=== PATIENT | male | born 1940 | race Caucasian/White ===

== ENCOUNTER → 2016-07-17 | Day surgery (SDC) | payer OTHER ==
[~2016-07-17] VITALS: Ht 182.9 cm; Wt 117.9 kg
[~2016-07-17] MED LIST: AMOXICILLIN500 M2 PO; ASPIRIN EC81 M1 PO; AUGMENTIN 875-1 EACH PO; CENTRUM SILVER1 EAC4 PO; FLOMAX0.4 M1 PO; FLUOXETINE HCL20 M2 PO; INCRUSE ELLI62.5 MCG INH; LOSARTAN POTASS50 M1 PO; METFORMIN HCL1000 M2 PO; SIMVASTATIN40 M1 PO; TRAZODONE HCL50 M1 PO; VENTOLIN HFA18 GM INH
--- NOTE | 2016-07-17 12:08 | History & Physical Pre-Op ---
General Information and HPI History of Present Illness: Fredy is a 75-year-old diabetic who presents status post laceration to the plantar right foot with a retained foreign body. An aborted attempt to remove the foreign body in the office was made and the patient was given by mouth antibiotics. Patient returned for follow-up and was noted to have developed a cellulitis in the interim. Included the patient will require a formal I&D of his foreign body in the OR. The patient denies any systemic signs of infection. Patient denies nausea vomiting fever chills. Allergies/Medications Allergies: Coded Allergies: NO KNOWN ALLERGIES (08/04/11) Home Med list Albuterol Sulfate (Ventolin Hfa) 90 MCG HFA.AER.AD 2 PUF INH Q4-6 PRN PRN COPD (Reported) Aspirin (Ecotrin*) 81 MG TABLET.DR 1 TAB PO QOD PROPHO (Reported) Fluoxetine HCl 20 MG CAPSULE 1 CAP PO DAILY DEPRESSION (Reported) Losartan Potassium 50 MG TABLET 1 TAB PO DAILY HTN (Reported) Metformin HCl (Metformin HCl ER) 1,000 MG TAB.ER.24 1 TAB PO DAILY DM II ( Reported) Simvastatin (Simvastatin*) 40 MG TABLET 1 TAB PO QPM CHOLESTEROL (Reported) Tamsulosin HCl (Flomax) 0.4 MG CAP.ER.24H 1 CAP PO DAILY BPH (Reported) Trazodone HCl 50 MG TABLET 0.5 TAB PO QPM SLEEP (Reported) Umeclidinium [place] (Incruse Ellipta) 62.5 MCG/ACTUATION BLST.W.DEV BREATH ( Reported) Past History Medical History Endocrine: diabetes Pneumonia Vaccine: 08/19/03 Surgical History Pertinent Surgical History: non-contributory Review of Systems Review of Systems: Unremarkable except for that noted history of present illness. Exam & Diagnostic Data Physical Exam: Lungs clear bilaterally. Heart sounds rate and rhythm regular. Lower extremity physical exam demonstrates intact pedal pulses bilaterally. Both dorsalis pedis and posterior tibial arteries are palpable bilaterally. Patient with a sensory deficit noted to the plantar foot in a moccasin type distribution. There is a stellate portal entry noted at the plantar lateral aspect of the right forefoot. There is probing noted centrally. There is approximate 3-4 cm of cellulitis emanating from the open wound. No obvious fluctuance or crepitus identified. There is some purulent drainage noted from the central aspect of the wound. X- ray findings demonstrated a radiopaque foreign body noted at the plantar aspect of the fifth metatarsal head. Assessment/Plan Assessment/Plan: Right foot cellulitis with the retained foreign body, status post puncture wound. A lengthy discussion reviewing both surgical and conservative options held the patient at bedside and the patient elects to go forward with surgery despite the risks. As Ranked By This Provider Problem List: 1. Cellulitis of right lower extremity Attending MD Review Statement Attending Statement Attending MD Statement: examined this patient
--- NOTE | 2016-07-17 13:54 | Operative Report ---
Operative/Inv Procedure Report Surgery Date: 07/17/16 Name of Procedure: 1 incision and drainage 2 closure of complicated laceration deep with local random advancement flap 3 intraoperative administration of ankle block anesthesia Pre-Operative Diagnosis: 1 open infected wound right foot with retained foreign body 2 Shar laceration plantar right foot Post-Operative Diagnosis: The same Estimated Blood Loss: scant Surgeon/Application Systems Engineer: REGULO OCHOA,TOÑA Harrison DPM Anesthesia: moderate sedation, block Operative/Procedure Note Note: After obtaining informed consent the patient was brought to the operating room and placed on the operating table in the supine position. The patient was then securely fastened to the operating table utilizing safety belt. After administration of IV sedation, 10 mL of 0.5% Marcaine by was infiltrated about the patient's right ankle. Well-padded ankle tourniquet was packed about the patient's right lower extremity. 2 g of Ancef were delivered intravenously times one dose. The right foot and ankle within scrubbed prepped and draped in usual aseptic manner. The right lower extremity was elevated to examine to limb , which point the ankle tourniquet was inflated 250 mmHg. Attention directed plantar lateral aspect the right foot, where a linear laceration was identified with cellulitis emanating from the wound. There was laceration to the deep fascia with retained debris. Under intraoperative image intensification, the foreign body was identified and removed. Nipple was then irrigated with 3 L of normal sterile saline infusion 50,000 units of bacitracin. Following this, the foot was redraped and the surgeon's top gloves were changed clean gloves. A plantar lateral plantar medial flap was then developed with undermining, mobilization and advancement adjacent tissues. The plantar lateral flap was rotated towards central aspect the wound and held on its deep side 3-0 Vicryl. The plantar lateral flap, was similarly mobilized and advanced and again held centrally with 3-0 Vicryl. The septae stitches reapproximated 4-0 Vicryl and the skin edges reapproximated 3-0 nylon. Incision was dressed with Xeroform 4 x 4's Kerlix and Rene wrap. Attention was noted tolerate both procedure and anesthesia well and the patient was transported from the operating room to recovery by sent stable best assess intact all digits right foot.
== END ==
LOC: STS 02:43
DX: S91.321A Laceration with foreign body, right foot, initial encounter (principal); L03.115 Cellulitis of right lower limb; W45.8XXA Other foreign body or object entering through skin, initial encounter; E11.9 Type 2 diabetes mellitus without complications; Z79.84 Long term (current) use of oral hypoglycemic drugs; Z79.82 Long term (current) use of aspirin
CPT/HCPCS: J0690; J1885; J2001; J2250

== ENCOUNTER 2016-08-11 16:40 | Inpatient (IN) | payer OTHER ==
[~2016-08-11] VITALS: Ht 182.9 cm; Wt 117.9 kg
[~2016-08-11 16:40] MED LIST changes: -AMOXICILLIN500 M2 PO; -AUGMENTIN 875-1 EACH PO; -CENTRUM SILVER1 EAC4 PO
--- NOTE | 2016-08-11 17:15 | ED GENERAL ADULT ---
History of Present Illness General Chief Complaint: General Adult Stated Complaint: WEAKNESS FEVER Source: patient, family, old records, EMS Exam Limitations: no limitations Vital Signs & Intake/Output Vital Signs & Intake/Output Vital Signs Date Time Temp Pulse Resp B/P B/P Pulse O2 O2 Flow FiO2 Mean Ox Delivery Rate 08/12 0730 100.5 08/12 0713 100.5 78 20 110/59 92 08/12 0048 85 92 08/11 2245 78 92 08/11 2200 Room Air 08/11 2105 98.3 91 18 142/82 92 Room Air 08/11 1647 99.4 94 20 156/70 96 Room Air ED Intake and Output 08/12 0000 08/11 1200 Intake Total 4120 Output Total 100 Balance 4020 Intake, IV 4000 Intake, Oral 120 Output, Urine 100 Patient 260 lb Weight Weight Reported by Patient Measurement Method Allergies Coded Allergies: adhesive (BLISTERS 08/11/16) Reconcile Medications Albuterol Sulfate (Ventolin Hfa) 90 MCG HFA.AER.AD 2 PUF INH Q4-6 PRN PRN COPD (Reported) Aspirin (Ecotrin*) 81 MG TABLET.DR 1 TAB PO QOD PROPHO (Reported) Fluoxetine HCl 20 MG CAPSULE 1 CAP PO DAILY DEPRESSION (Reported) Losartan Potassium 50 MG TABLET 1 TAB PO DAILY HTN (Reported) Metformin HCl (Metformin HCl ER) 1,000 MG TAB.ER.24 1 TAB PO DAILY DM II ( Reported) Multivit-Min/FA/Lycopen/Lutein (Centrum Silver Men Tablet) 300 MCG-600 MCG-300 MCG TABLET 1 TAB PO DAILY SUPPLEMENT (Reported) Simvastatin (Simvastatin*) 40 MG TABLET 1 TAB PO QPM CHOLESTEROL (Reported) Tamsulosin HCl (Flomax) 0.4 MG CAP.ER.24H 1 CAP PO DAILY BPH (Reported) Trazodone HCl 50 MG TABLET 0.5 TAB PO QPM SLEEP (Reported) Umeclidinium [place] (Incruse Ellipta) 62.5 MCG/ACTUATION BLST.W.DEV 1 PUFF INH DAILY COPD (Reported) Triage Note: BIBA FROM HOME. PER EMS INCREASED WEAKNESS, S/P FALL A FEW HOURS AGO. ON ROUTE PT BECAME NAUSEOUS AND VOMITTED. PT ALERT, PLACED ON MONITOR. Triage Nurses Notes Reviewed? yes Onset: Abrupt Duration: day(s):, constant, getting worse Timing: recent history Injury Environment: home No Modifying Factors: none HPI: 75-year-old male comes into emergency room with complaints of fever or chills body aches and some redness to his right leg. Patient had a recent surgery performed by Dr. Marr in the middle of July on the right foot. Patient had an infection. Hx of diabetes. Patient was hospitalized. Denies any chest pain shortness of breath. Denies any other associated symptoms. (BRIAN BRYSON) Past History Travel History Traveled to [place] past 21 day No Medical History Any Pertinent Medical History? see below for history Gastrointestinal: hiatal hernia Endocrine: diabetes Pneumonia Vaccine: 08/19/03 Surgical History Surgical History: right foot Psychosocial History What is your primary language Czech Tobacco Use: Never used ETOH Use: denies use Family History Hx Contributory? No (BRIAN BRYSON) Review of Systems Review of Systems Constitutional: Reports: see HPI. EENTM: Reports: no symptoms. Respiratory: Reports: no symptoms. Cardiovascular: Reports: no symptoms. GI: Reports: no symptoms. Genitourinary: Reports: no symptoms. Musculoskeletal: Reports: see HPI. Skin: Reports: see HPI. Neurological/Psychological: Reports: no symptoms. Hematologic/Endocrine: Reports: no symptoms. Immunologic/Allergic: Reports: no symptoms. All Other Systems: Reviewed and Negative (BRIAN BRYSON) Physical Exam Physical Exam General Appearance: well developed/nourished, alert, awake Head: atraumatic, normal appearance Eyes: Bilateral: normal appearance. Ears, Nose, Throat: normal pharynx, normal ENT inspection Neck: normal inspection Respiratory: normal breath sounds, no respiratory distress Cardiovascular: regular rate/rhythm, tachycardia Gastrointestinal: soft Back: normal inspection Extremities: erythema to right lower leg below knee, warmth, erythema to right foot, open wound, Neurologic/Psych: awake, alert, oriented x 3, normal mood/affect Skin: warm/dry, see above Core Measures ACS in differential dx? Yes CVA/TIA Diagnosis: No Severe Sepsis Present: Yes BC x2: Yes Lactic Acid x2: Yes IV ABX Broad Spectrum: Yes NS/LR Started: Yes Septic Shock Present: No (BRIAN BRYSON) Progress Differential Diagnoses I considered the following diagnoses in my evaluation of the patient: Cellulitis, osteomyelitis, sepsis, DVT, pneumonia, UTI, Plan of Care: Orders Procedure Date/time Status Consistent Carbohydrate 3 08/12 B Active CBC WITHOUT DIFFERENTIAL 08/12 06 Active BASIC ELECTROLYTES PLUS BUN&CR 08/12 06 Active Vital Signs 08/11 2224 Active Teach/Educate 08/12 2223 Active Pain Treatment and Response 08/11 222 Active Nutritional Intake, Monitor 08/11 222 Active Isolation 08/11 2224 Active Intake & Output 08/11 222 Active Patient Care Conference 08/12 2223 Active Activity/Ambulation 08/12 2223 Active Pathway - chart 08/11 2114 Active Pathway - chart 08/11 205 Active OXYGEN SETUP (GEN) 08/12 1915 Complete Saline Lock 08/12 1915 Active Misc Message 08/12 1915 Active ED Holding Orders 08/12 1915 Active Vital Signs 08/12 1915 Active Activity/Ambulation 08/12 1915 Active Code Status 08/11 191 Active Patient Data 08/11 1850 Active Admit to inpatient 08/11 1849 Active BLOOD CULTURE 08/11 1745 Active Intake & Output 08/11 1728 Active GLYCOSYLATED HGB 08/11 1720 Active BLOOD CULTURE 08/11 1654 Active LACTIC ACID 08/11 1654 Active WESTERGREN SED RATE 08/11 1654 Complete C-REACTIVE PROTEIN 08/11 1654 Active COMPREHENSIVE METABOLIC PANEL 08/11 1654 Active CBC WITHOUT DIFFERENTIAL 08/11 1654 Complete EKG 08/11 1650 Active TRC EVALUATION (GEN) 08/11 UNK Complete CONTIN. POSITIVE AIRWAY PRESS 08/11 UNK Complete PT Evaluate & Treat 08/11 UNK Active House Staff 08/11 UNK Active Lab Add-on Test 08/11 UNK Active VTE Mechanical Prophylaxis 08/11 UNK Active FingerStick- Glucose 08/11 UNK Active Elevate 08/11 UNK Active PHYSICIAN CONSULT 08/11 UNK Active Current Medications Sig/Yenifer Start time Last Medication Dose Stop Time Status Admin Atorvastatin Calcium 20 MG 1700 08/12 1700 AC (Lipitor) Aspirin Buffered 81 MG DAILY 08/12 1000 AC (Ecotrin) Enoxaparin Sodium 40 MG DAILY 08/12 1000 AC (Lovenox) Fluoxetine HCl 20 MG DAILY 08/12 1000 AC (Prozac) Losartan Potassium 50 MG DAILY 08/12 1000 AC (Cozaar) Tamsulosin HCl 0.4 MG DAILY 08/12 1000 AC (Flomax) Tiotropium [place] 1 PUF DAILY 08/12 1000 AC (Spiriva) Insulin Aspart 0 TIDAC 08/12 0800 AC (NovoLOG) Cefazolin Sodium 1,000 MG IQ8 08/12 0000 CAN (Kefzol-Ancef Inj) Ampicillin Sodium/ 3,000 MG Q6 08/11 2359 AC 08/12 Sulbactam Sodium 0501 (Unasyn) Sodium Chloride 100 ML (Normal Saline 0.9%) Trazodone HCl 25 MG QPM 08/11 2200 AC 08/11 (Desyrel) 2259 Acetaminophen 650 MG Q6P PRN 08/11 2114 AC 08/12 (Tylenol) 0730 Ibuprofen 600 MG Q6P PRN 08/11 2114 AC (Motrin) Morphine Sulfate 2 MG Q6-PRN PRN 08/11 2114 AC (Morphine) Albuterol Sulfate 2 PUF Q4-6 PRN PRN 08/11 2100 AC (Ventolin) Laboratory Tests 08/11/16 1954: Lactic Acid Cancelled 08/11/16 1720: Anion Gap 10, Estimated GFR > 60, BUN/Creatinine Ratio 27.5 H, Glucose 174 H, Hemoglobin A1c Pending, Lactic Acid 1.3, Calcium 9.0, Total Bilirubin 0.9, AST 28, ALT 48, Alkaline Phosphatase 71, C-Reactive Prot, Quant 1.6 H, Total Protein 6.6, Albumin 3.8, Globulin 2.8, Albumin/Globulin Ratio 1.4, CBC w Diff MAN DIFF ORDERED, RBC 4.79, MCV 88.1, MCH 29.3, RDW 13.8, MPV 8.0, Gran % 93.8 H, Lymphocytes % 1.3 L, Monocytes % 4.9, Eosinophils % 0, Basophils % 0 L, Absolute Granulocytes 13.6 H, Segmented Neutrophils 92 H, Band Neutrophils 5, Absolute Lymphocytes 0.2 L, Lymphocytes 1 L, Monocytes 2, Absolute Monocytes 0.7 H, Absolute Eosinophils 0, Absolute Basophils 0, Platelet Estimate ADEQUATE , Normocytic RBCs VERIFIED, Normochromic RBCs VERIFIED, PUBS MCHC 33.3, ESR Westergren 8 Microbiology 08/11 1807 BLOOD: Blood Culture - RECD 08/11 1803 BLOOD: Blood Culture - RECD 08/11 1654 BLOOD: Blood Culture - CAN Cancelled: Quantity not sufficient for Aerobic blood culture bottle. Diagnostic Imaging: Viewed by Me: Radiology Read. Discussed w/RAD: Radiology Read. Radiology Impression: SERVICE DATE: 08/11/16 EXAM TYPE: RAD - XRY-FOOT COMPLETE, R; [id number], RIGHT EXAMINATION: XR TIBIA AND FIBULA AND FOOT, RIGHT CLINICAL INFORMATION: 75-year-old man with pain and swelling. Evaluate for osteomyelitis. COMPARISON: None TECHNIQUE: AP and lateral views of the right tibia and fibula and foot were obtained. FINDINGS: Tibia/fibula: There is no evidence of acute fracture. Alignment remains anatomic. Prominent arterial atherosclerotic calcifications are visible. There is no abnormal periosteal reaction, osteolysis, or soft tissue gas seen. Foot: There is no evidence of acute fracture. Alignment is difficult to assess with the acquired images, although there is probably a prominent hallux valgus deformity. Degenerative changes are noted at the MTP and PIP joints. There are small plantar and Achilles calcaneal spurs. Again, no discrete osteolysis, abnormal periosteal reaction, or soft tissue gas is appreciated. IMPRESSION: No convincing radiographic evidence of osteomyelitis. DICTATED BY: CHRISTIAN CRUZ MD DATE/TIME DICTATED:08/11/161813 BAR MANAGER:APARNA Initial ED EKG: normal intervals, normal p-waves, normal sinus rhythm, rate (97) , nonspecific ST T wave chg (BRIAN BRYSON) Departure Departure Disposition: STILL A PATIENT Condition: Stable Clinical Impression Primary Impression: Sepsis Secondary Impressions: Cellulitis of right lower extremity Referrals: LIO WALL MD (PCP/Family) Departure Forms: Customer Survey General Discharge Information Admission Note Spoke With: LIO WALL MD Documentation of Exam: Documentation of any treatments & extenuating circumstances including Concerns Regarding Discharge (functional status, medication knowledge or non-compliance, living conditions, etc.) that warrant an admission rather than observation: Patient will require IV antibiotics. IV fluids. Patient tachycardia. Elevated white count. Positive source of infection. Febrile at home. Patient will require bone care consultation. Diabetic. Patient would do poorly as an outpatient. (BRIAN BRYSON) PA/WOOL CARDER Co-Sign Statement Statement: ED Attending supervision documentation- [X] I saw and evaluated the patient. I have also reviewed all the pertinent lab results and diagnostic results. I agree with the findings and the plan of care as documented in the PA's/WOOL CARDER's documentation. [X] I have reviewed the ED Record and agree with the PA's/WOOL CARDER's documentation. [] Additions or exceptions (if any) to the PAs/WOOL CARDER's note and plan are summarized below: [] (RAPHAEL BOWLES,ROSALINE Bland) Critical Care Note Critical Care Note Critical Care Time: 30-74 min (35) (DAYANARA HOUSTON,BRIAN)
[2016-08-11] MEDS ORDERED: CENTRUM SILVER1 EAC4 PO (17:18)
[2016-08-11 17:32] LABS: ABSOLUTE BASOPHIL COUNT 0 /CUMM (0.0-0.2); ABSOLUTE EOSINOPHIL COUNT 0 /CUMM (0.0-0.7); ABSOLUTE GRANULOCYTE CT 13.6 /CUMM (1.4-6.5); ABSOLUTE LYMPH COUNT 0.2 /CUMM (1.2-3.4); ABSOLUTE MONOCYTE COUNT 0.7 /CUMM (0.10-0.60); BASOPHIL % 0 % (0.0-2.0); EOSINOPHIL % 0 % (0-5); GRANULOCYTE % 93.8 % (42.2-75.2); HEMATOCRIT 42.2 % (42-52); MEAN CORPUSCULAR HGB 29.3 PG (27.0-31.0); MEAN CORPUSCULAR HGB CONC 33.3 G/DL (33.0-37.0); MEAN CORPUSCULAR VOLUME 88.1 FL (80.0-94.0); PLATELET COUNT 164 /CUMM (130-400); RBC DISTRIBUTION WIDTH 13.8 % (11.5-14.5); RED BLOOD CELL CT 4.79 /CUMM (4.70-6.10); WHITE BLOOD CELL COUNT 14.5 /CUMM (4.8-10.8)
--- NOTE | 2016-08-11 18:20 | RADIOLOGY REPORT ---
EXAMINATION: XR TIBIA AND FIBULA AND FOOT, RIGHT CLINICAL INFORMATION: 75-year-old man with pain and swelling. Evaluate for osteomyelitis. COMPARISON: None TECHNIQUE: AP and lateral views of the right tibia and fibula and foot were obtained. FINDINGS: Tibia/fibula: There is no evidence of acute fracture. Alignment remains anatomic. Prominent arterial atherosclerotic calcifications are visible. There is no abnormal periosteal reaction, osteolysis, or soft tissue gas seen. Foot: There is no evidence of acute fracture. Alignment is difficult to assess with the acquired images, although there is probably a prominent hallux valgus deformity. Degenerative changes are noted at the MTP and PIP joints. There are small plantar and Achilles calcaneal spurs. Again, no discrete osteolysis, abnormal periosteal reaction, or soft tissue gas is appreciated. IMPRESSION: No convincing radiographic evidence of osteomyelitis.
--- NOTE | 2016-08-11 20:12 | History & Physical ---
JANELLE BOWLES[place] [place]: General Information and HPI MD Statement: I have seen and personally examined DOMITILA SOL and documented this H&P. The patient is a 75 year old M who presented with a patient stated chief complaint of fever. Source of Information: patient, family, old records Exam Limitations: no limitations History of Present Illness: Mr. Sol is a 75 y/o M with PMHx of non-insulin dependent T2DM, TORI on CPAP and recent I&D and flap closure of complicated laceration of right foot with retained foreign body (07/17) who presents with fevers, chills and right leg erythema of several hours duration. History is obtained from patient and his at bedside. Patient was in his usual state of health until several hours before current presentation when he slipped and fell down on the floor. According to his , he was "wobbly" following the fall and had to be helped to get up on his feet again. Following the fall, he complained of being cold. His checked his temperature which came back at 101.8. His also noted that his right lower leg was red which she does not recall being present before. Patient reports lack of appetite and nausea and states that he vomited twice en route to the ED. Patient reports that his right leg occasionally feels slightly painful. ROS is also positive for cough productive of clear sputum which his attributes to his allergies, increased urinary frequency and nocturia. He denies chest pain, shortness of pain, abdominal pain and dysuria. Of note, patient had recent I&D and flap closure of complicated laceration of right foot with retained foreign body (07/17) by Dr. Marr, after stepping on glass shards which remained embedded on the plantar surface of his right foot for several months. Following the surgery, he took doxycycline for three weeks which he recently stopped taking. Allergies/Medications Allergies: Coded Allergies: adhesive (BLISTERS 08/11/16) Home Med list Albuterol Sulfate (Ventolin Hfa) 90 MCG HFA.AER.AD 2 PUF INH Q4-6 PRN PRN COPD (Reported) Aspirin (Ecotrin*) 81 MG TABLET.DR 1 TAB PO QOD PROPHO (Reported) Fluoxetine HCl 20 MG CAPSULE 1 CAP PO DAILY DEPRESSION (Reported) Losartan Potassium 50 MG TABLET 1 TAB PO DAILY HTN (Reported) Metformin HCl (Metformin HCl ER) 1,000 MG TAB.ER.24 1 TAB PO DAILY DM II ( Reported) Multivit-Min/FA/Lycopen/Lutein (Centrum Silver Men Tablet) 300 MCG-600 MCG-300 MCG TABLET 1 TAB PO DAILY SUPPLEMENT (Reported) Simvastatin (Simvastatin*) 40 MG TABLET 1 TAB PO QPM CHOLESTEROL (Reported) Tamsulosin HCl (Flomax) 0.4 MG CAP.ER.24H 1 CAP PO DAILY BPH (Reported) Trazodone HCl 50 MG TABLET 0.5 TAB PO QPM SLEEP (Reported) Umeclidinium Gibson (Incruse Ellipta) 62.5 MCG/ACTUATION BLST.W.DEV 1 PUFF INH DAILY COPD (Reported) Past History Travel History Traveled to [place] past 21 day No Medical History Cardiovascular: hypertension Respiratory: COPD, obstructive sleep apnea Gastrointestinal: hiatal hernia Renal: benign prost hyperplasia Psychiatric: depression Endocrine: diabetes Other Medical Hx: complicated laceration of right foot with retained foreign body Pneumonia Vaccine: 08/19/03 Surgical History Surgical History: right foot I&D and flap closure of laceration Past Family/Social History Psychosocial History Where do you live? Home Who Do You Live With? spouse Services at Home: None Primary Language: Andorran Smoking Status: Former Smoker (30 Pack Years, Quit 20 Yrs Ago) Functional Ability ADLs Independent: dressing, eating, toileting, bathing. Ambulation: walking stick IADLs Independent: shopping, housework, finances, food prep, telephone, transportation , medication admin. Review of Systems Review of Systems Constitutional: Reports: chills, fever, weakness. EENTM: Reports: no symptoms. Cardiovascular: Reports: peripheral edema (right leg). Denies: chest pain. Respiratory: Reports: cough, sputum production. Denies: short of breath. GI: Reports: nausea, vomiting. Denies: abdominal pain. Genitourinary: Reports: frequency, nocturia. Denies: dysuria. Musculoskeletal: Reports: no symptoms. Skin: Reports: erythema (right leg). Neurological/Psychological: Reports: no symptoms. Hematologic/Endocrine: Reports: no symptoms. Immunologic/Allergic: Reports: no symptoms. All Other Systems: Reviewed and Negative Exam & Diagnostic Data Last 24 Hrs of Vital Signs/I&O Vital Signs Date Time Temp Pulse Resp B/P B/P Pulse O2 O2 Flow FiO2 Mean Ox Delivery Rate 08/11 1647 99.4 94 20 156/70 96 Room Air Physical Exam General Appearance Oriented X3, No Acute Distress, Drowsy Skin No Rashes Skin Temp/Moisture Exam: Warm/Dry Sepsis Skin Exam (color): Normal for Ethnicity HEENT Atraumatic, Mucous Membr. moist/pink Neck Supple, No JVD Cardiovascular Regular Rate, Normal S1, Normal S2 Lungs Clear to Auscultation Abdomen Soft, No Tenderness, Positive Bowel Sounds, Obese Extremities No Clubbing, No Cyanosis, Right Lower Extremity with Erythema Extending from Ankle to Knee and 2+ Pitting Edema, Left Lower Extremity with 1+ Pitting Edema Last 24 Hrs of Labs/Faheem: Laboratory Tests 08/11/161953: Lactic Acid Cancelled 08/11/16 1720: Anion Gap 10, Estimated GFR > 60, BUN/Creatinine Ratio 27.5 H, Glucose 174 H, Lactic Acid 1.3, Calcium 9.0, Total Bilirubin 0.9, AST 28, ALT 48, Alkaline Phosphatase 71, C-Reactive Prot, Quant 1.6 H, Total Protein 6.6, Albumin 3.8, Globulin 2.8, Albumin/Globulin Ratio 1.4, CBC w Diff MAN DIFF ORDERED, RBC 4.79, MCV 88.1, MCH 29.3, RDW 13.8, MPV 8.0, Gran % 93.8 H, Lymphocytes % 1.3 L, Monocytes % 4.9, Eosinophils % 0, Basophils % 0 L, Absolute Granulocytes 13.6 H, Segmented Neutrophils 92 H, Band Neutrophils 5, Absolute Lymphocytes 0.2 L, Lymphocytes 1 L, Monocytes 2, Absolute Monocytes 0.7 H, Absolute Eosinophils 0 , Absolute Basophils 0, Platelet Estimate ADEQUATE, Normocytic RBCs VERIFIED, Normochromic RBCs VERIFIED, PUBS MCHC 33.3, ESR Westergren 8 Microbiology 08/11 1807 BLOOD: Blood Culture - RECD 08/11 180 BLOOD: Blood Culture - RECD 08/11 1653 BLOOD: Blood Culture - CAN Cancelled: Quantity not sufficient for Aerobic blood culture bottle. Diagnostic Data Other Results XR R FOOT/TIBIA-FIBULA: No convincing radiographic evidence of osteomyelitis. Assessment/Plan Assessment: Mr. Sol is a 75 y/o M with PMHx of non-insulin dependent T2DM, TORI on CPAP and recent I&D and flap closure of complicated laceration of right foot with retained foreign body (07/17) who is admitted for sepsis secondary to right leg cellulitis. #Sepsis 2/2 right leg cellulitis: Presented with fever, chills and right leg erythema. Had fever with temperature of 101.8 at home but afebrile here. WBC count 14.5 with 5% bands. Hemodynamically stable with lactic acid of 1.3. Recent I&D and flap closure of complicated laceration of right foot with retained foreign body (07/17) followed by 3 weeks of doxycycline. XR R foot/tibia-fibula with no evidence of osteomyelitis. S/p 1 dose of vancomycin and ceftazidime in the ED. * Admit to General Medicine. * Start Unasyn 3 g IV Q6H. * Wound care consult in the AM. * Check BCx. #Non-insulin dependent T2DM: Takes metformin ER 1000 mg PO daily. * Hold oral hypoglycemic agents while inpatient. * Accu-checks and low-dose sliding scale Novolog TIDAC. * Check HbA1c. #HTN: * Continue uvzgy-jg-rvxemsjgu losartan 50 mg PO daily. #HLD: Takes simvastatin 40 mg PO daily and daily low-dose aspirin. * Atorvastatin 20 mg PO daily while inpatient. * Continue zggpa-vt-pvahryavm aspirin 81 mg PO daily. #COPD: Not on home oxygen. Currently not in exacerbation. Satting well on room air. * Continue xehjx-mg-pzmjrbxzp Incruse Ellipta 62.5 mg 1 puff daily and albuterol inhaler PRN. #TORI: * Continue nocturnal CPAP. #BPH: * Continue vefhc-rn-gfxmhxrel tamsulosin 0.4 mg PO daily. #Depression: * Continue piljk-vr-zchbbdigo fluoxetine 20 mg PO daily. #Insomnia: * Continue vuuqs-xu-sgygvvdix trazodone 25 mg PO daily. Diet: Consistent Carbohydrate 3 DVT PPx: Lovenox and ALPs CODE: FULL As Ranked By This Provider Problem List: 1. Sepsis 2. Cellulitis of right lower extremity 3. HTN (hypertension) 4. HLD (hyperlipidemia) 5. Non-insulin dependent type 2 diabetes mellitus 6. COPD (chronic obstructive pulmonary disease) 7. TORI on CPAP 8. BPH (benign prostatic hyperplasia) 9. Depression 10. Insomnia Core Measures/Miscellaneous Acute Coronary Syndrome ACS Diagnosis: No Cerebrovascular Accident CVA/TIA Diagnosis: No Congestive Heart Failure CHF Diagnosis: No VTE (View Protocol) VTE Risk Factors: Acute medical illness, Age > 40, Obesity [facility] prophylaxis d/t: No contraindications No VTE Pharm Prophylaxis d/t: No contraindications VTE Diagnosis: No VTE Type: NONE VTE Confirmed by (Test): NONE Sepsis (View Protocol) Severe Sepsis Present: No Septic Shock Septic Shock Present: No Miscellaneous Documentation Attending Case Discussed With: LIO WALL MD Primary Care Physician: LIO WALL MD Patient sees these Specialists Design Studio Consultant Jazmin Man MD Pet Sitting Baltazar Marr DPM Level of Patient Care: General Medicine CRICKET HUANG 08/11/162041: Resident Review Statement Resident Statement: examined this patient, discussed with general internist, agreed with general internist, discussed with family, reviewed images, amended to note Other Findings: This is a 75 years old gentleman with past medical history significant for hypertension hyperlipidemia and nef-pdvyvmj-kskvqnyaf diabetic mellitus who is presenting with one-day history of fever general body weakness and a fall. The patient reports stepping on broken glasses and had a retained piece of glass in his right foot which necessitated a procedure by Dr. Baron to remove the foreign body. He was fairly well until today when the noted that he had fever temperatures recorded 101.8 and also weak and fell after tripping. Patient denies any abdominal pain nausea and a mild low reports one episode of vomiting while on transit come into the hospital. He denies any dysuria or change in urine frequency, he has no cough chest pain or palpitation. Vital signs on arrival temperature 99.4 heart rate of 94 respiration of 20 blood pressure 156/70 and saturating 96% on room air Physical examination: Patient lying comfortably on the bed not in any acute distress alert and oriented to time place and person, by the bedside. HEENT: PERRLA, no distended neck vessels Chest: Clear lungs bilaterally Heart: Regular rate and rhythm, S1 S2 normal, no murmurs Extremities: Mild bilateral pitting edema more erythematous on the morin of the right lower limb extend from below the knee to just above the ankle joint more prominent on the anterior there is no obvious discharge Labs: Leukocytosis 14,500 with left shift to granulocytes 93.8 and 22 bands, ESR of 8, potassium 3.7, BUN of 22. Lactic acid 1.3 and CRP of 1.6 Imaging: Tibia-fibula x-ray and x-ray of the foot does not show any osteomyelitis or fractures Assessment and plan 76 years old with tjr-bjbvsan-uqnizsuzs diabetes mellitus and history of foot ulcer after injury with broken glass and having a foreign substance presented with one-day history of fever general body weakness and a fall found to have leukocytosis of 14,500 with left shift and 92 bands Problem list Cellulitis of the right lower limb Sepsis Eio-gqcshax-etsyxokya diabetes mellitus BPH Hypertension Hyperlipidemia Obstructive sleep apnea Admit the patient to general medicine floor Start the patient on IV Unasyn 3 g every 6 Blood culture, follow-up for any growth and did not O Álvarez of antibiotic treatment for sensitivity Will hold patient's metformin and to start on insulin sliding scale low-dose Accu-Cheks Consistent carbohydrate 3 diet TRC evaluation and CPAP at bedtime Continue home antihypertensive medication losartan 50 mg daily Continue with tamsulosin 0.4 mg
[2016-08-11 21:05] VITALS: BP 142/82
[2016-08-12 07:13] VITALS: BP 110/59
--- NOTE | 2016-08-12 08:18 | PN- Housestaff ---
Subjective Follow-up For: Chronic hypoxic respiratory failure COPD exacerbation Acute on chronic anemia Subjective: Patient seen and examined this morning. Resting comfortably in bed with no acute complaints. Reports a slight improvement in his leg in terms of the size of redness and pain. He denies any fever, chills, chest discomfort, palpitations, dyspnea, abdominal pain, nausea, vomiting, headache. No events reported overnight. Review of Systems Constitutional: Reports: see HPI. Objective Last 24 Hrs of Vital Signs/I&O Vital Signs Date Time Temp Pulse Resp B/P B/P Pulse O2 O2 Flow FiO2 Mean Ox Delivery Rate 08/12 0730 100.5 08/12 0713 100.5 78 20 110/59 92 08/12 0048 85 92 08/11 2245 78 92 08/11 2200 Room Air 08/11 2105 98.3 91 18 142/82 92 Room Air 08/11 1647 99.4 94 20 156/70 96 Room Air Intake & Output 08/12 1600 08/12 0800 08/12 0000 Intake Total 350 4120 Output Total 100 Balance 350 4020 Intake, IV 100 4000 Intake, Oral 250 120 Output, Urine 100 Patient 117.934 kg Weight Weight Reported by Patient Measurement Method Physical Exam General Appearance: Alert, Cooperative, No Acute Distress Other Physical Findings: Skin No Rashes Skin Temp/Moisture Exam: Warm/Dry HEENT Atraumatic, Mucous Membr. moist/pink Neck Supple, No JVD Cardiovascular Irregularly irregular Lungs Scattered Expiratory Wheezes Distributed Throughout Bilateral Lung Chacon, Bibasilar Rhonchi Abdomen Soft, No Tenderness, Positive Bowel Sounds Extremities No Clubbing, No Cyanosis, No Edema Current Medications: Current Medications Sig/Yenifer Start time Last Medication Dose Route Stop Time Status Admin Acetaminophen 650 MG Q6P PRN 08/11 2114 AC 08/12 PO 0730 Albuterol Sulfate 2 PUF Q4-6 PRN PRN 08/11 2100 AC INH Ampicillin Sodium/ 3,000 MG Q6 08/11 2359 AC 08/12 Sulbactam Sodium IV 0501 Sodium Chloride 100 ML Aspirin Buffered 81 MG DAILY 08/12 1000 AC PO Aspirin Buffered 81 MG .[QOD] 08/11 2100 DC PO Atorvastatin Calcium 20 MG 1700 08/12 1700 AC PO Cefazolin Sodium 1,000 MG IQ8 08/12 0000 CAN IV Ceftazidime 0 .STK-MED ONE 08/11 1910 DC .ROUTE Ceftazidime 1,000 MG ONCE ONE 08/11 1845 DC 08/11 IV 08/11 184 1927 Enoxaparin Sodium 40 MG DAILY 08/12 1000 AC SC Fluoxetine HCl 20 MG DAILY 08/12 1000 AC PO Ibuprofen 600 MG Q6P PRN 08/115 AC PO Insulin Aspart 0 TIDAC 08/12 0800 AC SC Losartan Potassium 50 MG DAILY 08/12 1000 AC PO Morphine Sulfate 2 MG Q6-PRN PRN 08/115 AC IV Sodium Chloride 1,000 ML BOLUS ONE 08/11 1845 DC 08/11 IV 08/11 194 194 Sodium Chloride 500 ML BOLUS ONE 08/11 1845 DC 08/11 IV 08/11 194 194 Sodium Chloride 1,000 ML BOLUS ONE 08/11 1700 DC 08/11 IV 08/11 175 170 Sodium Chloride 1,000 ML BOLUS ONE 08/11 1700 DC 08/11 IV 08/11 1759 1826 Tamsulosin HCl 0.4 MG DAILY 08/12 1000 AC PO Tiotropium Reedley 1 PUF DAILY 08/12 1000 AC INH Trazodone HCl 25 MG QPM 08/11 2200 AC 08/11 PO 2259 Vancomycin HCl 0 .STK-MED ONE 08/11 1910 DC .ROUTE Vancomycin HCl 1,000 MG ONCE ONE 08/11 1844 DC 08/11 Sodium Chloride 250 ML IV 08/11 Last 24 Hrs of Lab/Faheem Results Last 24 Hrs of Labs/Mics: Laboratory Tests 08/12/16 0748: Sodium Pending, Potassium Pending, Chloride Pending, Carbon Dioxide Pending, Anion Gap Pending, BUN Pending, Creatinine Pending, BUN/Creatinine Ratio Pending , CBC w Diff Pending, WBC Pending, RBC Pending, Hgb Pending, Hct Pending, MCV Pending, MCH Pending, RDW Pending, Plt Count Pending, MPV Pending, PUBS MCHC Pending 08/11/164: Lactic Acid Cancelled 08/11/16 1720: Anion Gap 10, Estimated GFR > 60, BUN/Creatinine Ratio 27.5 H, Glucose 174 H, Hemoglobin A1c Pending, Lactic Acid 1.3, Calcium 9.0, Total Bilirubin 0.9, AST 28, ALT 48, Alkaline Phosphatase 71, C-Reactive Prot, Quant 1.6 H, Total Protein 6.6, Albumin 3.8, Globulin 2.8, Albumin/Globulin Ratio 1.4, CBC w Diff MAN DIFF ORDERED, RBC 4.79, MCV 88.1, MCH 29.3, RDW 13.8, MPV 8.0, Gran % 93.8 H, Lymphocytes % 1.3 L, Monocytes % 4.9, Eosinophils % 0, Basophils % 0 L, Absolute Granulocytes 13.6 H, Segmented Neutrophils 92 H, Band Neutrophils 5, Absolute Lymphocytes 0.2 L, Lymphocytes 1 L, Monocytes 2, Absolute Monocytes 0.7 H, Absolute Eosinophils 0, Absolute Basophils 0, Platelet Estimate ADEQUATE , Normocytic RBCs VERIFIED, Normochromic RBCs VERIFIED, PUBS MCHC 33.3, ESR Westergren 8 Microbiology 08/11 180 BLOOD: Blood Culture - RES GRAM POSITIVE COCCI 08/11 180 BLOOD: Blood Culture - RES GRAM POSITIVE COCCI 08/11 1654 BLOOD: Blood Culture - CAN Cancelled: Quantity not sufficient for Aerobic blood culture bottle. Assessment/Plan Assessment: Mr. Sol is a 75 y/o M with PMHx of non-insulin dependent T2DM, TORI on CPAP and recent I&D and flap closure of complicated laceration of right foot with retained foreign body (07/17) who is admitted for sepsis secondary to right leg cellulitis. #Sepsis 2/2 right leg cellulitis: Presented with fever, chills and right leg erythema. Had fever with temperature of 101.8 at home but afebrile here. WBC count 14.5 with 5% bands. Hemodynamically stable with lactic acid of 1.3. Recent I&D and flap closure of complicated laceration of right foot with retained foreign body (07/17) followed by 3 weeks of doxycycline. XR R foot/tibia-fibula with no evidence of osteomyelitis. S/p 1 dose of vancomycin and ceftazidime in the ED. * Cont Unasyn 3g IV Q6H for now * Check BCx - growing GPC in both bottles * ID consulted, appreciate recs * Wound care consulted, appreciate recs #Non-insulin dependent T2DM: Takes metformin ER 1000 mg PO daily. * Hold oral hypoglycemic agents while inpatient. * Accu-checks and low-dose sliding scale Novolog TIDAC. * HbA1c pending #HTN: * Continue bhwtc-pv-zghidjdua losartan 50 mg PO daily. #HLD: Takes simvastatin 40 mg PO daily and daily low-dose aspirin. * Atorvastatin 20 mg PO daily while inpatient. * Continue uybbt-vr-uobglkrnn aspirin 81 mg PO daily. #COPD: Not on home oxygen. Currently not in exacerbation. Satting well on room air. * Continue vowan-fx-pewxuzzrg Incruse Ellipta 62.5 mg 1 puff daily and albuterol inhaler PRN. #TORI: * Continue nocturnal CPAP. #BPH: * Continue tamsulosin 0.4 mg PO daily. #Depression: * Continue wfvtt-gi-mezubxhfw fluoxetine 20 mg PO daily. #Insomnia: * Continue vyare-gt-uynfxomst trazodone 25 mg PO daily. Diet: Consistent Carbohydrate 3 DVT PPx: Lovenox and ALPs CODE: FULL Problem List: 1. Cellulitis of right lower extremity 2. Sepsis 3. HTN (hypertension) 4. HLD (hyperlipidemia) 5. Non-insulin dependent type 2 diabetes mellitus 6. COPD (chronic obstructive pulmonary disease) 7. TORI on CPAP 8. BPH (benign prostatic hyperplasia) 9. Depression 10. Insomnia Pain Ratin Pain Location: RLE Pain Goal: Remain pain free Pain Plan: Mild pathway Tomorrow's Labs & Rationales: CBC, BEP 7. TORI on CPAP 8. BPH (benign prostatic hyperplasia) 9. Depression 10. Insomnia Pain Ratin Pain Location: 0 Pain Goal: Remain pain free Pain Plan: Mild pathway Tomorrow's Labs & Rationales: CBC, BEP
[2016-08-12 09:50] LABS: ABSOLUTE BASOPHIL COUNT 0 /CUMM (0.0-0.2); ABSOLUTE EOSINOPHIL COUNT 0 /CUMM (0.0-0.7); ABSOLUTE GRANULOCYTE CT 11.9 /CUMM (1.4-6.5); ABSOLUTE LYMPH COUNT 0.3 /CUMM (1.2-3.4); ABSOLUTE MONOCYTE COUNT 0.5 /CUMM (0.10-0.60); BASOPHIL % 0 % (0.0-2.0); EOSINOPHIL % 0 % (0-5); GRANULOCYTE % 93.1 % (42.2-75.2); HEMATOCRIT 41.7 % (42-52); MEAN CORPUSCULAR HGB 29.6 PG (27.0-31.0); MEAN CORPUSCULAR HGB CONC 33.2 G/DL (33.0-37.0); MEAN CORPUSCULAR VOLUME 89.2 FL (80.0-94.0); MEAN PLATELET VOLUME 9.1 FL (7.4-10.4); PLATELET COUNT 134 /CUMM (130-400); RBC DISTRIBUTION WIDTH 14.5 % (11.5-14.5); RED BLOOD CELL CT 4.67 /CUMM (4.70-6.10); WHITE BLOOD CELL COUNT 12.8 /CUMM (4.8-10.8)
--- NOTE | 2016-08-12 10:39 | PN- Att Addend ---
Attending Addendum Attending Brief Note Attending admitting note. 75-year-old gentleman admitted to the hospital with fever chills and rigors. Apparently had a fall yesterday was unable to get up the ambulance was called to his home and he was transported to the hospital. He's been having some pain and discomfort in his right leg with some cough when he fell he was unable to get up and was no evidence of any fracture but there was extensive cellulitis on his right leg. He registered a temperature of 101.8. Patient recently had the spinous surgery for removal of foreign body on his right foot status post removal of foreign body which was class and subsequently doxycycline for 3 weeks. Past medical history COPD Obstructive sleep apnea Hypertension Diabetes Dyslipidemia BPH Intake & Output 08/12 1600 08/12 0800 08/12 0000 Intake Total 350 4120 Output Total 100 Balance 350 4020 Intake, IV 100 4000 Intake, Oral 250 120 Output, Urine 100 Patient 260 lb Weight Weight Reported by Patient Measurement Method Current Medications Sig/Yenifer Start time Last Medication Dose Route Stop Time Status Admin Acetaminophen 650 MG Q6P PRN 08/11 2114 AC 08/12 PO 0730 Albuterol Sulfate 2 PUF Q4-6 PRN PRN 08/11 2100 AC INH Ampicillin Sodium/ 3,000 MG Q6 08/11 2359 AC 08/12 Sulbactam Sodium IV 0501 Sodium Chloride 100 ML Aspirin Buffered 81 MG DAILY 08/12 1000 AC 08/12 PO 0843 Aspirin Buffered 81 MG .[QOD] 08/11 2100 DC PO Atorvastatin Calcium 20 MG 1700 08/12 1700 AC PO Cefazolin Sodium 1,000 MG IQ8 08/12 0000 CAN IV Ceftazidime 0 .STK-MED ONE 08/11 1910 DC .ROUTE Ceftazidime 1,000 MG ONCE ONE 08/11 184 DC 08/11 IV 08/11 1845 1927 Enoxaparin Sodium 40 MG DAILY 08/12 1000 AC 08/12 SC 0843 Fluoxetine HCl 20 MG DAILY 08/12 1000 AC 08/12 PO 0842 Ibuprofen 600 MG Q6P PRN 08/11 2114 AC PO Insulin Aspart 0 TIDAC 08/12 0800 AC SC Losartan Potassium 50 MG DAILY 08/12 1000 AC 08/12 PO 0842 Morphine Sulfate 2 MG Q6-PRN PRN 08/11 2114 AC IV Sodium Chloride 1,000 ML BOLUS ONE 08/11 184 DC 08/11 IV 08/11 Sodium Chloride 500 ML BOLUS ONE 08/11 184 DC 08/11 IV 08/12 1943 194 Sodium Chloride 1,000 ML BOLUS ONE 08/11 1700 DC 08/11 IV 08/11 1758 170 Sodium Chloride 1,000 ML BOLUS ONE 08/11 1700 DC 08/11 IV 08/11 1758 1826 Tamsulosin HCl 0.4 MG 2200 08/12 2200 AC PO Tamsulosin HCl 0.4 MG DAILY 08/12 1000 DC PO Tiotropium Caroleen 1 PUF DAILY 08/12 1000 AC 08/12 INH 0843 Trazodone HCl 25 MG QPM 08/11 2200 AC 08/11 PO 2259 Vancomycin HCl 0 .STK-MED ONE 08/11 1910 DC .ROUTE Vancomycin HCl 1,000 MG ONCE ONE 08/11 1844 DC 08/11 Sodium Chloride 250 ML IV 08/11 Laboratory Tests 08/12 08/11 0748 4 Chemistry Sodium (137 - 145 mmol/L) 134 L Potassium (3.5 - 5.1 mmol/L) 3.7 Chloride (98 - 107 mmol/L) 100 Carbon Dioxide (22 - 30 mmol/L) 26 Anion Gap (5 - 16) 8 BUN (9 - 20 mg/dL) 23 H Creatinine (0.7 - 1.2 mg/dL) 0.8 Estimated GFR (>60 ml/min) > 60 BUN/Creatinine Ratio (7 - 25 %) 28.8 H Lactic Acid Cancelled Hematology CBC w Diff NO MAN DIFF REQ WBC (4.8 - 10.8 /CUMM) 12.8 H RBC (4.70 - 6.10 /CUMM) 4.67 L Hgb (14.0 - 18.0 G/DL) 13.8 L Hct (42 - 52 %) 41.7 L MCV (80.0 - 94.0 FL) 89.2 MCH (27.0 - 31.0 PG) 29.6 RDW (11.5 - 14.5 %) 14.5 Plt Count (130 - 400 /CUMM) 134 MPV (7.4 - 10.4 FL) 9.1 Gran % (42.2 - 75.2 %) 93.1 H Lymphocytes % (20.5 - 51.1 %) 2.6 L Monocytes % (1.7 - 9.3 %) 4.3 Eosinophils % (0 - 5 %) 0 Basophils % (0.0 - 2.0 %) 0 L Absolute Granulocytes (1.4 - 6.5 /CUMM) 11.9 H Absolute Lymphocytes (1.2 - 3.4 /CUMM) 0.3 L Absolute Monocytes (0.10 - 0.60 /CUMM) 0.5 Absolute Eosinophils (0.0 - 0.7 /CUMM) 0 Absolute Basophils (0.0 - 0.2 /CUMM) 0 PUBS MCHC (33.0 - 37.0 G/DL) 33.2 08/11 1720 Chemistry Sodium (137 - 145 mmol/L) 133 L Potassium (3.5 - 5.1 mmol/L) 3.7 Chloride (98 - 107 mmol/L) 96 L Carbon Dioxide (22 - 30 mmol/L) 27 Anion Gap (5 - 16) 10 BUN (9 - 20 mg/dL) 22 H Creatinine (0.7 - 1.2 mg/dL) 0.8 Estimated GFR (>60 ml/min) > 60 BUN/Creatinine Ratio (7 - 25 %) 27.5 H Glucose (65 - 99 mg/dL) 174 H Hemoglobin A1c (4.2 - 5.8 %) Pending Lactic Acid (0.7 - 2.1 mmol/L) 1.3 Calcium (8.4 - 10.2 mg/dL) 9.0 Total Bilirubin (0.2 - 1.3 mg/dL) 0.9 AST (17 - 59 U/L) 28 ALT (21 - 72 U/L) 48 Alkaline Phosphatase (< 127 U/L) 71 C-Reactive Prot, Quant (<1.0 mg/dL) 1.6 H Total Protein (6.3 - 8.2 g/dL) 6.6 Albumin (3.5 - 5.0 g/dL) 3.8 Globulin (1.9 - 4.2 gm/dL) 2.8 Albumin/Globulin Ratio (1.1 - 2.2 %) 1.4 Hematology CBC w Diff MAN DIFF ORDERED WBC (4.8 - 10.8 /CUMM) 14.5 H RBC (4.70 - 6.10 /CUMM) 4.79 Hgb (14.0 - 18.0 G/DL) 14.0 Hct (42 - 52 %) 42.2 MCV (80.0 - 94.0 FL) 88.1 MCH (27.0 - 31.0 PG) 29.3 RDW (11.5 - 14.5 %) 13.8 Plt Count (130 - 400 /CUMM) 164 MPV (7.4 - 10.4 FL) 8.0 Gran % (42.2 - 75.2 %) 93.8 H Lymphocytes % (20.5 - 51.1 %) 1.3 L Monocytes % (1.7 - 9.3 %) 4.9 Eosinophils % (0 - 5 %) 0 Basophils % (0.0 - 2.0 %) 0 L Absolute Granulocytes (1.4 - 6.5 /CUMM) 13.6 H Segmented Neutrophils (42.2 - 75.2 %) 92 H Band Neutrophils (0.0 - 5.0 %) 5 Absolute Lymphocytes (1.2 - 3.4 /CUMM) 0.2 L Lymphocytes (20.5 - 51.1 %) 1 L Monocytes (1.7 - 9.3 %) 2 Absolute Monocytes (0.10 - 0.60 /CUMM) 0.7 H Absolute Eosinophils (0.0 - 0.7 /CUMM) 0 Absolute Basophils (0.0 - 0.2 /CUMM) 0 Platelet Estimate (ADEQUATE) ADEQUATE Normocytic RBCs VERIFIED Normochromic RBCs VERIFIED PUBS MCHC (33.0 - 37.0 G/DL) 33.3 ESR Westergren (0 - 10 MM) 8 Microbiology Date/Time Procedure - Status Source Growth 08/11 180 Blood Culture - RES BLOOD GRAM POSITIVE COCCI 08/11 180 Blood Culture - RES BLOOD GRAM POSITIVE COCCI 08/11 1654 Blood Culture - CAN BLOOD Cancelled: Quantity not sufficient for Aerobic blood culture bottle. Vital Signs Date Time Temp Pulse Resp B/P B/P Pulse O2 O2 Flow FiO2 Mean Ox Delivery Rate 08/12 0844 99.1 08/12 0842 99.1 68 20 120/60 08/12 0800 93 Room Air 08/12 0730 100.5 08/12 0713 100.5 78 20 110/59 92 08/12 0048 85 92 08/11 2245 78 92 08/11 2200 Room Air 08/11 2105 98.3 91 18 142/82 92 Room Air 08/11 1647 99.4 94 20 156/70 96 Room Air Intake & Output 08/12 1600 08/12 0800 08/12 0000 Intake Total 350 4120 Output Total 100 Balance 350 4020 Intake, IV 100 4000 Intake, Oral 250 120 Output, Urine 100 Patient 260 lb Weight Weight Reported by Patient Measurement Method On examination Patient is awake alert oriented 3 in no acute distress Neck is supple JVD is not raised The membrane is moist and pink S1-S2 is normal Lungs shows air entry equal bilaterally with some expiratory wheezing present Abdomen is soft globular nontender no masses no organomegaly bowel sounds are present next 70 shows 1+ bilateral lateral pedal edema Right oximetry shows erythema in the middle of the leg and dorsum of the leg with some chronic skin changes erythema extends from the dorsum of the ankle right to the all over the middle of the leg it up to the patella. Dawsonposterior tibial 1+ bilateral bilateral peripheral neuropathy. Assessment Sepsis secondary to cellulitis of the right lower leg. Patient is Positive blood cultures with the gram-positive cocci in clusters and chains currently on IV Unasyn 3 g IV every 6 hours elevation of the leg with skin care get infectious disease consult. His lipid diabetes currently on metformin thousand milligrams once a day Cover with sliding scale of the sugars elevated about 300 COPD continue with the nebulizer treatment DuoNeb 1 unit dose 3 times a day. Objective sleep apnea uses the CPAP at night. Case was discussed with the house staff at the patient. Patient currently understood his medical issues and agreed with the treatment.
--- NOTE | 2016-08-12 10:39 | Admission Certification ---
Admission Certification Certification Statement - As attending physician, I certify that at the time of - admission, based on clinical presentation, severity of - symptoms, need for further diagnostic testing and - therapeutic interventions, and risk of adverse outcomes - without in-hospital treatment, in my clinical assessment, - this patient requires an acute hospital stay for a minimum - of two nights or longer. I have also considered psychsocial - factors such as support system, advanced age, financial - issues, cognitive issues, and failed out-patient treatments, - past re-admission history, safety of patient, and lack of - compliance as applicable. Specific rationale supporting this admission is: Sepsis secondary to cellulitis of the right lower extremity. Blood culture positive with gram-positive cocci in clusters and chains Current IV Unasyn 3 g to 6 hours.
--- NOTE | 2016-08-12 13:45 | Cons- Podiatry ---
General Information and HPI Consulting Request Date of Consult: 08/12/16 Requested By: LIO WALL MD History of Present Illness: Fredy is a 75-year-old diabetic male status post I&D of foreign body and closure of open wound right foot approximately 4 weeks ago. The patient presented to the ER after complaining of a fever documented at 101.8 and a feeling of unsteadiness, which precipitated a fall. The patient was transported to the emergency department via ambulance, during which he had 2 episodes of vomiting. Allergies/Medications Allergies: Coded Allergies: adhesive (BLISTERS 08/11/16) Home Med List: Albuterol Sulfate (Ventolin Hfa) 90 MCG HFA.AER.AD 2 PUF INH Q4-6 PRN PRN COPD (Reported) Aspirin (Ecotrin*) 81 MG TABLET.DR 1 TAB PO QOD PROPHO (Reported) Fluoxetine HCl 20 MG CAPSULE 1 CAP PO DAILY DEPRESSION (Reported) Losartan Potassium 50 MG TABLET 1 TAB PO DAILY HTN (Reported) Metformin HCl (Metformin HCl ER) 1,000 MG TAB.ER.24 1 TAB PO DAILY DM II ( Reported) Multivit-Min/FA/Lycopen/Lutein (Centrum Silver Men Tablet) 300 MCG-600 MCG-300 MCG TABLET 1 TAB PO DAILY SUPPLEMENT (Reported) Simvastatin (Simvastatin*) 40 MG TABLET 1 TAB PO QPM CHOLESTEROL (Reported) Tamsulosin HCl (Flomax) 0.4 MG CAP.ER.24H 1 CAP PO DAILY BPH (Reported) Trazodone HCl 50 MG TABLET 0.5 TAB PO QPM SLEEP (Reported) Umeclidinium [place] (Incruse Ellipta) 62.5 MCG/ACTUATION BLST.W.DEV 1 PUFF INH DAILY COPD (Reported) Past History Medical History Neurological: NONE EENT: NONE Cardiovascular: hypertension Respiratory: COPD, obstructive sleep apnea Gastrointestinal: hiatal hernia Hepatic: NONE Renal: benign prost hyperplasia Musculoskeletal: NONE Psychiatric: depression Endocrine: diabetes Blood Disorders: NONE Cancer(s): NONE 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 Home Who Do You Live With? spouse Services at Home: None Primary Language: Tajik Smoking Status: Former Smoker (30 Pack Years, Quit 20 Yrs Ago) Functional Ability ADLs Independent: dressing, eating, toileting, bathing. Ambulation: walking stick IADLs Independent: shopping, housework, finances, food prep, telephone, transportation , medication admin. Review of Systems Review of Systems: Unremarkable except for that noted in history of present illness Exam & Diagnostic Data Vital Signs and I&O Vital Signs Date Time Temp Pulse Resp B/P B/P Pulse O2 O2 Flow FiO2 Mean Ox Delivery Rate 08/12 0844 99.1 08/12 0842 99.1 68 20 120/60 08/12 0800 93 Room Air 08/12 0730 100.5 08/12 0713 100.5 78 20 110/59 92 08/12 0048 85 92 08/11 2245 78 92 08/11 2200 Room Air 08/11 2105 98.3 91 18 142/82 92 Room Air 08/11 1647 99.4 94 20 156/70 96 Room Air Intake & Output 08/12 1600 /11 0800 11 0000 / 1600 08/11 0800 08/11 0000 Intake Total 350 4120 Output Total 100 Balance 350 4020 Intake, IV 100 4000 Intake, Oral 250 120 Output, Urine 100 Patient 260 lb Weight Weight Reported by Patient Measurement Method Physical Exam: Edema and cellulitis involving the right lower extremity extending from just distal to the knee to the ankle. A wound dehiscence is noted plantarly and the closure site with a Hudson grade 2 ulceration measuring 2 cm x 0.5 cm. No probing or undermining identified. Minimal serous drainage noted. Superficial slough noted overlying a mixed granular fibrotic wound bed. Assessment/Plan Assessment/Plan Right lower extremity cellulitis and nonhealing ulcer plantar right foot. Continue elevation and IV antibiotics per medicine recommendations. Consider an MRI tomorrow to rule out any occult infectious process. Daily Xeroform and a dry sterile dressing. Consult Acknowledgment - Thank you for your consult request. Attending MD Review Statement Attending Statement Attending MD Statement: examined this patient
[2016-08-12 15:59] VITALS: BP 120/62
--- NOTE | 2016-08-12 18:00 | RADIOLOGY REPORT ---
EXAMINATION: XR KNEE, RIGHT CLINICAL INFORMATION: Right knee pain following fall. COMPARISON: None. TECHNIQUE: AP, lateral and bilateral oblique views of the right knee. FINDINGS: Multiple views of the right knee demonstrates moderate prepatellar soft tissue swelling. No visible fracture or dislocation of the right knee is identified. Vascular calcifications are noted. There is no significant knee joint effusion. IMPRESSION: No visible fracture or dislocation of the right knee. No significant knee joint effusion. Moderate prepatellar soft tissue swelling.
[2016-08-12 22:51] VITALS: BP 120/70
--- NOTE | 2016-08-13 06:37 | PN- Housestaff ---
Subjective Follow-up For: RLE cellulitis Right knee pain Bacteremia Subjective: Patient seen and examined this morning. Resting comfortably in bed with no acute complaints. Persistent pain in RLE but under control, currently at 07/11. Pain is wost in the right knee. He denies any fever, chills, chest discomfort, palpitations, dyspnea, abdominal pain, nausea, vomiting, headache. No events reported overnight. Review of Systems Constitutional: Reports: see HPI. Objective Last 24 Hrs of Vital Signs/I&O Vital Signs Date Time Temp Pulse Resp B/P B/P Pulse O2 O2 Flow FiO2 Mean Ox Delivery Rate 08/13 0853 68 128/78 08/13 0800 94 Room Air 08/13 0800 20 94 Room Air 08/13 0711 99.6 76 20 138/82 92 Nasal 3.0L Cannula 08/13 0000 CPAP 08/12 2251 97.1 67 20 120/70 95 Room Air 08/12 2207 61 94 08/12 1559 98.7 65 20 120/62 92 Intake & Output 08/13 1600 08/13 0800 08/13 0000 Intake Total 490 550 Output Total 400 500 Balance 90 50 Intake, IV 250 Intake, Oral 240 550 Number 0 Bowel Movements Output, Urine 400 500 Physical Exam General Appearance: Alert, Oriented X3, Cooperative, No Acute Distress Other Physical Findings: Skin Redness in RLE as described below Skin Temp/Moisture Exam: Warm/Dry Sepsis Skin Exam (color): Normal for Ethnicity HEENT Atraumatic, Mucous Membr. moist/pink Neck Supple, No JVD Cardiovascular Regular Rate, Normal S1, Normal S2 Lungs Clear to Auscultation Abdomen Soft, No Tenderness, Positive Bowel Sounds, Obese Extremities No Clubbing, No Cyanosis, Right Lower Extremity with Erythema Extending from Ankle to Knee and 2+ Pitting Edema, Left Lower Extremity with 1+ Pitting Edema Current Medications: Current Medications Sig/Yenifer Start time Last Medication Dose Route Stop Time Status Admin Acetaminophen 650 MG Q6P PRN 08/11 2115 AC 08/12 PO 0730 Albuterol Sulfate 2 PUF Q4-6 PRN PRN 08/11 2100 AC INH Ampicillin Sodium/ 3,000 MG Q6 08/11 2359 AC 08/13 Sulbactam Sodium IV 0519 Sodium Chloride 100 ML Aspirin Buffered 81 MG DAILY 08/12 1000 AC 08/13 PO 0853 Atorvastatin Calcium 20 MG 1700 08/12 1700 AC 08/12 PO 1722 Enoxaparin Sodium 40 MG DAILY 08/12 1000 AC 08/13 SC 0853 Fluoxetine HCl 20 MG DAILY 08/12 1000 AC 08/13 PO 0853 Ibuprofen 600 MG .STK-MED ONE 08/12 1222 DC PO 08/12 1223 Ibuprofen 600 MG Q6P PRN 08/11 2115 AC 08/12 PO 1227 Insulin Aspart 0 TIDAC 08/12 0800 AC 08/12 SC 1722 Losartan Potassium 50 MG DAILY 08/12 1000 AC 08/13 PO 0853 Morphine Sulfate 2 MG Q6-PRN PRN 08/11 2114 AC IV Tamsulosin HCl 0.4 MG 2200 08/12 2200 AC 08/12 PO 2145 Tiotropium [place] 1 PUF DAILY 08/12 1000 AC 08/13 INH 0853 Trazodone HCl 25 MG QPM 08/11 2200 AC 08/12 PO 2145 Last 24 Hrs of Lab/Faheem Results Last 24 Hrs of Labs/Mics: Laboratory Tests 08/13/16 0607: CBC w Diff MAN DIFF ORDERED, RBC 4.39 L, MCV 88.0, MCH 29.2, RDW 14.2, MPV 9.4, Gran % 87.9 H, Lymphocytes % 4.6 L, Monocytes % 6.9, Eosinophils % 0.5, Basophils % 0.1, Absolute Granulocytes 7.7 H, Segmented Neutrophils 81 H, Band Neutrophils 12 H, Absolute Lymphocytes 0.4 L, Lymphocytes 4 L, Monocytes 2, Absolute Monocytes 0.6, Eosinophils 1, Absolute Eosinophils 0, Absolute Basophils 0, Platelet Estimate DECREASED, Normocytic RBCs VERIFIED, Normochromic RBCs VERIFIED, Basophilic Stippling RARE, PUBS MCHC 33.2 Assessment/Plan Assessment: Mr. Sol is a 75 y/o M with PMHx of non-insulin dependent T2DM, TORI on CPAP and recent I&D and flap closure of complicated laceration of right foot with retained foreign body (07/17) who is admitted for sepsis secondary to right leg cellulitis. #Sepsis 2/2 right leg cellulitis and bacteremia: Presented with fever, chills and right leg erythema. Had fever with temperature of 101.8 at home but afebrile here. WBC count 14.5 with 5% bands on admission. Otherwise hemodynamically stable with lactic acid of 1.3. Recent I&D and flap closure of complicated laceration of right foot with retained foreign body (07/17 ) followed by 3 weeks of doxycycline. XR R foot/tibia-fibula with no evidence of osteomyelitis. S/p 1 dose of vancomycin and ceftazidime in the ED. * Cont Unasyn 3g IV Q6H for now * Check BCx - growing beta group A strep in both bottles * ID consulted, appreciate recs * Wound care consulted, appreciate recs * MRI to r/o osteomyelitis # Knee pain Patient endorses excruciating tenderness and effusion in the right knee. Knee xray showed no fracture/dislocation or joint effusion. Moderate prepatellar soft tissue swelling. * Arthrocentesis to r/o septic arthritis * Adequate pain control #Non-insulin dependent T2DM: Takes metformin ER 1000 mg PO daily. * Hold oral hypoglycemic agents while inpatient. * Accu-checks and low-dose sliding scale Novolog TIDAC. * HbA1c pending #HTN: * Continue ffrre-bv-zlufmlljn losartan 50 mg PO daily. #HLD: Takes simvastatin 40 mg PO daily and daily low-dose aspirin. * Atorvastatin 20 mg PO daily while inpatient. * Continue gmvpp-yi-mzqmgttky aspirin 81 mg PO daily. #COPD: Not on home oxygen. Currently not in exacerbation. Satting well on room air. * Continue vvery-ek-nohmhbmnw Incruse Ellipta 62.5 mg 1 puff daily and albuterol inhaler PRN. #TORI: * Continue nocturnal CPAP. #BPH: * Continue tamsulosin 0.4 mg PO daily. #Depression: * Continue xnzwc-vk-idyygrsuj fluoxetine 20 mg PO daily. #Insomnia: * Continue hjndz-oc-cewtkhntg trazodone 25 mg PO daily. Diet: Consistent Carbohydrate 3 DVT PPx: Lovenox and ALPs CODE: FULL Problem List: 1. Insomnia 2. Depression 3. BPH (benign prostatic hyperplasia) 4. TORI on CPAP 5. COPD (chronic obstructive pulmonary disease) 6. Cellulitis of right lower extremity 7. HTN (hypertension) 8. HLD (hyperlipidemia) 9. Non-insulin dependent type 2 diabetes mellitus 10. Sepsis Pain Ratin Pain Location: RLE Pain Goal: Pain 4 or less Pain Plan: Mild path Tomorrow's Labs & Rationales: CBC
[2016-08-13 07:11] VITALS: BP 138/82
[2016-08-13 08:36] LABS: ABSOLUTE BASOPHIL COUNT 0 /CUMM (0.0-0.2); ABSOLUTE EOSINOPHIL COUNT 0 /CUMM (0.0-0.7); ABSOLUTE GRANULOCYTE CT 7.7 /CUMM (1.4-6.5); ABSOLUTE LYMPH COUNT 0.4 /CUMM (1.2-3.4); ABSOLUTE MONOCYTE COUNT 0.6 /CUMM (0.10-0.60); BASOPHIL % 0.1 % (0.0-2.0); EOSINOPHIL % 0.5 % (0-5); GRANULOCYTE % 87.9 % (42.2-75.2); HEMATOCRIT 38.7 % (42-52); MEAN CORPUSCULAR HGB 29.2 PG (27.0-31.0); MEAN CORPUSCULAR HGB CONC 33.2 G/DL (33.0-37.0); MEAN PLATELET VOLUME 9.4 FL (7.4-10.4); PLATELET COUNT 113 /CUMM (130-400); RBC DISTRIBUTION WIDTH 14.2 % (11.5-14.5); RED BLOOD CELL CT 4.39 /CUMM (4.70-6.10); WHITE BLOOD CELL COUNT 8.8 /CUMM (4.8-10.8)
--- NOTE | 2016-08-13 09:40 | PN- Att Addend ---
Attending Addendum Attending Brief Note Patient reports excruciating right knee pain. General Appearance: Alert, No Acute Distress Skin: Cellulitis right knee and leg Cardiovascular: Regular Rate, Normal S1, Normal S2, No Murmurs Lungs: Clear to Auscultation, Normal Air Movement Abdomen: Normal Bowel Sounds, Soft, No Tenderness Neurological: Normal Speech, Strength at 5/5 X4 Ext, Cranial Nerves 3-12 NL, Reflexes 2+ Extremities: Cellulitis right leg extending to right knee with tenderness and effusion right knee Assessment 75-year-old with history of diabetes, sleep apnea status post recent glass injury right foot with surgical extraction for Dr. Marr placed on doxycycline for 3 weeks, recently discontinued presented with fever and right leg erythema. He complains of difficulty to bear weight on his right knee resulting in fall injuring his right leg and knee. He now has blood culture positive for gram-positive cocci in chains. He is currently on Unasyn. Right knee appears swollen and tender. He might need an arthrocentesis of his right knee as well to rule out septic arthritis. Currently his blood sugars are well controlled. Plan Arthrocentesis right knee Continue Unasyn Follow blood cultures ID evaluation Continue insulin sliding scale Continue other home medication check hemoglobin A1c Current Medications Sig/Yenifer Start time Last Medication Dose Route Stop Time Status Admin Acetaminophen 650 MG Q6P PRN 08/11 2114 AC 08/12 PO 0730 Albuterol Sulfate 2 PUF Q4-6 PRN PRN 08/11 2100 AC INH Ampicillin Sodium/ 3,000 MG Q6 08/11 2359 AC 08/13 Sulbactam Sodium IV 0519 Sodium Chloride 100 ML Aspirin Buffered 81 MG DAILY 08/12 1000 AC 08/13 PO 0853 Atorvastatin Calcium 20 MG 1700 08/12 1700 AC 08/12 PO 1722 Enoxaparin Sodium 40 MG DAILY 08/12 1000 AC 08/13 SC 0853 Fluoxetine HCl 20 MG DAILY 08/12 1000 AC 08/13 PO 0853 Ibuprofen 600 MG .STK-MED ONE 08/12 1222 DC PO 08/12 1223 Ibuprofen 600 MG Q6P PRN 08/11 2114 AC 08/12 PO 1227 Insulin Aspart 0 TIDAC 08/12 0800 AC 08/12 SC 1722 Losartan Potassium 50 MG DAILY 08/12 1000 AC 08/13 PO 0853 Morphine Sulfate 2 MG Q6-PRN PRN 08/11 2114 AC IV Tamsulosin HCl 0.4 MG 0 08/12 2199 AC 08/12 PO 2145 Tamsulosin HCl 0.4 MG DAILY 08/12 1000 DC PO Tiotropium [place] 1 PUF DAILY 08/12 1000 AC 08/13 INH 0853 Trazodone HCl 25 MG QPM 08/11 2199 AC 08/12 PO 2145 Laboratory Tests 08/13 606 Hematology CBC w Diff Pending WBC Pending RBC Pending Hgb Pending Hct Pending MCV Pending MCH Pending RDW Pending Plt Count Pending MPV Pending Gran % Pending Lymphocytes % Pending Monocytes % Pending Eosinophils % Pending Basophils % Pending Absolute Granulocytes Pending Absolute Lymphocytes Pending Absolute Monocytes Pending Absolute Eosinophils Pending Absolute Basophils Pending PUBS MCHC Pending Vital Signs Date Time Temp Pulse Resp B/P B/P Pulse O2 O2 Flow FiO2 Mean Ox Delivery Rate 08/13 0853 68 128/78 08/13 0800 20 94 Room Air 08/13 0711 99.6 76 20 138/82 92 Nasal 3.0L Cannula 08/13 0000 CPAP 08/12 2251 97.1 67 20 120/70 95 Room Air 08/12 2207 61 94 08/12 1559 98.7 65 20 120/62 92
--- NOTE | 2016-08-13 13:41 | Cons- Infect Disease ---
General Information and HPI Consulting Request Date of Consult: 08/13/16 Requested By: LIO WALL MD Reason for Consult: Positive blood cultures for gram-positive cocci in chains Source of Information: patient, family, old records Exam Limitations: poor historian History of Present Illness: This is a 75-year-old man with a history of diabetes, obstructive sleep apnea, on CPAP, status post a puncture wound to the left foot 4 months prior to admission resulting in pain and swelling of the left foot, status post an unsuccessful attempt to remove a suspected foreign body in the office, taken to the OR 4 weeks prior to admission for an I&D of the left foot with removal of a retained foreign body and with closure of the wound, treated with Doxycycline for the next 3 weeks, admitted on August 11 after presenting to the emergency room following a fall at home with a fever to 101.8 associated with chills, weakness, nausea and vomiting and erythema of the right leg. On admission he was afebrile. Laboratory data revealed a white blood cell count of 15,000, BUN/ creatinine 22 and 0.8, with normal liver enzymes, hemoglobin A1c 6.7. X-ray of the right foot revealed no osteomyelitis. X-ray of the right tibia/fibula was also negative. He was given Vancomycin and Ceftazidime in the emergency room and was then placed on Unasyn. He had a low-grade fever to 100.5 on August 12 but has been afebrile since and his white blood cell count has normalized. He does note erythema extending up the right leg to the knee and notes discomfort in this area. An x-ray of the right knee on August 12 revealed moderate prepatellar soft tissue swelling with no joint effusion. Allergies/Medications Allergies: Coded Allergies: adhesive (BLISTERS 08/11/16) Home Med List: Albuterol Sulfate (Ventolin Hfa) 90 MCG HFA.AER.AD 2 PUF INH Q4-6 PRN PRN COPD (Reported) Aspirin (Ecotrin*) 81 MG TABLET.DR 1 TAB PO QOD PROPHO (Reported) Fluoxetine HCl 20 MG CAPSULE 1 CAP PO DAILY DEPRESSION (Reported) Losartan Potassium 50 MG TABLET 1 TAB PO DAILY HTN (Reported) Metformin HCl (Metformin HCl ER) 1,000 MG TAB.ER.24 1 TAB PO DAILY DM II ( Reported) Multivit-Min/FA/Lycopen/Lutein (Centrum Silver Men Tablet) 300 MCG-600 MCG-300 MCG TABLET 1 TAB PO DAILY SUPPLEMENT (Reported) Simvastatin (Simvastatin*) 40 MG TABLET 1 TAB PO QPM CHOLESTEROL (Reported) Tamsulosin HCl (Flomax) 0.4 MG CAP.ER.24H 1 CAP PO DAILY BPH (Reported) Trazodone HCl 50 MG TABLET 0.5 TAB PO QPM SLEEP (Reported) Umeclidinium [place] (Incruse Ellipta) 62.5 MCG/ACTUATION BLST.W.DEV 1 PUFF INH DAILY COPD (Reported) Past History Travel History Traveled to [place] past 21 day No Medical History Neurological: NONE EENT: NONE Cardiovascular: hypertension Respiratory: COPD, obstructive sleep apnea Gastrointestinal: hiatal hernia Hepatic: NONE Renal: benign prost hyperplasia Musculoskeletal: NONE Psychiatric: depression Endocrine: diabetes Blood Disorders: NONE Cancer(s): NONE 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 Home Who Do You Live With? spouse Services at Home: None Primary Language: Mozambican Smoking Status: Former Smoker (30 Pack Years, Quit 20 Yrs Ago) Functional Ability ADLs Independent: dressing, eating, toileting, bathing. Ambulation: walking stick IADLs Independent: shopping, housework, finances, food prep, telephone, transportation , medication admin. Review of Systems Review of Systems Cardiovascular: Reports: peripheral edema (right leg). All Other Systems: Reviewed and Negative Exam & Diagnostic Data Last 24 Hrs of Vital Signs/I&O Vital Signs Date Time Temp Pulse Resp B/P B/P Pulse O2 O2 Flow FiO2 Mean Ox Delivery Rate 08/13 0853 68 128/78 08/13 0800 94 Room Air 08/13 0800 20 94 Room Air 08/13 0711 99.6 76 20 138/82 92 Nasal 3.0L Cannula 08/13 0000 CPAP 08/12 2251 97.1 67 20 120/70 95 Room Air 08/12 2207 61 94 08/12 1559 98.7 65 20 120/62 92 Intake & Output 08/13 1600 08/13 0800 08/13 0000 Intake Total 490 550 Output Total 400 500 Balance 90 50 Intake, IV 250 Intake, Oral 240 550 Number 0 Bowel Movements Output, Urine 400 500 Physical Exam Other Physical Findings: He is awake and alert in no acute distress. MAXIMUM TEMPERATURE 100.5. Skin reveals no rash. HEENT exam poor dentition. Neck is supple with no adenopathy. Lungs are clear. Heart regular rhythm with no murmur. Abdomen is obese, soft, nontender with positive bowel sounds. Back no CVA tenderness. Extremities right foot swelling with mild erythema laterally, with a plantar wound, with drainage on the dressing, minimally tender to palpation; right leg erythema extending towards the knee, with mild prepatellar swelling, with normal range of motion of the right knee; right leg swelling compared to the left leg. Neuro is without focality. Last 24 Hours of Lab Results: Laboratory Tests 08/13 0607 Hematology CBC w Diff MAN DIFF ORDERED WBC (4.8 - 10.8 /CUMM) 8.8 RBC (4.70 - 6.10 /CUMM) 4.39 L Hgb (14.0 - 18.0 G/DL) 12.8 L Hct (42 - 52 %) 38.7 L MCV (80.0 - 94.0 FL) 88.0 MCH (27.0 - 31.0 PG) 29.2 RDW (11.5 - 14.5 %) 14.2 Plt Count (130 - 400 /CUMM) 113 L MPV (7.4 - 10.4 FL) 9.4 Gran % (42.2 - 75.2 %) 87.9 H Lymphocytes % (20.5 - 51.1 %) 4.6 L Monocytes % (1.7 - 9.3 %) 6.9 Eosinophils % (0 - 5 %) 0.5 Basophils % (0.0 - 2.0 %) 0.1 Absolute Granulocytes (1.4 - 6.5 /CUMM) 7.7 H Segmented Neutrophils (42.2 - 75.2 %) 81 H Band Neutrophils (0.0 - 5.0 %) 12 H Absolute Lymphocytes (1.2 - 3.4 /CUMM) 0.4 L Lymphocytes (20.5 - 51.1 %) 4 L Monocytes (1.7 - 9.3 %) 2 Absolute Monocytes (0.10 - 0.60 /CUMM) 0.6 Eosinophils (0 - 5.0 %) 1 Absolute Eosinophils (0.0 - 0.7 /CUMM) 0 Absolute Basophils (0.0 - 0.2 /CUMM) 0 Platelet Estimate (ADEQUATE) DECREASED Normocytic RBCs VERIFIED Normochromic RBCs VERIFIED Basophilic Stippling RARE PUBS MCHC (33.0 - 37.0 G/DL) 33.2 Last 24 Hours of Faheem Results: Blood cultures 2 August 11 positive for Group A strep Diagnostic Data Recent Imaging Findings: X-ray of the right foot August 11 no osteomyelitis. X-ray of the right tibia/fibula August 11 negative X-ray of the right knee August 12 no significant knee effusion; moderate prepatellar soft tissue swelling Assessment/Plan Assessment/Plan Impression: This is a 75-year-old man with diabetes and COPD status post a injury to his right foot 4 months prior to admission, with removal of a foreign body one month prior to admission, with persistent inflammation of the right foot since, admitted on August 11 with the acute onset of fever and chills with right leg erythema and weakness, found initially to be afebrile with a leukocytosis and with blood cultures 2 positive for Group A strep. The source of his sepsis is most likely the right foot and I suspect he has an underlying infection within the soft tissues and, possibly, the bone. He does have evidence of cellulitis and, possibly, a prepatellar bursitis, but I do not suspect a septic joint. He will likely require debridement/drainage of the right foot infection, but can await the MRI of the right foot which was done earlier today. Suggestion: 1. Follow-up MRI of the right foot 2. Podiatry follow-up based on above 3. Continue Unasyn pending above Consult Acknowledgment - Thank you for your consult request.
--- NOTE | 2016-08-13 14:05 | MRI REPORT ---
EXAMINATION: MRI LOWER EXTREMITY WITHOUT CONTRAST, RIGHT. MRI FOOT WITHOUT CONTRAST, RIGHT. CLINICAL INFORMATION: Cellulitis. Evaluate for osteomyelitis. COMPARISON: Radiographs 08/11/2016. TECHNIQUE: MRI of the right lower leg and MRI of the right foot performed without contrast. The patient was reportedly experiencing significant back pain and could not tolerate postcontrast sequences. FINDINGS: There is extensive subcutaneous edema throughout the lower leg and foot without a focal fluid collection. This may represent cellulitis as per the clinical history. There may be a shallow ulcer along the lateral aspect of the 5th MTP joint. Correlate clinically. No underlying abscess. There is no evidence of osteomyelitis. There are degenerative marrow changes at the 1st MTP joint and there is a small degenerative cyst of the 5th metatarsal head. Lzwicxlt-mu-qdrqyf degenerative changes throughout the TMT joints, as well as the junction of the navicular and the cuneiforms and the calcaneocuboid joint. Fatty infiltration of the calf muscles and intrinsic muscles of the foot. IMPRESSION: Diffuse subcutaneous edema which may represent cellulitis as per the clinical history. There is no focal fluid collection to suggest an abscess. Possible shallow ulcer lateral to the 5th MTP joint. No evidence of osteomyelitis. Eafqjoeg-zv-tjhrzn arthritic changes throughout the foot as described.
[2016-08-13 15:35] VITALS: BP 122/82
--- NOTE | 2016-08-13 19:46 | Cons- Orthopedic ---
General Information and HPI Consulting Request Date of Consult: 08/13/16 Requested By: LIO WALL MD Reason for Consult: Right knee cellulitis, concern for septic joint Source of Information: patient, family Exam Limitations: no limitations History of Present Illness: 75yo M with history of DM, HTN/HL, depression, and COPD presented to [facility] on 08/11/2016 with fevers and difficulty with ambulation. Per his , he was not feeling well and complains of chills and poor appetite; he then had a fall at home and was very unsteady on his feet. His temperature at home was 101.8. She called his doctor and he was transferred to [place]. He was afebrile on admission with a Tmax of 100.5 on 08/12/16. He had erythema of the right lower leg and was admitted for cellulitis; initially received Ceftaxidime and Vancomycin. Blood cultures grew strep and he was started on Unasyn. Per patient, he stepped on a broken dish about 3 months ago; retained piece of glass removed by Podiatry ~3wks ago after the foot had become red and swollen. He was on doxycycline which he recently finished. He and his had not noticed redness in the right lower leg two days ago but persistent ulcer of the plantar foot. Allergies/Medications Allergies: Coded Allergies: adhesive (BLISTERS 08/11/16) Home Med List: Albuterol Sulfate (Ventolin Hfa) 90 MCG HFA.AER.AD 2 PUF INH Q4-6 PRN PRN COPD (Reported) Aspirin (Ecotrin*) 81 MG TABLET.DR 1 TAB PO QOD PROPHO (Reported) Fluoxetine HCl 20 MG CAPSULE 1 CAP PO DAILY DEPRESSION (Reported) Losartan Potassium 50 MG TABLET 1 TAB PO DAILY HTN (Reported) Metformin HCl (Metformin HCl ER) 1,000 MG TAB.ER.24 1 TAB PO DAILY DM II ( Reported) Multivit-Min/FA/Lycopen/Lutein (Centrum Silver Men Tablet) 300 MCG-600 MCG-300 MCG TABLET 1 TAB PO DAILY SUPPLEMENT (Reported) Simvastatin (Simvastatin*) 40 MG TABLET 1 TAB PO QPM CHOLESTEROL (Reported) Tamsulosin HCl (Flomax) 0.4 MG CAP.ER.24H 1 CAP PO DAILY BPH (Reported) Trazodone HCl 50 MG TABLET 0.5 TAB PO QPM SLEEP (Reported) Umeclidinium [place] (Incruse Ellipta) 62.5 MCG/ACTUATION BLST.W.DEV 1 PUFF INH DAILY COPD (Reported) Current Medications: Current Medications Sig/Yenifer Start time Last Medication Dose Route Stop Time Status Admin Acetaminophen 650 MG Q6P PRN 08/11 2115 AC 08/12 PO 0730 Albuterol Sulfate 2 PUF Q4-6 PRN PRN 08/11 2100 AC INH Ampicillin Sodium/ 3,000 MG Q6 08/11 2359 AC 08/13 Sulbactam Sodium IV 1814 Sodium Chloride 100 ML Aspirin Buffered 81 MG DAILY 08/12 1000 AC 08/13 PO 0853 Atorvastatin Calcium 20 MG 1700 08/12 1700 AC 08/13 PO 1814 Enoxaparin Sodium 40 MG DAILY 08/12 1000 AC 08/13 SC 0853 Fluoxetine HCl 20 MG DAILY 08/12 1000 AC 08/13 PO 0853 Ibuprofen 600 MG Q6P PRN 08/11 2115 AC 08/12 PO 1227 Insulin Aspart 0 TIDAC 08/12 0800 AC 08/12 SC 1722 Losartan Potassium 50 MG DAILY 08/12 1000 AC 08/13 PO 0853 Morphine Sulfate 2 MG Q6-PRN PRN 08/11 2115 AC IV Patient Medication 1 ED .STK-MED ONE 08/13 1353 DC Teaching ED 08/13 1354 Tamsulosin HCl 0.4 MG 08/12 2200 AC 08/12 PO 2145 Tiotropium [place] 1 PUF DAILY 08/12 1000 AC 08/13 INH 0853 Trazodone HCl 25 MG QPM 08/11 2200 AC 08/12 PO 2145 Past History Medical History Neurological: NONE EENT: NONE Cardiovascular: hypertension Respiratory: COPD, obstructive sleep apnea Gastrointestinal: hiatal hernia Hepatic: NONE Renal: benign prost hyperplasia Musculoskeletal: NONE Psychiatric: depression Endocrine: diabetes Blood Disorders: NONE Cancer(s): NONE 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 Home Who Do You Live With? spouse Services at Home: None Primary Language: Spanish Smoking Status: Former Smoker (30 Pack Years, Quit 20 Yrs Ago) Functional Ability ADLs Independent: dressing, eating, toileting, bathing. Ambulation: walking stick IADLs Independent: shopping, housework, finances, food prep, telephone, transportation , medication admin. Exam & Diagnostic Data Vital Signs and I&O Vital Signs Date Time Temp Pulse Resp B/P B/P Pulse O2 O2 Flow FiO2 Mean Ox Delivery Rate 08/13 1535 97.1 77 18 122/82 95 Room Air 08/13 0853 68 128/78 08/13 0800 94 Room Air 08/13 0800 20 94 Room Air 08/13 0711 99.6 76 20 138/82 92 Nasal 3.0L Cannula 08/13 0000 CPAP 08/12 2251 97.1 67 20 120/70 95 Room Air 08/12 2207 61 94 Intake & Output 08/13 1600 08/13 0800 08/13 0000 08/12 1600 08/12 0800 08/12 0000 Intake Total 900 490 550 775 449 6089 Output Total 650 400 500 100 Balance 250 90 50 288 293 4295 Intake, IV 100 167 547 2633 Intake, Oral 800 240 550 350 250 120 Number 1 0 2 Bowel Movements Output, Urine 650 400 500 100 Patient 260 lb Weight Weight Reported by Patient Measurement Method Physical Exam: Alert, oriented, in not acute distress. Face flushed. RLE: Erythema and warmth of right lower extremity including knee and lower leg to the foot. Edema of right knee without obvious effusion; tender to palpation over parapatellar region, medial and lateral joint lines, and along anterior tibia and calf. Right foot wrapped; dressing clean and dry. No erythema or warmth noted of the distal foot/toes. Redness has extended proximally past the marker line drawn on Saturday; family unsure if redness better or worse as compared to prior. Intact EHL/FHL, ankle DF/PF, knee flexion/extension. Pain with active knee flexion/extension. Mild discomfort with passive knee flexion/extension. Streak of redness extending over medial thigh up to skin of anterior hip, just below hip crease. Patient notes intact sensation to light touch over sural, saphenous, superficial peroneal, deep peroneal, and tibial nerve distributions. Palpable PT pulse; foot warm. Last 24 Hours of Labs: Laboratory Tests 08/13 606 Hematology CBC w Diff MAN DIFF ORDERED WBC (4.8 - 10.8 /CUMM) 8.8 RBC (4.70 - 6.10 /CUMM) 4.39 L Hgb (14.0 - 18.0 G/DL) 12.8 L Hct (42 - 52 %) 38.7 L MCV (80.0 - 94.0 FL) 88.0 MCH (27.0 - 31.0 PG) 29.2 RDW (11.5 - 14.5 %) 14.2 Plt Count (130 - 400 /CUMM) 113 L MPV (7.4 - 10.4 FL) 9.4 Gran % (42.2 - 75.2 %) 87.9 H Lymphocytes % (20.5 - 51.1 %) 4.6 L Monocytes % (1.7 - 9.3 %) 6.9 Eosinophils % (0 - 5 %) 0.5 Basophils % (0.0 - 2.0 %) 0.1 Absolute Granulocytes (1.4 - 6.5 /CUMM) 7.7 H Segmented Neutrophils (42.2 - 75.2 %) 81 H Band Neutrophils (0.0 - 5.0 %) 12 H Absolute Lymphocytes (1.2 - 3.4 /CUMM) 0.4 L Lymphocytes (20.5 - 51.1 %) 4 L Monocytes (1.7 - 9.3 %) 2 Absolute Monocytes (0.10 - 0.60 /CUMM) 0.6 Eosinophils (0 - 5.0 %) 1 Absolute Eosinophils (0.0 - 0.7 /CUMM) 0 Absolute Basophils (0.0 - 0.2 /CUMM) 0 Platelet Estimate (ADEQUATE) DECREASED Normocytic RBCs VERIFIED Normochromic RBCs VERIFIED Basophilic Stippling RARE PUBS MCHC (33.0 - 37.0 G/DL) 33.2 Imaging Results: MRI Tib/Fib: "Diffuse subcutaneous edema which may represent cellulitis as per the clinical history. There is no focal fluid collection to suggest an abscess. Possible shallow ulcer lateral to the 5th MTP joint. No evidence of osteomyelitis. Zxobyilb-xu-elrfes arthritic changes throughout the foot as described." XR right knee: No visible fracture or dislocation of the right knee. No significant knee joint effusion. Moderate prepatellar soft tissue swelling. Assessment/Plan Assessment/Plan 75yo M with DM, HTN, HL, COPD, and depression presents with RLE cellulitis for 2 days. Currently on Unasyn. Cellulitis appears to extend proximal to prior skin all. Pain in the right knee with weight bearing; intact active flexion/ extension of the joint with pain but minimal discomfort with passive ROM. Patient has a history of right total hip arthroplasty 6-8yrs ago by Dr. Lozada. Plan: Continue IV antibiotics for treatment of cellulitis; appreciate ID and podiatry recommendations. Continue elevation of leg and marking of cellulitis; will continue to monitor. If no improvement in right pain, will consider aspiration of knee however his swelling appears to be extra-articular at this time and his is able to move the knee with relatively little pain. Will continue to monitor; patient will be re-evaluated tomorrow morning. Consult Acknowledgment - Thank you for your consult request. Attending MD Review Statement Attending Statement Attending MD Statement: examined this patient, discussed with family, reviewed images
[2016-08-13 22:05] VITALS: BP 130/64
[2016-08-14 06:15] VITALS: BP 146/78
--- NOTE | 2016-08-14 06:17 | PN- Housestaff ---
Subjective Follow-up For: RLE cellulitis Right knee pain Bacteremia Subjective: Patient seen and examined this morning. Resting comfortably in bed with no acute complaints. Reports no changes in his state compared to yesterday. Endorsing persistent knee pain, currently at 08/11. Denies any fever, chills, chest discomfort, palpitations, dyspnea, abdominal pain, nausea, vomiting, headache. No events reported overnight. Review of Systems Constitutional: Reports: see HPI. Objective Last 24 Hrs of Vital Signs/I&O Vital Signs Date Time Temp Pulse Resp B/P B/P Pulse O2 O2 Flow FiO2 Mean Ox Delivery Rate 08/14 0615 98.4 66 16 146/78 95 CPAP 08/14 0014 75 95 08/14 0000 95 CPAP 08/13 2303 68 142/80 08/13 2215 76 95 08/13 2205 98.7 74 20 130/64 90 Room Air 08/13 1600 Room Air 08/13 1535 97.1 77 18 122/82 95 Room Air 08/13 0853 68 128/78 08/13 0800 94 Room Air 08/13 0800 20 94 Room Air Intake & Output 08/14 0800 08/14 0000 08/13 1600 Intake Total 900 Output Total 350 650 Balance -350 250 Intake, IV 100 Intake, Oral 800 Number 1 1 Bowel Movements Output, Urine 350 650 Physical Exam General Appearance: Alert, Oriented X3, Cooperative, No Acute Distress Other Physical Findings: Skin Redness in RLE as described below Skin Temp/Moisture Exam: Warm/Dry Sepsis Skin Exam (color): Normal for Ethnicity HEENT Atraumatic, Mucous Membr. moist/pink Neck Supple, No JVD Cardiovascular Regular Rate, Normal S1, Normal S2 Lungs Clear to Auscultation Abdomen Soft, No Tenderness, Positive Bowel Sounds, Obese Extremities No Clubbing, No Cyanosis, Right Lower Extremity with Erythema Extending from Ankle to Knee and 2+ Pitting Edema, Left Lower Extremity with 1+ Pitting Edema Current Medications: Current Medications Sig/Yenifer Start time Last Medication Dose Route Stop Time Status Admin Acetaminophen 650 MG Q6P PRN 08/11 2114 AC 08/12 PO 0730 Albuterol Sulfate 2 PUF Q4-6 PRN PRN 08/11 2100 AC INH Ampicillin Sodium/ 3,000 MG Q6 08/11 2359 AC 08/14 Sulbactam Sodium IV 0552 Sodium Chloride 100 ML Aspirin Buffered 81 MG DAILY 08/12 1000 AC 08/13 PO 0853 Atorvastatin Calcium 20 MG 1700 08/12 1700 AC 08/13 PO 1814 Enoxaparin Sodium 40 MG DAILY 08/12 1000 AC 08/13 SC 0853 Fluoxetine HCl 20 MG DAILY 08/12 1000 AC 08/13 PO 0853 Ibuprofen 600 MG Q6P PRN 08/11 2115 AC 08/12 PO 1227 Insulin Aspart 0 TIDAC 08/12 0800 AC 08/12 SC 1722 Losartan Potassium 50 MG DAILY 08/12 1000 AC 08/13 PO 0853 Morphine Sulfate 2 MG Q6-PRN PRN 08/11 2115 AC IV Patient Medication 1 ED .STK-MED ONE 08/13 1353 DC Teaching ED 08/13 1354 Tamsulosin HCl 0.4 MG 2200 08/12 2200 AC 08/13 PO 2303 Tiotropium [place] 1 PUF DAILY 08/12 1000 AC 08/13 INH 0853 Trazodone HCl 25 MG QPM 08/11 2200 AC 08/13 PO 2301 Assessment/Plan Assessment: Mr. Sol is a 75 y/o M with PMHx of non-insulin dependent T2DM, TORI on CPAP and recent I&D and flap closure of complicated laceration of right foot with retained foreign body (07/17) who is admitted for sepsis secondary to right leg cellulitis. #Sepsis 2/2 right leg cellulitis and bacteremia: Presented with fever, chills and right leg erythema. Had fever with temperature of 101.8 at home but afebrile here. WBC count 14.5 with 5% bands on admission. Otherwise hemodynamically stable with lactic acid of 1.3. Recent I&D and flap closure of complicated laceration of right foot with retained foreign body (07/17 ) followed by 3 weeks of doxycycline. XR R foot/tibia-fibula with no evidence of osteomyelitis. S/p 1 dose of vancomycin and ceftazidime in the ED. * Cont Unasyn 3g IV Q6H for now * Check BCx - growing beta group A strep in both bottles * ID consulted, appreciate recs * Wound care consulted, appreciate recs * MRI - no evidence of osteomyelitis # Knee pain Patient endorses excruciating tenderness and effusion in the right knee. Knee xray showed no fracture/dislocation or joint effusion. Moderate prepatellar soft tissue swelling. * Ortho consulted for possible arthrocentesis * Adequate pain control #Non-insulin dependent T2DM: Takes metformin ER 1000 mg PO daily. * Hold oral hypoglycemic agents while inpatient. * Accu-checks and low-dose sliding scale Novolog TIDAC. * HbA1c pending #HTN: * Continue udeld-ra-fimzsopdw losartan 50 mg PO daily. #HLD: Takes simvastatin 40 mg PO daily and daily low-dose aspirin. * Atorvastatin 20 mg PO daily while inpatient. * Continue ouuuy-mv-fhozswopf aspirin 81 mg PO daily. #COPD: Not on home oxygen. Currently not in exacerbation. Satting well on room air. * Continue ddxdt-zp-zrbabqvjl Incruse Ellipta 62.5 mg 1 puff daily and albuterol inhaler PRN. #TORI: * Continue nocturnal CPAP. #BPH: * Continue tamsulosin 0.4 mg PO daily. #Depression: * Continue tbdfs-je-tozrjntcz fluoxetine 20 mg PO daily. #Insomnia: * Continue jdfuk-os-gxkjdpyhk trazodone 25 mg PO daily. Diet: Consistent Carbohydrate 3 DVT PPx: Lovenox and ALPs CODE: FULL Problem List: 1. HTN (hypertension) 2. Non-insulin dependent type 2 diabetes mellitus 3. HLD (hyperlipidemia) 4. TORI on CPAP 5. BPH (benign prostatic hyperplasia) 6. Depression 7. Insomnia 8. COPD (chronic obstructive pulmonary disease) Pain Ratin Pain Location: RLE Pain Goal: Pain 4 or less Pain Plan: Mild pathway Tomorrow's Labs & Rationales: CBC - cellulitis
--- NOTE | 2016-08-14 09:53 | PN- Att Addend ---
Attending Addendum Attending Brief Note Patient reports right knee pain. General Appearance: Alert, No Acute Distress Skin: Cellulitis right knee and leg Cardiovascular: Regular Rate, Normal S1, Normal S2, No Murmurs Lungs: Clear to Auscultation, Normal Air Movement Abdomen: Normal Bowel Sounds, Soft, No Tenderness Neurological: Normal Speech, Strength at 5/5 X4 Ext, Cranial Nerves 3-12 NL, Reflexes 2+ Extremities: Cellulitis right leg extending to right knee with tenderness and effusion right knee Assessment 75-year-old with history of diabetes, sleep apnea status post recent glass injury right foot with surgical extraction for Dr. Marr placed on doxycycline for 3 weeks, recently discontinued presented with fever and right leg erythema. He complains of difficulty to bear weight on his right knee resulting in fall injuring his right leg and knee. He now has blood culture positive for beta strep. He is currently on Unasyn. He is being watched by orthopedic for the need of arthrocentesis. Currently his blood sugars are well controlled. Plan Continue Unasyn pending sensitivity Follow blood cultures Follow ID and ortho recommendations Continue insulin sliding scale Continue other home medication Current Medications Sig/Yenifer Start time Last Medication Dose Route Stop Time Status Admin Acetaminophen 650 MG Q6P PRN 08/11 2114 AC 08/12 PO 0730 Albuterol Sulfate 2 PUF Q4-6 PRN PRN 08/11 2100 AC INH Ampicillin Sodium/ 3,000 MG Q6 08/11 2359 AC 08/14 Sulbactam Sodium IV 0552 Sodium Chloride 100 ML Aspirin Buffered 81 MG DAILY 08/12 1000 AC 08/14 PO 0926 Atorvastatin Calcium 20 MG 1700 08/12 1700 AC 08/13 PO 1814 Enoxaparin Sodium 40 MG DAILY 08/12 1000 AC 08/14 SC 0926 Fluoxetine HCl 20 MG DAILY 08/12 1000 AC 08/14 PO 0926 Ibuprofen 600 MG Q6P PRN 08/11 2115 AC 08/12 PO 1227 Insulin Aspart 0 TIDAC 08/12 0800 AC 08/12 SC 1722 Losartan Potassium 50 MG DAILY 08/12 1000 AC 08/14 PO 0926 Morphine Sulfate 2 MG Q6-PRN PRN 08/11 211 AC IV Patient Medication 1 ED .STK-MED ONE 08/13 1353 NE Teaching ED 08/13 1354 Tamsulosin HCl 0.4 MG 2200 08/12 2199 AC 08/13 PO 2303 Tiotropium [place] 1 PUF DAILY 08/12 1000 AC 08/14 INH 0926 Trazodone HCl 25 MG QPM 08/11 2199 AC 08/13 PO 2301 Vital Signs Date Time Temp Pulse Resp B/P B/P Pulse O2 O2 Flow FiO2 Mean Ox Delivery Rate 08/14 925 70 128/80 08/14 0800 20 94 Room Air 08/14 0615 98.4 66 16 146/78 95 CPAP 08/14 0014 75 95 08/14 0000 95 CPAP 08/13 2303 68 142/80 08/13 2215 76 95 08/13 2205 98.7 74 20 130/64 90 Room Air 08/13 1600 Room Air 08/13 1535 97.1 77 18 122/82 95 Room Air
--- NOTE | 2016-08-14 10:52 | PN- Orthopedic ---
Subjective Subjective: Patient seen and examined this morning. Sitting in chair, just finished breakfast. Continued pain in right knee and erythema over RLE. His is at bedside; they are both disappointed about need to go to rehab following discharge from hospital. Patient ambulated this morning with PT and says he was short of breath after a short distance. Objective Vital Signs and I&Os Vital Signs Date Time Temp Pulse Resp B/P B/P Pulse O2 O2 Flow FiO2 Mean Ox Delivery Rate 08/14 0926 70 128/80 08/14 0800 20 94 Room Air 08/14 0615 98.4 66 16 146/78 95 CPAP 08/14 0014 75 95 08/14 0000 95 CPAP 08/13 2303 68 142/80 08/13 2215 76 95 08/13 2205 98.7 74 20 130/64 90 Room Air 08/13 1600 Room Air 08/13 1535 97.1 77 18 122/82 95 Room Air Intake & Output 08/14 1600 08/14 0800 08/14 0000 08/13 1600 08/13 0800 08/13 0000 Intake Total 300 900 490 550 Output Total 250 350 650 400 500 Balance 50 -350 250 90 50 Intake, IV 300 100 250 Intake, Oral 0 800 240 550 Number 0 1 1 0 Bowel Movements Output, Urine 250 350 650 400 500 Physical Exam: Patient sitting in chair with legs elevated, no acute distress. Erythema to right leg extending from medial lower leg to superior anterior knee. Streaks along medial thigh and extending proximal to hip. Improvement in cellulitis over anterior and lateral lower leg and medial and lateral knee, but persistent over anterior knee as compared to prior. Tender to palpation over anterior knee from patellar tendon to suprapatellar region; no significant tenderness over medial and lateral joint lines. Intact active flexion and extension of the knee with pain, ROM 0-~90 deg. Sensation intact to light touch over lower extremity and foot. Foot wrapped, dressing intact without bleeding or drainage. Assessment/Plan Assessment/Plan 75yo M with DM, HTN, and COPD, s/p I&D of right foot for retained foreign body 3wks ago presents with diffuse RLE cellulitis. Currently on Unasyn, blood cultures grew Strep. Cellulitis appears slightly improved from yesterday, however persistent erythema and tenderness over anterior knee. Active knee flexion/extension with pain, but patient was able to participate in examination. Concern for septic pre-patellar bursa vs involvement of joint. Recommend ultrasound of right knee to assess for fluid collection, possible septic bursa, prior to arthrocentesis of bursa vs joint. Contine IV antibiotics per ID recommendations, appreciate their input. Discussed with Dr. David Chavez. Will continue to follow. Attending MD Review Statement Attending Statement Attending MD Statement: examined this patient, discuss w/resident/PA/DIRECTOR FRAUD
--- NOTE | 2016-08-14 11:54 | PN- Infect Dx ---
Subjective Subjective: Afebrile. He notes discomfort in the right knee. Objective Last 24 Hrs of Vital Signs/I&O Vital Signs Date Time Temp Pulse Resp B/P B/P Pulse O2 O2 Flow FiO2 Mean Ox Delivery Rate 08/14 0926 70 128/80 08/14 0800 94 Room Air 08/14 0800 20 94 Room Air 08/14 0615 98.4 66 16 146/78 95 CPAP 08/14 0014 75 95 08/14 0000 95 CPAP 08/13 2303 68 142/80 08/13 2215 76 95 08/13 2205 98.7 74 20 130/64 90 Room Air 08/13 1600 Room Air 08/13 1535 97.1 77 18 122/82 95 Room Air Intake & Output 08/14 1600 08/14 0800 08/14 0000 Intake Total 300 Output Total 250 350 Balance 50 -350 Intake, IV 300 Intake, Oral 0 Number 0 1 Bowel Movements Output, Urine 250 350 Patient 260 lb Weight Physical Exam Other Physical Findings: He appears comfortable in no acute distress Extremities swelling, erythema and tenderness,particularly over the anterior aspect and the suprapatellar area of the right knee, with erythema extending to the right thigh and with a patch of erythema in the right groin; right foot with mild swelling and erythema laterally, with no tenderness on palpation; nearly normal range of motion of the right knee; plantar wound unchanged with no active drainage Results Last 24 Hours of Lab Results: No labs from today Last 24 Hours of Faheem Results: No new cultures Recent Imaging Studies: MRI of the right foot reveals extensive subcutaneous edema throughout the lower leg and foot without a focal fluid collection, with no evidence of osteomyelitis Assessment/Plan Impression: Group A strep sepsis secondary to a right leg cellulitis, most likely secondary to the right foot plantar wound, with the MRI negative for an abscess or osteomyelitis. He does have right knee swelling, which is most likely involving the bursa given his nearly normal range of motion of the right knee. Given the amount of inflammation and tenderness it may be reasonable to drain this and will await ultrasound of the right knee and orthopedic follow-up. Suggestion: 1. Follow-up ultrasound of the right knee 2. Would pursue drainage of the prepatellar bursa based on above 3. Continue Unasyn pending above
[2016-08-14 14:40] VITALS: BP 140/74
--- NOTE | 2016-08-14 15:03 | ULTRASOUND REPORT ---
EXAMINATION: US SUPERFICIAL IMAGING, EXTREMITY CLINICAL INFORMATION: Right knee pain, swelling and erythema. COMPARISON: Radiographs of the knee from 08/12/2016 TECHNIQUE: Real-time sonographic imaging of soft tissues of the anterior knee was performed using a high-resolution linear 12 MHz transducer. Grayscale and limited color Doppler imaging was performed. FINDINGS: Trace amount of fluid is present within the suprapatellar bursa which measures 0.5 cm AP in the anterolateral knee. No evidence of synovial thickening or synovial hyperemia on color Doppler imaging. The prepatellar bursa is distended with fluid and measures up to 0.5 cm AP. There is extensive subcutaneous tissue edema of the anterior knee. No evidence of abscess. IMPRESSION: 1. Prepatellar bursa is distended with fluid, measuring up to 0.5 cm AP, consistent with prepatellar bursitis, and there is edema/cellulitis of surrounding subcutaneous tissues. 2. Trace amount of fluid is present within the suprapatellar bursa of the anterolateral knee. There are no overt sonographic findings to suggest presence of a septic/infected knee joint.
[2016-08-14 21:43] VITALS: BP 134/72
[2016-08-15 05:55] VITALS: BP 128/74
--- NOTE | 2016-08-15 06:13 | PN- Housestaff ---
Subjective Follow-up For: RLE cellulitis Subjective: Patient seen and examined this morning. No events reported overnight. Resting comfortably in chair and eating breakfast. Offers no new complaints. Persistent pain in the RLE including knee and foot but pain is slightly better than yest, currently at 5/10. Denies any fever, chills, chest discomfort, palpitations, dyspnea, abdominal pain, nausea, vomiting, headache. Review of Systems Constitutional: Reports: see HPI. Objective Last 24 Hrs of Vital Signs/I&O Vital Signs Date Time Temp Pulse Resp B/P B/P Pulse O2 O2 Flow FiO2 Mean Ox Delivery Rate 08/15 0555 97.9 67 20 128/74 93 08/15 0045 69 96 08/15 0000 CPAP 08/14 2143 98.5 71 20 134/72 94 08/14 2100 87 95 08/14 1519 Room Air 3.0L 08/14 1512 Room Air 3.0L 08/14 1440 98.2 69 20 140/74 94 Room Air 08/14 0926 70 128/80 08/14 0800 94 Room Air 08/14 0800 20 94 Room Air Intake & Output 08/15 0800 08/15 0000 08/14 1600 Intake Total 540 800 950 Output Total 450 700 Balance 90 800 250 Intake, IV 300 100 Intake, Oral 240 800 850 Number 0 1 Bowel Movements Output, Urine 450 700 Patient 117.934 kg Weight Physical Exam General Appearance: Alert, Oriented X3, Cooperative, No Acute Distress Other Physical Findings: Skin Redness in RLE as described below Skin Temp/Moisture Exam: Warm/Dry Sepsis Skin Exam (color): Normal for Ethnicity HEENT Atraumatic, Mucous Membr. moist/pink Neck Supple, No JVD Cardiovascular Regular Rate, Normal S1, Normal S2 Lungs Clear to Auscultation Abdomen Soft, No Tenderness, Positive Bowel Sounds, Obese Extremities No Clubbing, No Cyanosis, Right Lower Extremity with Erythema Extending from Ankle to Knee and 2+ Pitting Edema, Left Lower Extremity with 1+ Pitting Edema Current Medications: Current Medications Sig/Yenifer Start time Last Medication Dose Route Stop Time Status Admin Acetaminophen 650 MG Q6P PRN 08/115 AC 08/12 PO 0730 Albuterol Sulfate 2 PUF Q4-6 PRN PRN 08/11 2100 AC INH Ampicillin Sodium/ 3,000 MG Q6 06/10 2359 AC 08/15 Sulbactam Sodium IV 0526 Sodium Chloride 100 ML Aspirin Buffered 81 MG DAILY 08/12 1000 AC 08/14 PO 0926 Atorvastatin Calcium 20 MG 1700 08/12 1700 AC 08/14 PO 171 Enoxaparin Sodium 40 MG DAILY 08/12 1000 AC 08/14 SC 0926 Fluoxetine HCl 20 MG DAILY 08/12 1000 AC 08/14 PO 0926 Ibuprofen 600 MG .STK-MED ONE 08/14 1703 DC PO 08/14 170 Ibuprofen 600 MG Q6P PRN 08/11 2114 AC 08/15 PO 0001 Insulin Aspart 0 TIDAC 08/12 0800 AC 08/14 SC 171 Losartan Potassium 50 MG DAILY 08/12 1000 AC 08/14 PO 09 Morphine Sulfate 2 MG Q6-PRN PRN 08/11 2114 AC IV Tamsulosin HCl 0.4 MG 08/12 AC 08/14 PO 2053 Tiotropium [place] 1 PUF DAILY 08/12 1000 AC 08/14 INH 09 Trazodone HCl 25 MG QPM 08/11 2199 AC 08/14 PO 2051 Assessment/Plan Assessment: Mr. Sol is a 75 y/o M with PMHx of non-insulin dependent T2DM, TORI on CPAP and recent I&D and flap closure of complicated laceration of right foot with retained foreign body (07/17) who is admitted for sepsis secondary to right leg cellulitis. #Sepsis 2/2 right leg cellulitis and bacteremia: Presented with fever, chills and right leg erythema. Had fever with temperature of 101.8 at home but afebrile here. WBC count 14.5 with 5% bands on admission. Otherwise hemodynamically stable with lactic acid of 1.3. Recent I&D and flap closure of complicated laceration of right foot with retained foreign body (07/17 ) followed by 3 weeks of doxycycline. XR R foot/tibia-fibula with no evidence of osteomyelitis. S/p 1 dose of vancomycin and ceftazidime in the ED. * Cont Unasyn 3g IV Q6H * Check BCx - growing beta group A strep in both bottles * ID consulted, appreciate recs * Wound care consulted, appreciate recs * MRI - no evidence of osteomyelitis # Knee pain Patient endorses excruciating tenderness and effusion in the right knee. Knee xray showed no fracture/dislocation or joint effusion. Moderate prepatellar soft tissue swelling. Most likely bursitis and cellulitis. * Ortho following for possible arthrocentesis * Adequate pain control * Follow knee U/S - 1. Prepatellar bursa is distended with fluid, measuring up to 0.5 cm AP, consistent with prepatellar bursitis, and there is edema/ cellulitis of surrounding subcutaneous tissues. 2. Trace amount of fluid within the suprapatellar bursa of the anterolateral knee. There are no overt0 findings to suggest septic/infected knee joint. #Non-insulin dependent T2DM: Takes metformin ER 1000 mg PO daily. * Hold oral hypoglycemic agents while inpatient. * Accu-checks and low-dose sliding scale Novolog TIDAC. * HbA1c - 6.8 #HTN: * Continue sypiy-zv-hlyrkhkfc losartan 50 mg PO daily. #HLD: Takes simvastatin 40 mg PO daily and daily low-dose aspirin. * Atorvastatin 20 mg PO daily while inpatient. * Continue mzszk-jb-mopveifwx aspirin 81 mg PO daily. #COPD: Not on home oxygen. Currently not in exacerbation. Satting well on room air. * Continue ffofv-ie-xsdayqjje Incruse Ellipta 62.5 mg 1 puff daily and albuterol inhaler PRN. #TORI: * Continue nocturnal CPAP. #BPH: * Continue tamsulosin 0.4 mg PO daily. #Depression: * Continue tcccd-gq-ecdlupemu fluoxetine 20 mg PO daily. #Insomnia: * Continue sragx-jn-flgrksqsm trazodone 25 mg PO daily. Diet: Consistent Carbohydrate 3 DVT PPx: Lovenox and ALPs CODE: FULL Problem List: 1. Insomnia 2. BPH (benign prostatic hyperplasia) 3. Depression 4. TORI on CPAP 5. COPD (chronic obstructive pulmonary disease) 6. Cellulitis of right lower extremity 7. Sepsis 8. HTN (hypertension) 9. HLD (hyperlipidemia) 10. Non-insulin dependent type 2 diabetes mellitus Pain Ratin Pain Location: RLE Pain Goal: Pain 4 or less Pain Plan: Mild-moderate pathway Tomorrow's Labs & Rationales: CBC - cellulitis
--- NOTE | 2016-08-15 09:59 | PN- Att Addend ---
Attending Addendum Attending Brief Note Patient reports right knee pain. General Appearance: Alert, No Acute Distress Skin: Cellulitis right knee and leg Cardiovascular: Regular Rate, Normal S1, Normal S2, No Murmurs Lungs: Clear to Auscultation, Normal Air Movement Abdomen: Normal Bowel Sounds, Soft, No Tenderness Neurological: Normal Speech, Strength at 5/5 X4 Ext, Cranial Nerves 3-12 NL, Reflexes 2+ Extremities: Cellulitis right leg extending to right knee with tenderness at prepatellar bursa Assessment 75-year-old with history of diabetes, sleep apnea status post recent glass injury right foot with surgical extraction for Dr. Marr placed on doxycycline for 3 weeks, recently discontinued presented with fever and right leg erythema. He complains of difficulty to bear weight on his right knee resulting in fall injuring his right leg and knee. He now has blood culture positive for beta strep A. He is currently on Unasyn. He is being watched by orthopedic for the need of arthrocentesis, he probably has prepatellar bursitis that might need drainage. Currently his blood sugars are well controlled. Plan Continue Unasyn Follow ID and ortho recommendations Continue insulin sliding scale Continue other home medication Discharge plan pending above Current Medications Sig/Yenifer Start time Last Medication Dose Route Stop Time Status Admin Acetaminophen 650 MG Q6P PRN 08/11 2114 AC 08/12 PO 0730 Albuterol Sulfate 2 PUF Q4-6 PRN PRN 08/11 2100 AC INH Ampicillin Sodium/ 3,000 MG Q6 08/11 2359 AC 08/15 Sulbactam Sodium IV 0526 Sodium Chloride 100 ML Aspirin Buffered 81 MG DAILY 08/12 1000 AC 08/15 PO 0904 Atorvastatin Calcium 20 MG 1700 08/12 1700 AC 08/14 PO 1711 Enoxaparin Sodium 40 MG DAILY 08/12 1000 AC 08/15 SC 0904 Fluoxetine HCl 20 MG DAILY 08/12 1000 AC 08/15 PO 0904 Ibuprofen 600 MG .STK-MED ONE 08/14 2356 DC PO 08/14 235 Ibuprofen 600 MG .STK-MED ONE 08/14 1703 DC PO 08/14 1704 Ibuprofen 600 MG Q6P PRN 08/11 2115 AC 08/15 PO 0001 Insulin Aspart 0 TIDAC 08/12 0800 AC 08/14 SC 1711 Losartan Potassium 50 MG DAILY 08/12 1000 AC 08/15 PO 0904 Magnesium Sulfate 1 GM ONCE ONE 08/15 0930 AC Dextrose/Water 100 ML IV 08/15 1329 Morphine Sulfate 2 MG Q6-PRN PRN 08/11 2114 AC IV Tamsulosin HCl 0.4 MG 08/12 AC 08/14 PO 2053 Tiotropium [place] 1 PUF DAILY 08/12 1000 AC 08/15 INH 0904 Trazodone HCl 25 MG QPM 08/11 2199 AC 08/14 PO 2051 Vital Signs Date Time Temp Pulse Resp B/P B/P Pulse O2 O2 Flow FiO2 Mean Ox Delivery Rate 08/15 0904 78 122/78 08/15 0730 20 94 Room Air 08/15 0555 97.9 67 20 128/74 93 08/15 0045 69 96 08/15 0000 CPAP 08/14 2143 98.5 71 20 134/72 94 08/14 2100 87 95 08/14 1519 Room Air 3.0L 08/14 1512 Room Air 3.0L 08/14 1440 98.2 69 20 140/74 94 Room Air
--- NOTE | 2016-08-15 12:12 | PN- Orthopedic ---
Subjective Subjective: Patient seen and examined this morning. Doing well, says he leg is feeling a little bit better today. Ambulated down the funez with physical therapy and worked on right knee ROM with therapist. Denies fevers, chills, malaise. Objective Vital Signs and I&Os Vital Signs Date Time Temp Pulse Resp B/P B/P Pulse O2 O2 Flow FiO2 Mean Ox Delivery Rate 08/15 0904 78 122/78 08/15 0730 20 94 Room Air 08/15 0555 97.9 67 20 128/74 93 08/15 0045 69 96 08/15 0000 CPAP 08/14 2143 98.5 71 20 134/72 94 08/14 2100 87 95 08/14 1519 Room Air 3.0L 08/14 1512 Room Air 3.0L 08/14 1440 98.2 69 20 140/74 94 Room Air Intake & Output 08/15 1600 08/15 0800 08/15 0000 08/14 1600 08/14 0800 08/14 0000 Intake Total 540 800 950 300 Output Total 2 450 700 250 350 Balance -2 90 800 250 50 -350 Intake, IV 300 100 300 Intake, Oral 240 800 850 0 Number 0 1 0 1 Bowel Movements Output, Stool 2 Output, Urine 450 700 250 350 Patient 260 lb Weight Physical Exam: Patient sitting up in chair, at bedside. Right Lower Extremity: Persistent cellulitis over the lower leg extending to suprapatellar region. No cellulitis of foot; wound over lateral plantar aspect of foot clean and dry, no drainage, no redness. Tender to palpation over medial and lateral lower leg, posterior calf, and anterior knee. Minimal tenderness over medial and lateral joint line of right knee and anterior quad. Intact active knee ROM 0-85 deg with anterior knee pain. Intact passive ROM 0- 100 deg with pain at end of flexion. Reports intact sensation to light touch over knee and lower leg. Foot warm, palpable DP pulse. Assessment/Plan Assessment/Plan 75yo M with DM, HTN, and COPD with RLE cellulitis. Was admitted 4 days ago after a fall and difficulty with ambulation. Has been afebrile. Found to have right lower extremity cellulitis and blood cultures grew Grp A strep, currently on Unasyn. Pain in right anterior knee but intact ROM. Ultrasound shows fluid in pre-patellar bursa, possibly secondary to fall on anterior knee, but concern for septic bursitis given persistent erythema. 1. Continue Unasyn, appreciate ID recommendations 2. Recommend rechecking labs, peggy WBC, ESR, CRP. 3. Will reevaluate right knee this evening and consider aspiriation of pre- patellar bursa vs bedside debridement is no improvement in cellulitis of knee and lower leg. Attending MD Review Statement Attending Statement Attending MD Statement: examined this patient, reviewed images
[2016-08-15 14:31] VITALS: BP 130/78
[2016-08-15 14:46] LABS: ABSOLUTE BASOPHIL COUNT 0 /CUMM (0.0-0.2); ABSOLUTE EOSINOPHIL COUNT 0.2 /CUMM (0.0-0.7); ABSOLUTE GRANULOCYTE CT 4.5 /CUMM (1.4-6.5); ABSOLUTE LYMPH COUNT 0.6 /CUMM (1.2-3.4); ABSOLUTE MONOCYTE COUNT 0.5 /CUMM (0.10-0.60); BASOPHIL % 0.5 % (0.0-2.0); EOSINOPHIL % 3.1 % (0-5); GRANULOCYTE % 76.9 % (42.2-75.2); HEMATOCRIT 40.3 % (42-52); MEAN CORPUSCULAR VOLUME 87.9 FL (80.0-94.0); MEAN PLATELET VOLUME 8.4 FL (7.4-10.4); PLATELET COUNT 159 /CUMM (130-400); RBC DISTRIBUTION WIDTH 14.2 % (11.5-14.5); RED BLOOD CELL CT 4.59 /CUMM (4.70-6.10); WHITE BLOOD CELL COUNT 5.8 /CUMM (4.8-10.8)
--- NOTE | 2016-08-15 16:18 | PN- Infect Dx ---
Subjective Subjective: Afebrile. He continues to complain of discomfort in the right knee. Objective Last 24 Hrs of Vital Signs/I&O Vital Signs Date Time Temp Pulse Resp B/P B/P Pulse O2 O2 Flow FiO2 Mean Ox Delivery Rate 08/15 1431 97.9 68 20 130/78 94 Room Air 08/15 0904 78 122/78 08/15 0730 20 94 Room Air 08/15 0555 97.9 67 20 128/74 93 08/15 0045 69 96 08/15 0000 CPAP 08/14 2143 98.5 71 20 134/72 94 08/14 2100 87 95 Intake & Output 08/15 1600 08/15 0800 08/15 0000 Intake Total 1100 540 800 Output Total 702 450 Balance 398 90 800 Intake, IV 200 300 Intake, Oral 900 240 800 Number 1 0 Bowel Movements Output, Stool 2 Output, Urine 700 450 Physical Exam Other Physical Findings: He appears comfortable in no acute distress Extremities right suprapatellar erythema, swelling, tenderness and fluctuance persists, with mild erythema from the ankle to the knee, minimally tender to palpation, with mild swelling and tenderness over the prepatellar bursa; right foot plantar wound clean with no surrounding erythema or tenderness Results Last 24 Hours of Lab Results: Laboratory Tests 08/15 1135 Chemistry C-Reactive Prot, Quant (<1.0 mg/dL) > 9.0 H Hematology CBC w Diff NO MAN DIFF REQ WBC (4.8 - 10.8 /CUMM) 5.8 RBC (4.70 - 6.10 /CUMM) 4.59 L Hgb (14.0 - 18.0 G/DL) 13.3 L Hct (42 - 52 %) 40.3 L MCV (80.0 - 94.0 FL) 87.9 MCH (27.0 - 31.0 PG) 29.0 RDW (11.5 - 14.5 %) 14.2 Plt Count (130 - 400 /CUMM) 159 MPV (7.4 - 10.4 FL) 8.4 Gran % (42.2 - 75.2 %) 76.9 H Lymphocytes % (20.5 - 51.1 %) 11.2 L Monocytes % (1.7 - 9.3 %) 8.3 Eosinophils % (0 - 5 %) 3.1 Basophils % (0.0 - 2.0 %) 0.5 Absolute Granulocytes (1.4 - 6.5 /CUMM) 4.5 Absolute Lymphocytes (1.2 - 3.4 /CUMM) 0.6 L Absolute Monocytes (0.10 - 0.60 /CUMM) 0.5 Absolute Eosinophils (0.0 - 0.7 /CUMM) 0.2 Absolute Basophils (0.0 - 0.2 /CUMM) 0 PUBS MCHC (33.0 - 37.0 G/DL) 33.0 ESR Westergren (0 - 10 MM) 42 H Last 24 Hours of Faheem Results: No recent cultures Recent Imaging Studies: Ultrasound of the right knee reveals a distended prepatellar bursa, with extensive subcutaneous tissue edema of the anterior knee; no overt sonographic findings to suggest a septic joint Assessment/Plan Impression: Persistent inflammation around the right knee, particularly in the suprapatellar area, though the ultrasound reveals more fluid in the prepatellar bursa. He does remain afebrile with white blood cell count normal on Unasyn now Day 4 of treatment for Group A strep sepsis secondary to a right leg cellulitis, but feel that the inflammation has localized above the knee and that he would benefit from drainage of this area. The cellulitis is likely related to the plantar wound on his right foot, but the MRI was negative for an abscess or osteomyelitis. Suggestion: 1. Would pursue drainage of the fluctuant area above the knee 2. Continue Unasyn pending above
--- NOTE | 2016-08-15 20:16 | PN- Orthopedic ---
Subjective Subjective: Patient reevaluated this evening; right knee and lower leg cellulitis unchanged from prior exam. He is currently complaining of medial lower leg pain and anterior knee pain with movement. Plan for bedside aspiration of prepatellar bursa. Patient and his are amenable to this intervention. Objective Vital Signs and I&Os Vital Signs Date Time Temp Pulse Resp B/P B/P Pulse O2 O2 Flow FiO2 Mean Ox Delivery Rate 08/15 1431 97.9 68 20 130/78 94 Room Air 08/15 0904 78 122/78 08/15 0730 20 94 Room Air 08/15 0555 97.9 67 20 128/74 93 08/15 0045 69 96 08/15 0000 CPAP 08/14 2143 98.5 71 20 134/72 94 08/14 2100 87 95 Intake & Output 08/15 1600 08/15 0800 08/15 0000 08/14 1600 08/14 0800 08/14 0000 Intake Total 1100 540 800 950 300 Output Total 702 450 700 250 350 Balance 398 90 800 250 50 -350 Intake, IV 200 300 100 300 Intake, Oral 900 240 800 850 0 Number 1 0 1 0 1 Bowel Movements Output, Stool 2 Output, Urine 700 450 700 250 350 Patient 260 lb Weight Physical Exam: Patient resting in bed, comfortable. Intact flexion/extension of right knee 0-90 deg; pain over anterior knee with movement. Persistent erythema over anterior knee/suprapatellar region and along right medial lower leg. No significant erythema of the foot. Tender to palpation over medial lower leg and anterior knee. Right knee prepped with chloroprep x2. Anterior inferior prepatellar region infiltrated with 3cc of 1% lidocaine using an 18g needle; the needle was then passed into the prepatellar bursa and 10cc of thin, cloudy, blood-tinged yellow fluid was removed. Patient tolerated well. No beto pus, no viscous material encountered. Dry gauze was applied and the knee wrapped with an elastic bandage. Fluid aspirated from the bursa was sent for cell count, crystals, and culture analysis. Assessment/Plan Assessment/Plan 75yo M with persistent RLE cellulitis involving the right anterior knee AND lower extremity despite IV Unasyn. Pre-patellar fluid collection noted on ultrasound; this was aspirated and the fluid sent for analysis. No beto pus encountered to suggest consolidated abscess. Plan to continue IV Unasyn pending additional culture results (Grp A strep initially grew from blood cultures). Compression wrap to right knee for comfort. Continue pain control, mobilization. Attending MD Review Statement Attending Statement Attending MD Statement: examined this patient
[2016-08-15 22:00] VITALS: BP 141/69
--- NOTE | 2016-08-16 06:18 | PN- Housestaff ---
Subjective Follow-up For: RLE cellulitis Subjective: Patient seen and examined this morning. Feeling better with improved ROM at knee s/p arthrocentesis yesterday. Knee pain improved to 4/10. Denies any fever, chills, chest discomfort, palpitations, dyspnea, abdominal pain, nausea, vomiting, headache. No events reported overnight. Review of Systems Constitutional: Reports: see HPI. Objective Last 24 Hrs of Vital Signs/I&O Vital Signs Date Time Temp Pulse Resp B/P B/P Pulse O2 O2 Flow FiO2 Mean Ox Delivery Rate 08/16 0711 97.1 68 20 144/82 95 Nasal 2.0L Cannula 08/15 2219 69 141/79 08/15 2200 98.6 69 20 141/69 95 Room Air 08/15 2142 68 94 08/15 1431 97.9 68 20 130/78 94 Room Air 08/15 0904 78 122/78 Intake & Output 08/16 0800 08/16 0000 08/15 1600 Intake Total 800 1100 Output Total 400 650 702 Balance -400 150 398 Intake, IV 200 Intake, Oral 800 900 Number 1 Bowel Movements Output, Stool 2 Output, Urine 400 650 700 Physical Exam General Appearance: Alert, Oriented X3, Cooperative, No Acute Distress Other Physical Findings: Skin Redness in RLE as described below Skin Temp/Moisture Exam: Warm/Dry Sepsis Skin Exam (color): Normal for Ethnicity HEENT Atraumatic, Mucous Membr. moist/pink Neck Supple, No JVD Cardiovascular Regular Rate, Normal S1, Normal S2 Lungs Clear to Auscultation Abdomen Soft, No Tenderness, Positive Bowel Sounds, Obese Extremities No Clubbing, No Cyanosis, Right Lower Extremity with Erythema Extending from Ankle to Knee and 2+ Pitting Edema, Left Lower Extremity with 1+ Pitting Edema Current Medications: Current Medications Sig/Yenifer Start time Last Medication Dose Route Stop Time Status Admin Acetaminophen 650 MG Q6P PRN 08/11 2115 AC 08/12 PO 0730 Albuterol Sulfate 2 PUF Q4-6 PRN PRN 08/11 2100 AC INH Ampicillin Sodium/ 3,000 MG Q6 08/11 2359 AC 08/16 Sulbactam Sodium IV 0541 Sodium Chloride 100 ML Aspirin Buffered 81 MG DAILY 08/12 1000 AC 08/15 PO 0904 Atorvastatin Calcium 20 MG 1700 08/12 1700 AC 06/14 PO 1705 Enoxaparin Sodium 40 MG DAILY 08/12 1000 AC 08/15 SC 0904 Fluoxetine HCl 20 MG DAILY 08/12 1000 AC 08/15 PO 0904 Ibuprofen 600 MG .STK-MED ONE 08/15 1642 DC PO 08/15 1643 Ibuprofen 600 MG Q6P PRN 08/11 211 AC 08/15 PO 1641 Insulin Aspart 0 TIDAC 08/12 0800 AC 08/15 SC 1705 Losartan Potassium 50 MG DAILY 08/12 1000 AC 08/15 PO 0904 Magnesium Sulfate 1 GM ONCE ONE 08/15 0930 DC 08/15 Dextrose/Water 100 ML IV 08/15 1329 1304 Morphine Sulfate 2 MG Q6-PRN PRN 08/11 211 AC IV Patient Medication 1 ED .STK-MED ONE 08/15 1406 MI Teaching ED 08/15 1407 Tamsulosin HCl 0.4 MG 2200 08/12 2200 AC 08/15 PO 2219 Tiotropium [place] 1 PUF DAILY 08/12 1000 AC 08/15 INH 0904 Trazodone HCl 25 MG QPM 08/11 220 AC 08/15 PO 2219 Last 24 Hrs of Lab/Faheem Results Last 24 Hrs of Labs/Mics: Laboratory Tests 08/15/161999: Lymphocytes 1, % Normal PMNs 96, Misc Hematology Test , Fluid WBC 129389 H, Fld Total RBCs Counted 81667 H 08/15/16 1135: C-Reactive Prot, Quant > 9.0 H, CBC w Diff NO MAN DIFF REQ, RBC 4.59 L, MCV 87.9, MCH 29.0, RDW 14.2, MPV 8.4, Gran % 76.9 H, Lymphocytes % 11.2 L, Monocytes % 8.3, Eosinophils % 3.1, Basophils % 0.5, Absolute Granulocytes 4.5, Absolute Lymphocytes 0.6 L, Absolute Monocytes 0.5, Absolute Eosinophils 0.2, Absolute Basophils 0, PUBS MCHC 33.0, ESR Westergren 42 H Microbiology 08/16 1999 BODY FLUID: Body Fluid Culture - RECD 08/16 1999 BODY FLUID: Gram Stain - RECD Assessment/Plan Assessment: Mr. Sol is a 75 y/o M with PMHx of non-insulin dependent T2DM, TORI on CPAP and recent I&D and flap closure of complicated laceration of right foot with retained foreign body (07/17) who is admitted for sepsis secondary to right leg cellulitis. #Sepsis - resolved Presented with fever, chills and right leg erythema. Had fever with temperature of 101.8 at home but afebrile here. WBC count 14.5 with 5% bands on admission. Most likely 2/2 right leg cellulitis and bacteremia. Otherwise hemodynamically stable with lactic acid of 1.3. * Vitals per protocol * Management for cellulitis/bacteremia as below # Cellulitis in RLE Recent I&D and flap closure of complicated laceration of right foot with retained foreign body (07/17) followed by 3 weeks of doxycycline. Xray and MRI with no evidence of osteomyelitis. Patient receiving antibiotics with an appropriate response. * Cont Unasyn 3g IV Q6H * Follow BCx - growing beta group A strep in both bottles * ID following, appreciate recs * Wound care consulted, appreciate recs # Knee pain Patient endorses excruciating tenderness and effusion in the right knee. Knee xray showed no fracture/dislocation or joint effusion. Moderate prepatellar soft tissue swelling. Most likely bursitis and cellulitis, consistent with U/S finding * S/p arthrocentesis on 08/15 * Follow aspiraton culture * Adequate pain control #Non-insulin dependent T2DM: Takes metformin ER 1000 mg PO daily. * Hold oral hypoglycemic agents while inpatient. * Accu-checks and low-dose sliding scale Novolog TIDAC. * HbA1c - 6.8 #HTN: * Continue bvaka-wc-gmimcwkld losartan 50 mg PO daily. #HLD: Takes simvastatin 40 mg PO daily and daily low-dose aspirin. * Atorvastatin 20 mg PO daily while inpatient. * Continue sqamq-sb-nfmuhkuhk aspirin 81 mg PO daily. #COPD: Not on home oxygen. Currently not in exacerbation. Satting well on room air. * Continue gejna-yu-fitzuifem Incruse Ellipta 62.5 mg 1 puff daily and albuterol inhaler PRN. #TORI: * Continue nocturnal CPAP. #BPH: * Continue tamsulosin 0.4 mg PO daily. #Depression: * Continue ihjic-zq-svmbmjumd fluoxetine 20 mg PO daily. #Insomnia: * Continue ejkeg-wy-cmmzkvcoa trazodone 25 mg PO daily. Diet: Consistent Carbohydrate 3 DVT PPx: Lovenox and ALPs CODE: FULL Problem List: 1. Cellulitis of right lower extremity 2. Sepsis 3. HTN (hypertension) 4. HLD (hyperlipidemia) 5. Non-insulin dependent type 2 diabetes mellitus 6. COPD (chronic obstructive pulmonary disease) 7. TORI on CPAP 8. BPH (benign prostatic hyperplasia) 9. Depression 10. Insomnia Pain Ratin Pain Location: RLE Pain Goal: Pain 4 or less Pain Plan: Mild pathway Tomorrow's Labs & Rationales: CBC, BEP
[2016-08-16 07:11] VITALS: BP 144/82
--- NOTE | 2016-08-16 08:34 | Patient Discharge Instructions ---
Discharge Instructions General Discharge Information You were seen/treated for: Cellulitis Knee bursitis Special Instructions: Please follow up with your primary care physician and orthopedist Dr. Brian within 1 week of discharge. Please complete a total of 3 week course of antibiotics - till september 01 2016 Diet Continue normal diet: Yes Activity Full Activity/No Limits: Yes (as tolerated) Acute Coronary Syndrome Inclusion Criteria At DC or during hospital stay patient has or had the following: ACS DIAGNOSIS No Discharge Core Measures Meds if any: Prescribed or Continued at Discharge Meds if any: NOT Prescribed or Continued at Discharge Congestive Heart Failure Inclusion Criteria At DC or during hospital stay patient has or had the following: CHF DIAGNOSIS No Discharge Core Measures Meds if any: Prescribed or Continued at Discharge Meds if any: NOT Prescribed or Continued at Discharge Cerebrovascular accident Inclusion Criteria At DC or during hospital stay patient has or had the following: CVA/TIA Diagnosis No Discharge Core Measures Meds if any: Prescribed or Continued at Discharge Meds if any: NOT Prescribed or Continued at Discharge Venous thromboembolism Inclusion Criteria VTE Diagnosis No VTE Type NONE VTE Confirmed by (Test) NONE Discharge Core Measures - Per Current guidelines, there needs to be overlap - treatment for the first 5 days of Warfarin therapy. - If discharged on Warfarin prior to 5 days of - overlap therapy, the patient will need to be - assessed for post discharge needs including - *Post discharge parental anticoagulation - *Warfarin and/or parental anticoagulation education - *Follow up date to check INR post discharge At least 5 days overlap therapy as Inpatient No Meds if any: Prescribed or Continued at Discharge Note: Overlap Therapy is Warfarin and Anticoagulant Meds if any: NOT Prescribed or Continued at Discharge
--- NOTE | 2016-08-16 09:22 | PN- Att Addend ---
Attending Addendum Attending Brief Note Patient reports improved right knee pain. General Appearance: Alert, No Acute Distress Skin: Cellulitis right knee and leg Cardiovascular: Regular Rate, Normal S1, Normal S2, No Murmurs Lungs: Clear to Auscultation, Normal Air Movement Abdomen: Normal Bowel Sounds, Soft, No Tenderness Neurological: Normal Speech, Strength at 5/5 X4 Ext, Cranial Nerves 3-12 NL, Reflexes 2+ Extremities: Cellulitis right leg extending to right knee with tenderness at prepatellar bursa Assessment 75-year-old with history of diabetes, sleep apnea status post recent glass injury right foot with surgical extraction for Dr. Marr placed on doxycycline for 3 weeks, recently discontinued presented with fever and right leg erythema. He complains of difficulty to bear weight on his right knee resulting in fall injuring his right leg and knee. He now has blood culture positive for beta strep A. He is currently on Unasyn. Status post drainage right prepatellar bursa demonstrating high leukocytosis with possible infection. Cultures pending. Plan Continue Unasyn pending aspirate cultures Follow ID and ortho recommendations Continue insulin sliding scale Continue other home medication PT evaluation Current Medications Sig/Yenifer Start time Last Medication Dose Route Stop Time Status Admin Acetaminophen 650 MG Q6P PRN 08/11 2114 AC 08/12 PO 0730 Albuterol Sulfate 2 PUF Q4-6 PRN PRN 08/11 2100 AC INH Ampicillin Sodium/ 3,000 MG Q6 08/11 2359 AC 08/16 Sulbactam Sodium IV 0541 Sodium Chloride 100 ML Aspirin Buffered 81 MG DAILY 08/12 1000 AC 08/15 PO 0904 Atorvastatin Calcium 20 MG 1700 08/12 1700 AC 08/15 PO 1705 Enoxaparin Sodium 40 MG DAILY 08/12 1000 AC 08/15 SC 0904 Fluoxetine HCl 20 MG DAILY 08/12 1000 AC 08/15 PO 0904 Ibuprofen 600 MG .STK-MED ONE 08/15 1642 DC PO 08/15 1643 Ibuprofen 600 MG Q6P PRN 08/11 2114 AC 08/15 PO 1641 Insulin Aspart 0 TIDAC 08/12 0800 AC 08/15 SC 1705 Losartan Potassium 50 MG DAILY 08/12 1000 AC 08/15 PO 0904 Magnesium Sulfate 1 GM ONCE ONE 08/15 0930 DC 08/15 Dextrose/Water 100 ML IV 08/15 1329 1304 Morphine Sulfate 2 MG Q6-PRN PRN 08/11 2115 AC IV Patient Medication 1 ED .STK-MED ONE 08/15 1406 NE Teaching ED 08/15 1407 Tamsulosin HCl 0.4 MG 08/12 AC 08/15 PO 2219 Tiotropium [place] 1 PUF DAILY 08/12 1000 AC 08/15 INH 0904 Trazodone HCl 25 MG QPM 08/11 2200 AC 08/15 PO 2219 Laboratory Tests 08/15 113 Chemistry C-Reactive Prot, Quant (<1.0 mg/dL) > 9.0 H Hematology CBC w Diff NO MAN DIFF REQ WBC (4.8 - 10.8 /CUMM) 5.8 RBC (4.70 - 6.10 /CUMM) 4.59 L Hgb (14.0 - 18.0 G/DL) 13.3 L Hct (42 - 52 %) 40.3 L MCV (80.0 - 94.0 FL) 87.9 MCH (27.0 - 31.0 PG) 29.0 RDW (11.5 - 14.5 %) 14.2 Plt Count (130 - 400 /CUMM) 159 MPV (7.4 - 10.4 FL) 8.4 Gran % (42.2 - 75.2 %) 76.9 H Lymphocytes % (20.5 - 51.1 %) 11.2 L Monocytes % (1.7 - 9.3 %) 8.3 Eosinophils % (0 - 5 %) 3.1 Basophils % (0.0 - 2.0 %) 0.5 Absolute Granulocytes (1.4 - 6.5 /CUMM) 4.5 Absolute Lymphocytes (1.2 - 3.4 /CUMM) 0.6 L Lymphocytes (%) 1 Absolute Monocytes (0.10 - 0.60 /CUMM) 0.5 Absolute Eosinophils (0.0 - 0.7 /CUMM) 0.2 Absolute Basophils (0.0 - 0.2 /CUMM) 0 % Normal PMNs (%) 96 PUBS MCHC (33.0 - 37.0 G/DL) 33.0 ESR Westergren (0 - 10 MM) 42 H Misc Hematology Test (%) Other Body Source Fluid WBC (0 - 5 /CUMM) 907713 H Fld Total RBCs Counted (0 /CUMM) 16174 H Vital Signs Date Time Temp Pulse Resp B/P B/P Pulse O2 O2 Flow FiO2 Mean Ox Delivery Rate 08/16 0730 20 95 Room Air 08/16 0711 97.1 68 20 144/82 95 Nasal 2.0L Cannula 08/15 2219 69 141/79 08/15 2200 98.6 69 20 141/69 95 Room Air 08/15 2142 68 94 08/15 1431 97.9 68 20 130/78 94 Room Air
--- NOTE | 2016-08-16 13:59 | PN- Infect Dx ---
Subjective Subjective: Afebrile. He still notes discomfort in the right leg and above the right knee Objective Last 24 Hrs of Vital Signs/I&O Vital Signs Date Time Temp Pulse Resp B/P B/P Pulse O2 O2 Flow FiO2 Mean Ox Delivery Rate 08/16 0730 20 95 Room Air 08/16 0711 97.1 68 20 144/82 95 Nasal 2.0L Cannula 08/15 2219 69 141/79 08/15 2200 98.6 69 20 141/69 95 Room Air 08/15 2142 68 94 08/15 1431 97.9 68 20 130/78 94 Room Air Intake & Output 08/16 1600 08/16 0800 08/16 0000 Intake Total 260 800 Output Total 400 650 Balance -140 150 Intake, IV 260 Intake, Oral 800 Number 1 Bowel Movements Output, Urine 400 650 Physical Exam Other Physical Findings: He appears comfortable in no acute distress Extremities localized, erythematous, fluctuant and tender area in the suprapatellar area above the knee; right leg erythema and edema persist, mildly tender over the calf; right foot with no erythema and minimal edema Results Last 24 Hours of Lab Results: Laboratory Tests 08/16 1999 Hematology Lymphocytes (%) 1 % Normal PMNs (%) 96 Misc Hematology Test (%) Other Body Source Fluid WBC (0 - 5 /CUMM) 945530 H Fld Total RBCs Counted (0 /CUMM) 96017 H Last 24 Hours of Faheem Results: Right prepatellar bursa culture August 15 negative, with gram stain revealing packed white blood cells and moderate gram-positive cocci Assessment/Plan Impression: Persistent erythema and edema of the right leg with a more localized area of inflammation in the suprapatellar area, either within the suprapatellar bursa, though the recent ultrasound revealed only a trace amount of fluid there, or in the more superficial tissues and feel that drainage of this process would be beneficial. His prepatellar inflammation has improved status post drainage of 10 mL of cloudy fluid from the bursa, with gram stain revealing evidence of infection. He remains afebrile with white blood cell count normal on Unasyn now Day 5 of treatment for Group A strep sepsis. Suggestion: 1. Would pursue IR drainage of the fluctuant area above the knee (discussed with Ortho and IR) 2. Follow-up recent culture of the right prepatellar bursa aspiration 3. Continue Unasyn pending above
[2016-08-16 14:29] VITALS: BP 130/78
--- NOTE | 2016-08-16 16:08 | ULTRASOUND REPORT ---
EXAMINATION: 1. Superficial ultrasound of right suprapatellar region 2. Ultrasound-guided aspiration of suprapatellar edema/fluid CLINICAL INFORMATION: Right knee read and Swollen. Concern for right suprapatellar joint effusion. COMPARISON: Superficial ultrasound 08/14/2016 INTERVENTIONAL RADIOLOGIST: Lance Saldana M.D. TECHNIQUE: Informed consent was obtained from the patient prior to the procedure. During this process, the procedure and potential alternatives were explained along with the intended outcome and benefits. The risks of the procedure including the possibility of an unsuccessful procedure, as well as the risk of not doing the procedure were discussed. The patient was given the opportunity to ask questions regarding the procedure and appeared competent to make decisions. A signed consent form which documents this discussion was placed in the medical record. Following informed consent, the patient was placed supine on the procedure table. Diagnostic imaging was performed of the right suprapatellar lesion which demonstrated diffuse subcutaneous edema with a trace amount of fluid. The skin was marked and then prepped and draped in usual sterile fashion. Local lidocaine was infiltrated. Under direct sonographic guidance, a 20-gauge spinal needle was advanced into the collection. Approximately 1-2 mL of mildly cloudy, serosanguineous fluid was aspirated. There was near complete collapse of the trace fluid. The needle was removed and pressure held for approximately 5 minutes until hemostasis was achieved. A sterile dressing was placed. Findings: Trace amount of suprapatellar fluid with near complete interval reduction status post ultrasound-guided aspiration. Impression: Successful ultrasound-guided aspiration of trace suprapatellar fluid.
--- NOTE | 2016-08-16 16:09 | PN- Orthopedic ---
Subjective Subjective: no fever, no flu like illness. redness in leg, per pt, is "a little better" . mild pain in the pre patella region. pt just underwent IR guided asp of prepatella collection. Objective Vital Signs and I&Os Vital Signs Date Time Temp Pulse Resp B/P B/P Pulse O2 O2 Flow FiO2 Mean Ox Delivery Rate 08/16 1429 98.3 71 20 130/78 94 Room Air 08/16 0730 20 95 Room Air 08/16 0711 97.1 68 20 144/82 95 Nasal 2.0L Cannula 08/15 2219 69 141/79 08/15 2200 98.6 69 20 141/69 95 Room Air 08/15 2142 68 94 Intake & Output 08/16 1600 08/16 0800 08/16 0000 08/15 1600 08/15 0800 08/15 0000 Intake Total 1000 605 508 4261 540 800 Output Total 950 400 650 702 450 Balance 50 -140 150 398 90 800 Intake, IV 100 260 200 300 Intake, Oral 900 800 900 240 800 Number 1 1 1 0 Bowel Movements Output, Stool 2 Output, Urine 950 400 650 700 450 Physical Exam: wdwn aox3, nad no resp distress. RLE: prepatella region with moderately intense erythema and induration, moderate tenderness to palp. no fluctuance. erythema and warmth to the medial and anterior lower leg and medial distal thigh region. +1 leg edema. knee ROM 0-90 with mild tightness on flexion, no effusion. nvi Results Last 48 Hours of Labs: Laboratory Tests 08/16 08/15 08/15 UNK 2000 1135 Chemistry C-Reactive Prot, Quant (<1.0 mg/dL) > 9.0 H Hematology CBC w Diff NO MAN DIFF REQ WBC (4.8 - 10.8 /CUMM) 5.8 RBC (4.70 - 6.10 /CUMM) 4.59 L Hgb (14.0 - 18.0 G/DL) 13.3 L Hct (42 - 52 %) 40.3 L MCV (80.0 - 94.0 FL) 87.9 MCH (27.0 - 31.0 PG) 29.0 RDW (11.5 - 14.5 %) 14.2 Plt Count (130 - 400 /CUMM) 159 MPV (7.4 - 10.4 FL) 8.4 Gran % (42.2 - 75.2 %) 76.9 H Lymphocytes % (20.5 - 51.1 %) 11.2 L Monocytes % (1.7 - 9.3 %) 8.3 Eosinophils % (0 - 5 %) 3.1 Basophils % (0.0 - 2.0 %) 0.5 Absolute Granulocytes (1.4 - 6.5 /CUMM) 4.5 Absolute Lymphocytes (1.2 - 3.4 /CUMM) 0.6 L Lymphocytes (%) 1 Absolute Monocytes (0.10 - 0.60 /CUMM) 0.5 Absolute Eosinophils (0.0 - 0.7 /CUMM) 0.2 Absolute Basophils (0.0 - 0.2 /CUMM) 0 % Normal PMNs (%) 96 PUBS MCHC (33.0 - 37.0 G/DL) 33.0 ESR Westergren (0 - 10 MM) 42 H Misc Hematology Test (%) Other Body Source Fluid WBC (0 - 5 /CUMM) Cancelled 346179 H Fld Total RBCs Counted (0 /CUMM) Cancelled 19842 H Assessment/Plan Assessment/Plan sepsis 2/2 Prepatella abscess with RLE cellulitis Pt had aspiration of collection by IR via US guidance immediately prior to my evaluation today. per the images that I reviewed, the collection was drained in its entierty. (no report yet) there is concern that this may return as there is still quite a bit of induration and cellulitis. We will continue to monitor him for need of I and D if the collection should re accumulate. This could likely be done at the bedside if needed. follow cultures of aspiration and cont Unasyn. dw Dr Brian.
[2016-08-16 21:59] VITALS: BP 120/70
--- NOTE | 2016-08-17 05:37 | PN- Housestaff ---
Subjective Follow-up For: RLE cellulitis Right knee bursitis Subjective: Patient seen and examined this morning. Knee pain improved to 3/10. Denies any fever, chills, chest discomfort, palpitations, dyspnea, abdominal pain, nausea, vomiting, headache. No events reported overnight. Review of Systems Constitutional: Reports: see HPI. Objective Last 24 Hrs of Vital Signs/I&O Vital Signs Date Time Temp Pulse Resp B/P B/P Pulse O2 O2 Flow FiO2 Mean Ox Delivery Rate 08/17 0905 68 130/76 08/17 0650 97.7 68 20 130/76 93 Room Air 08/17 0051 62 97 08/16 2159 98.1 73 18 120/70 93 08/16 2150 68 95 08/16 2120 73 120/70 08/16 1429 98.3 71 20 130/78 94 Room Air Intake & Output 08/17 1600 08/17 0800 08/17 0000 Intake Total 260 840 Output Total 750 Balance -490 840 Intake, IV 260 120 Intake, Oral 720 Output, Urine 750 Physical Exam General Appearance: Alert, Oriented X3, Cooperative, No Acute Distress Other Physical Findings: Skin Redness in RLE as described below Skin Temp/Moisture Exam: Warm/Dry Sepsis Skin Exam (color): Normal for Ethnicity HEENT Atraumatic, Mucous Membr. moist/pink Neck Supple, No JVD Cardiovascular Regular Rate, Normal S1, Normal S2 Lungs Clear to Auscultation Abdomen Soft, No Tenderness, Positive Bowel Sounds, Obese Extremities No Clubbing, No Cyanosis, Right Lower Extremity with Erythema Extending from Ankle to Knee and trace edema Current Medications: Current Medications Sig/Yenifer Start time Last Medication Dose Route Stop Time Status Admin Acetaminophen 650 MG Q6P PRN 08/11 2115 AC 08/12 PO 0730 Albuterol Sulfate 2 PUF Q4-6 PRN PRN 08/11 2100 AC INH Ampicillin Sodium/ 3,000 MG Q6 08/11 2359 AC 08/17 Sulbactam Sodium IV 0554 Sodium Chloride 100 ML Aspirin Buffered 81 MG DAILY 08/12 1000 AC 08/17 PO 0905 Atorvastatin Calcium 20 MG 1700 08/12 1700 AC 08/16 PO 1618 Enoxaparin Sodium 40 MG DAILY 08/12 1000 AC 08/17 SC 0905 Fluoxetine HCl 20 MG DAILY 08/12 1000 AC 08/17 PO 0905 Ibuprofen 600 MG .STK-MED ONE 08/16 1604 DC PO 08/16 1605 Ibuprofen 600 MG Q6P PRN 08/11 2114 AC 08/17 PO 0903 Insulin Aspart 0 TIDAC 08/12 0800 AC 08/16 SC 1618 Losartan Potassium 50 MG DAILY 08/12 1000 AC 08/17 PO 0905 Morphine Sulfate 2 MG Q6-PRN PRN 08/11 2114 AC IV Tamsulosin HCl 0.4 MG 08/12 220 AC 08/16 PO 212 Tiotropium Sophia 1 PUF DAILY 08/12 1000 AC 08/17 INH 0902 Trazodone HCl 25 MG QPM 08/11 2199 AC 08/16 PO 212 Assessment/Plan Assessment: Mr. Sol is a 75 y/o M with PMHx of non-insulin dependent T2DM, TORI on CPAP and recent I&D and flap closure of complicated laceration of right foot with retained foreign body (07/17) who is admitted for sepsis secondary to right leg cellulitis. #Sepsis - resolved Presented with fever, chills and right leg erythema. Had fever with temperature of 101.8 at home but afebrile here. WBC count 14.5 with 5% bands on admission. Most likely 2/2 right leg cellulitis and bacteremia. Otherwise hemodynamically stable with lactic acid of 1.3. * Vitals per protocol * Management for cellulitis/bacteremia as below # Cellulitis in RLE Recent I&D and flap closure of complicated laceration of right foot with retained foreign body (07/17) followed by 3 weeks of doxycycline. Xray and MRI with no evidence of osteomyelitis. Patient receiving antibiotics with an appropriate response. * Cont Unasyn 3g IV Q6H * Follow BCx - growing beta group A strep in both bottles * ID following, appreciate recs * Wound care consulted, appreciate recs # Knee pain Patient endorses excruciating tenderness and effusion in the right knee. Knee xray showed no fracture/dislocation or joint effusion. Moderate prepatellar soft tissue swelling. Most likely bursitis and cellulitis, consistent with U/S finding * S/p arthrocentesis of the patella on 08/15 and suprapatella on 08/16 * Follow aspiraton culture - moderate GPC and WBCs in both fluids * Adequate pain control #Non-insulin dependent T2DM: Takes metformin ER 1000 mg PO daily. * Hold oral hypoglycemic agents while inpatient. * Accu-checks and low-dose sliding scale Novolog TIDAC. * HbA1c - 6.8 #HTN: * Continue qienq-xd-eirpmqvge losartan 50 mg PO daily. #HLD: Takes simvastatin 40 mg PO daily and daily low-dose aspirin. * Atorvastatin 20 mg PO daily while inpatient. * Continue dtprb-vs-xjsjgnmhb aspirin 81 mg PO daily. #COPD: Not on home oxygen. Currently not in exacerbation. Satting well on room air. * Continue joaie-ti-llqbbgklg Incruse Ellipta 62.5 mg 1 puff daily and albuterol inhaler PRN. #TORI: * Continue nocturnal CPAP. #BPH: * Continue tamsulosin 0.4 mg PO daily. #Depression: * Continue hqmww-jj-cpfsyqcbg fluoxetine 20 mg PO daily. #Insomnia: * Continue sjtdl-tj-atxiqqixh trazodone 25 mg PO daily. Diet: Consistent Carbohydrate 3 DVT PPx: Lovenox and ALPs CODE: FULL Problem List: 1. Cellulitis of right lower extremity 2. Sepsis 3. HTN (hypertension) 4. HLD (hyperlipidemia) 5. Non-insulin dependent type 2 diabetes mellitus 6. COPD (chronic obstructive pulmonary disease) 7. TORI on CPAP 8. BPH (benign prostatic hyperplasia) 9. Depression 10. Insomnia Pain Ratin Pain Location: RLE Pain Goal: Pain 4 or less Pain Plan: Mild path Tomorrow's Labs & Rationales: None
[2016-08-17 06:50] VITALS: BP 130/76
--- NOTE | 2016-08-17 09:29 | PN- Att Addend ---
Attending Addendum Attending Brief Note Patient reports improved right knee pain. General Appearance: Alert, No Acute Distress Skin: Cellulitis right knee and leg Cardiovascular: Regular Rate, Normal S1, Normal S2, No Murmurs Lungs: Clear to Auscultation, Normal Air Movement Abdomen: Normal Bowel Sounds, Soft, No Tenderness Neurological: Normal Speech, Strength at 5/5 X4 Ext, Cranial Nerves 3-12 NL, Reflexes 2+ Extremities: Cellulitis right leg extending to right knee with tenderness at prepatellar bursa Assessment 75-year-old with history of diabetes, sleep apnea status post recent glass injury right foot with surgical extraction for Dr. Marr placed on doxycycline for 3 weeks, recently discontinued presented with fever and right leg erythema. He complains of difficulty to bear weight on his right knee resulting in fall injuring his right leg and knee. He now has blood culture positive for beta strep A. He is currently on Unasyn. Status post drainage right prepatellar bursa demonstrating no growth after 1 day and is status post day 1 drainage right suprapatellar bursa that is showing moderate gram-positive cocci and cultures still pending. Likely beta strep. He seemed to have responded. He has a bed available tomorrow. We will continue IV antibiotics for 1 more day and then switch to oral as per ID recommendations. Plan Continue Unasyn pending aspirate cultures Follow ID and ortho recommendations Continue insulin sliding scale Continue other home medication STR in am Current Medications Sig/Yenifer Start time Last Medication Dose Route Stop Time Status Admin Acetaminophen 650 MG Q6P PRN 08/11 2114 AC 08/12 PO 0730 Albuterol Sulfate 2 PUF Q4-6 PRN PRN 08/11 2100 AC INH Ampicillin Sodium/ 3,000 MG Q6 08/11 2359 AC 08/17 Sulbactam Sodium IV 0554 Sodium Chloride 100 ML Aspirin Buffered 81 MG DAILY 08/12 1000 AC 08/17 PO 0905 Atorvastatin Calcium 20 MG 1700 08/12 1700 AC 08/16 PO 1618 Enoxaparin Sodium 40 MG DAILY 08/12 1000 AC 08/17 SC 0905 Fluoxetine HCl 20 MG DAILY 08/12 1000 AC 08/17 PO 0905 Ibuprofen 600 MG .STK-MED ONE 08/16 1604 DC PO 08/16 1605 Ibuprofen 600 MG Q6P PRN 08/11 211 AC 08/17 PO 0903 Insulin Aspart 0 TIDAC 08/12 08 AC 08/16 SC 1618 Losartan Potassium 50 MG DAILY 08/12 999 AC 08/17 PO 0905 Morphine Sulfate 2 MG Q6-PRN PRN 08/11 2114 AC IV Tamsulosin HCl 0.4 MG 08/12 AC 08/16 PO 2119 Tiotropium Maxie 1 PUF DAILY 08/12 999 AC 08/17 INH 0902 Trazodone HCl 25 MG QPM 08/11 2199 AC 08/16 PO 2119 Laboratory Tests 08/16 UNK Other Body Source Fluid WBC Cancelled Fld Total RBCs Counted Cancelled Vital Signs Date Time Temp Pulse Resp B/P B/P Pulse O2 O2 Flow FiO2 Mean Ox Delivery Rate 08/17 0905 68 130/76 08/17 0650 97.7 68 20 130/76 93 Room Air 08/17 0051 62 97 08/169 98.1 73 18 120/70 93 08/16 2150 68 95 08/160 73 120/70 08/16 1429 98.3 71 20 130/78 94 Room Air
[2016-08-17] MEDS ORDERED: AUGMENTIN 875-1 EACH PO ×2 (11:39→12:25)
--- NOTE | 2016-08-17 12:24 | PN- Infect Dx ---
Subjective Subjective: Afebrile. He feels somewhat better though still reports discomfort in the right leg. Objective Last 24 Hrs of Vital Signs/I&O Vital Signs Date Time Temp Pulse Resp B/P B/P Pulse O2 O2 Flow FiO2 Mean Ox Delivery Rate 08/17 0905 68 130/76 08/17 0650 97.7 68 20 130/76 93 Room Air 08/17 0051 62 97 08/16 2159 98.1 73 18 120/70 93 08/16 2150 68 95 08/16 2120 73 120/70 08/16 1429 98.3 71 20 130/78 94 Room Air Intake & Output 08/17 1600 08/17 0800 08/17 0000 Intake Total 260 840 Output Total 500 750 Balance -500 -490 840 Intake, IV 260 120 Intake, Oral 720 Output, Urine 500 750 Physical Exam Other Physical Findings: He appears more comfortable in no acute distress Extremities decreased inflammation in the right suprapatellar area and the right prepatellar area, with full range of motion of the right knee; persistent erythema on the medial aspect of the right leg below the knee, mildly tender to palpation Results Last 24 Hours of Lab Results: No labs from today Last 24 Hours of Faheem Results: Right prepatellar bursa culture August 15 positive for yeast and possibly bacteria Right suprapatellar fluid culture August 16 no growth, with gram stain revealing moderate white blood cells and moderate gram-positive cocci Assessment/Plan Impression: Stable, with temperatures and white blood cell count remaining normal on Unasyn now Day 6 of treatment for Group A strep sepsis secondary to cellulitis, likely related to the right foot plantar wound, status post aspiration of 1-2 mL of mildly cloudy, serosanguineous fluid from the suprapatellar fluid collection yesterday, with gram stain revealing many gram-positive cocci, and drainage of 10 mL of cloudy fluid from the prepatellar bursa 2 days ago, with culture revealing yeast, likely a contamination, and probable bacteria to be identified. He has persistent erythema and edema of the right leg but there does appear to be decreased inflammation of both the right suprapatellar area and right prepatellar area. Suggestion: 1. Follow-up cultures of the right prepatellar bursa and right suprapatellar fluid collection 2. Continue elevation of the right leg 3. Continue Unasyn, with eventual change to Augmentin 875 mg po every 12 hours to complete a 2-3 week course of antibiotics
[2016-08-17 14:42] VITALS: BP 118/71
--- NOTE | 2016-08-17 15:04 | Discharge Summary ---
Visit Information Visit Dates Admission Date: 08/11/16 Discharge Date: 08/20/16 Hospital Course Course Attending Physician: LIO WALL MD Primary Care Physician: LIO WALL MD Consulting Request: 1 Consulting Specialty: Podiatry Consulting Physician: Dr. Marr Reason for Consult: Non healing plantar right foot ulcer. Consulting Request: 2 Consulting Specialty: Infectious Disease Consulting Physician: Dr. Francis Reason for Consult: Right leg cellulitis with knee involvement Consulting Request: 3 Consulting Specialty: Orthopedics Consulting Physician: Dr. Ewing Reason for Consult: Prepatelar bursa collection for aspiration Hospital Course: Mr. Sol is a 75-year-old man with a past medical history of non-insulin dependent diabetes mellitus, TORI on CPAP and recent I&D and flap closure of a complicated laceration of right foot with retained foreign body (July 2015) who presented with fevers, chills and right leg erythema of several hours duration. He was in his usual state of health until several hours before presentation when he slipped and fell down on the floor. According to his , he was "wobbly" following the fall and had to be helped to get up on his feet again. Following the fall, he complained of feeling cold. His checked his temperature which came back at 101.8 F. His also noted that his right lower leg was red which she did not recall being present before. He reported lack of appetite and nausea. He also vomited twice en route to the ED. He reported that his right leg occasionally feels slightly painful. He also complained of intermittent cough productive of clear sputum, increased urinary frequency and nocturia. He denied chest pain, shortness of pain, abdominal pain and dysuria. Of note, patient had recent I&D and flap closure of complicated laceration of right foot with retained foreign body (07/17) by Dr. Marr, after stepping on glass shards which remained embedded on the plantar surface of his right foot for several months. Following the surgery, he took doxycycline for three weeks which he stopped taking shortly before admission. Vital signs on presentation: Temperature 99.4F, pulse 94 bpm, respiratory rate 20/min, BP 156/70mm hg and O2 sat 96% on room air. Physical examination at presentation General: Patient lying comfortably on the bed not in any acute distress alert and oriented to time place and person, by the bedside. HEENT: PERRLA, no distended neck vessels Chest: Clear lungs bilaterally Heart: Regular rate and rhythm, S1 S2 normal, no murmurs Extremities: Mild bilateral pitting edema. There is an erythematous area on the morin of the right lower limb extend from below the knee to just above the ankle joint more prominent on the anterior. There is no obvious discharge. A wound dehiscence was noted on the right foot plantar surface just below fifth toe, and the closure site had a Hudson grade 2 ulceration measuring 2 cm x 0.5 cm. No probing or undermining was identified. Minimal serous drainage was noted. Superficial slough was noted overlying a mixed granular fibrotic wound bed. Labs on presentation revealed leukocytosis with WBC of 14,500 with left shift and granulocytes 93.8% and 22% bands, ESR of 8, potassium 3.7, BUN of 22. Lactic acid 1.3 and CRP of 1.6. Tibia-fibula x-ray and x-ray of the foot did not show any osteomyelitis or fractures. Blood cultures were collected. He was admitted for sepsis secondary to right leg cellulitis and started on IV Vancomycin and Ceftazidime. Blood cultures grew Beta Strep Group A and antibiotics were changed to IV Unasyn. Podiatry consult was obtained and an MRI was obtained to rule out osteomyelitis. The MRI of his right tibi, fibula and foot showed no osteomyelitis. The patient had significant swelling and discomfort around his right knee. He was reviewed by Infectious Disease [facility] consultant and an ultrasound of his right knee showed fluid in his prepatelar bursa about 0.5 cm AP diameter, but no evidence of a septic joint. He had ultrasound guided drainage of his prepatellar fluid collection, by interventional radiologist, Dr. Saldana. Approximately 1-2 mL of mildly cloudy, serosanguineous fluid was aspirated. He also had aspiration of a suprapatellar fluid collection. Cultures of the prepatellar and suprapatellar fluid collections showed yeast and Group A strep. He was discharged on PO Amoxicillin 500mg po every 8 hours to complete a 3 week course of antibiotics. He received novolog sliding scale insulin for his diabetes. His blood sugars were within acceptable ranges and was discharged on ohis homemedication of PO metformin. He was evaluated by physical therapy and discharged to short term rehabilitation. Allergies: Coded Allergies: adhesive (BLISTERS 08/11/16) Significant Procedures: 1. Ultrasound-guided aspiration of suprapatellar edema/fluid COMPARISON: Superficial ultrasound 08/14/2016 INTERVENTIONAL RADIOLOGIST: Lance Saldana M.D. TECHNIQUE: Informed consent was obtained from the patient prior to the procedure. During this process, the procedure and potential alternatives were explained along with the intended outcome and benefits. The risks of the procedure including the possibility of an unsuccessful procedure, as well as the risk of not doing the procedure were discussed. The patient was given the opportunity to ask questions regarding the procedure and appeared competent to make decisions. A signed consent form which documents this discussion was placed in the medical record. Following informed consent, the patient was placed supine on the procedure table. Diagnostic imaging was performed of the right suprapatellar lesion which demonstrated diffuse subcutaneous edema with a trace amount of fluid. The skin was marked and then prepped and draped in usual sterile fashion. Local lidocaine was infiltrated. Under direct sonographic guidance, a 20-gauge spinal needle was advanced into the collection. Approximately 1-2 mL of mildly cloudy, serosanguineous fluid was aspirated. There was near complete collapse of the trace fluid. The needle was removed and pressure held for approximately 5 minutes until hemostasis was achieved. A sterile dressing was placed. Findings: Trace amount of suprapatellar fluid with near complete interval reduction status post ultrasound-guided aspiration. Tibula and fibula MRI IMPRESSION: Diffuse subcutaneous edema which may represent cellulitis as per the clinical history. There is no focal fluid collection to suggest an abscess. Possible shallow ulcer lateral to the 5th MTP joint. No evidence of osteomyelitis. Nvyljdhv-az-mngavp arthritic changes throughout the foot as described. Foot MRI IMPRESSION: Diffuse subcutaneous edema which may represent cellulitis as per the clinical history. There is no focal fluid collection to suggest an abscess. Possible shallow ulcer lateral to the 5th MTP joint. No evidence of osteomyelitis. Jckunfjk-yt-dqfphp arthritic changes throughout the foot as described. Knee Xray IMPRESSION: No visible fracture or dislocation of the right knee. No significant knee joint effusion. Moderate prepatellar soft tissue swelling. Disposition Summary Disposition Principal Diagnosis: 1. Sepsis secondary to cellulitis of the right lower limb 2. Prepatelar bursa fluid collection 3.. Suprapatellar bursa fluid collection Additional Diagnosis: 4. Jjm-yqtwgrv-tfmebxpvw diabetes mellitus 5. BPH 6. Hypertension 7. Hyperlipidemia 8. Obstructive sleep apnea Discharge Disposition: [facility] Discharge Instructions General Discharge Information Code Status: Full Code Patient's Diet: Diabetic diet/Consistent carbohydrate 3 diet Patient's Activity: Self limited activity Follow-Up Instructions/Appts: 1. Please follow up with your primary care physician Dr. Wall within 1 week of discharge. 2. Please follow up with your orthopedic surgeon, Dr. Ewing within 1 week of discharge. Medications at Discharge Discharge Medications: Continue taking these medications: Losartan Potassium (Losartan Potassium) 50 MG TABLET 1 Tablet ORAL DAILY Simvastatin (Simvastatin*) 40 MG TABLET 1 Tablet ORAL Every night Metformin HCl (Metformin HCl ER) 1,000 MG TAB.ER.24 1 Tablet ORAL DAILY Tamsulosin HCl (Flomax) 0.4 MG CAP.ER.24H 1 Capsule ORAL DAILY Aspirin (Ecotrin*) 81 MG TABLET.DR 1 Tablet ORAL QOD Umeclidinium Bellflower (Incruse Ellipta) 62.5 MCG/ACTUATION BLST.W.DEV 1 PUFF Inhale through mouth DAILY Fluoxetine HCl (Fluoxetine HCl) 20 MG CAPSULE 1 Capsule ORAL DAILY Trazodone HCl (Trazodone HCl) 50 MG TABLET 0.5 Tablet ORAL Every night Albuterol Sulfate (Ventolin Hfa) 90 MCG HFA.AER.AD 2 Puff Inhale through mouth EVERY 4-6 HOURS NEEDED as needed for COPD Multivit-Min/FA/Lycopen/Lutein (Centrum Silver Men Tablet) 300 MCG-600 MCG-300 MCG TABLET 1 Tablet ORAL DAILY Start taking the following new medications: Amoxicillin (Amoxicillin) 500 MG CAPSULE 1 Capsule ORAL THREE TIMES DAILY Qty = 38 No Refills Copies To: DUKE BOWLES,LIO Morales; MARIANO EWING MD, MD,IAN Bonilla; MONIKA THOMPSON MD, MD Review Statement Documenting Attending: MONIKA THOMPSON MD
[2016-08-17 23:15] VITALS: BP 140/77
[2016-08-18 07:00] VITALS: BP 131/66
[2016-08-18] MEDS ORDERED: AUGMENTIN 875-1 EACH PO (07:40)
--- NOTE | 2016-08-18 08:25 | PN- Housestaff ---
Subjective Follow-up For: RLE Cellulitis Subjective: Mr Sol was seen and examined this morning. Resting comfortably in the chair beside his bed. Patient states that he is feeling better although still continues to experience right lower extremity knee pain. Pain is rated 3 out of 10 severity. Described as sharp. Right knee continues to be inflamed. Tender to touch. Denies any fever, chills, nausea, vomiting. Tolerating by mouth intake well. Review of Systems Constitutional: Reports: see HPI. Objective Last 24 Hrs of Vital Signs/I&O Vital Signs Date Time Temp Pulse Resp B/P B/P Pulse O2 O2 Flow FiO2 Mean Ox Delivery Rate 08/18 1005 74 14 118/72 08/18 0830 20 95 Room Air 08/18 0700 97.8 61 20 131/66 93 CPAP 08/18 0040 70 96 08/18 0000 CPAP 08/17 2315 98.2 73 20 140/77 95 CPAP 08/17 2202 81 93 08/17 1600 Room Air 08/17 1442 97.4 70 20 118/71 95 Room Air Intake & Output 08/18 1600 08/18 0800 08/18 0000 Intake Total 200 850 Output Total 400 1000 Balance -200 -150 Intake, IV 200 Intake, Oral 850 Output, Urine 400 1000 Physical Exam General Appearance: Alert, Oriented X3, Cooperative Cardiovascular: Regular Rate, Normal S1, Normal S2 Lungs: Clear to Auscultation Abdomen: Normal Bowel Sounds, Soft, No Tenderness Neurological: Normal Gait, Normal Speech Extremities: Right Lower extremity, tender, erythmatous, decreased from previously marked markings. Kneee wrapped in bandage. Current Medications: Current Medications Sig/Yenifer Start time Last Medication Dose Route Stop Time Status Admin Acetaminophen 650 MG Q6P PRN 08/11 2115 AC 08/12 PO 0730 Acyclovir 1 JUICE 5 TIMES A DAY 08/17 1400 AC 08/18 TOP 08/21 1001 1007 Albuterol Sulfate 2 PUF Q4-6 PRN PRN 08/11 2100 AC INH Ampicillin Sodium/ 3,000 MG Q6 08/11 2359 AC 08/18 Sulbactam Sodium IV 0607 Sodium Chloride 100 ML Aspirin Buffered 81 MG DAILY 08/12 1000 AC 08/18 PO 1005 Atorvastatin Calcium 20 MG 1700 08/12 1700 AC 08/17 PO 1652 Benzocaine 1 JUICE Q6P PRN 08/17 1400 AC TOP Enoxaparin Sodium 40 MG DAILY 08/12 1000 AC 08/18 SC 1006 Fluoxetine HCl 20 MG DAILY 08/12 1000 AC 08/18 PO 1005 Ibuprofen 600 MG .STK-MED ONE 08/18 0030 DC PO 08/18 0031 Ibuprofen 600 MG Q6P PRN 08/11 2115 AC 08/18 PO 0946 Insulin Aspart 0 TIDAC 08/12 0800 AC 08/17 SC 1652 Lactobacillus 1 CAP DAILY 08/17 1137 AC 08/18 Acidophilus PO 1005 Losartan Potassium 50 MG DAILY 08/12 1000 AC 08/18 PO 1005 Morphine Sulfate 2 MG Q6-PRN PRN 08/11 2115 AC IV Patient Medication 1 ED .STK-MED ONE 08/17 1434 DC Teaching ED 08/17 1435 Tamsulosin HCl 0.4 MG 0 08/12 2200 AC 08/17 PO 210 Tiotropium [place] 1 PUF DAILY 08/12 1000 AC 08/18 INH 1005 Trazodone HCl 25 MG QPM 08/11 2199 AC 08/17 PO 2103 Assessment/Plan Assessment: Mr. Sol is a 75 y/o M with PMHx of non-insulin dependent T2DM, TORI on CPAP and recent I&D and flap closure of complicated laceration of right foot with retained foreign body (07/17) who is admitted for sepsis secondary to right leg cellulitis. #Sepsis - resolved Presented with fever, chills and right leg erythema. Had fever with temperature of 101.8 at home but afebrile here. WBC count 14.5 with 5% bands on admission. Most likely 2/2 right leg cellulitis and bacteremia. Otherwise hemodynamically stable with lactic acid of 1.3. * Vitals per protocol * Management for cellulitis/bacteremia as below # Cellulitis in RLE Recent I&D and flap closure of complicated laceration of right foot with retained foreign body (07/17) followed by 3 weeks of doxycycline. Xray and MRI with no evidence of osteomyelitis. Patient receiving antibiotics with an appropriate response. * Cont Unasyn 3g IV Q6H * Follow BCx - growing beta group A strep in both bottles * ID following, appreciate recs * Wound care consulted, appreciate recs # Knee pain Patient endorses excruciating tenderness and effusion in the right knee. Knee xray showed no fracture/dislocation or joint effusion. Moderate prepatellar soft tissue swelling. Most likely bursitis and cellulitis, consistent with U/S finding * S/p arthrocentesis of the patella on 08/15 and suprapatella on 08/16 * Follow aspiraton culture - moderate GPC and WBCs in both fluids * Adequate pain control #Non-insulin dependent T2DM: Takes metformin ER 1000 mg PO daily. * Hold oral hypoglycemic agents while inpatient. * Accu-checks and low-dose sliding scale Novolog TIDAC. * HbA1c - 6.8 * Will convert to Oral Hypoglycemic once discharged. #HTN: * Continue prhgi-gx-nkfrxmbcl losartan 50 mg PO daily. #HLD: Takes simvastatin 40 mg PO daily and daily low-dose aspirin. * Atorvastatin 20 mg PO daily while inpatient. * Continue joshn-ec-yooslyxcv aspirin 81 mg PO daily. #COPD: Not on home oxygen. Currently not in exacerbation. Satting well on room air. * Continue krvgs-ws-exqhmxvij Incruse Ellipta 62.5 mg 1 puff daily and albuterol inhaler PRN. #TORI: * Continue nocturnal CPAP. #BPH: * Continue tamsulosin 0.4 mg PO daily. #Depression: * Continue piehp-oc-qaoqdobwo fluoxetine 20 mg PO daily. #Insomnia: * Continue mnmrk-ei-qgqhjewxu trazodone 25 mg PO daily. 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 DVT PPx: Lovenox and ALPs CODE: FULL Problem List: 1. Insomnia 2. Depression 3. BPH (benign prostatic hyperplasia) 4. Cellulitis of right lower extremity 5. HTN (hypertension) 6. HLD (hyperlipidemia) Pain Ratin Pain Location: Right KNee Pain Goal: Remain pain free Pain Plan: Tylenol Tomorrow's Labs & Rationales: No Labs Consulting Request: Consulting Specialty: Orthopedics Consulting Physician: Dr. Brian Reason for Consult: Prepatelar bursa collection for aspiration
--- NOTE | 2016-08-18 12:12 | PN- Att Addend ---
Attending Addendum Attending Brief Note Patient reports improved right knee pain. General Appearance: Alert, No Acute Distress Skin: Cellulitis right knee and leg Cardiovascular: Regular Rate, Normal S1, Normal S2, No Murmurs Lungs: Clear to Auscultation, Normal Air Movement Abdomen: Normal Bowel Sounds, Soft, No Tenderness Neurological: Normal Speech, Strength at 5/5 X4 Ext, Cranial Nerves 3-12 NL, Reflexes 2+ Extremities: Cellulitis right leg extending to right knee with tenderness at prepatellar bursa Assessment 75-year-old with history of diabetes, sleep apnea status post recent glass injury right foot with surgical extraction for Dr. Marr placed on doxycycline for 3 weeks, recently discontinued presented with fever and right leg erythema. He complains of difficulty to bear weight on his right knee resulting in fall injuring his right leg and knee. He now has blood culture positive for beta strep A. He is currently on Unasyn. Status post drainage right prepatellar bursa demonstrating no growth after 2 day and drainage from right suprapatellar bursa has come back positive for beta group A strep. He seemed to have responded on IV Unasyn. He is ready for discharge on Augmentin for total 3 weeks. Plan Augmentin for 2 more weeks Follow ID and ortho recommendations Switch to oral hyperglycemics Continue other home medication STR placement Current Medications Sig/Yenifer Start time Last Medication Dose Route Stop Time Status Admin Acetaminophen 650 MG Q6P PRN 08/115 AC 08/12 PO 0730 Acyclovir 1 JUICE 5 TIMES A DAY 08/17 1400 AC 08/18 TOP 08/21 1001 1007 Albuterol Sulfate 2 PUF Q4-6 PRN PRN 08/11 2100 AC INH Ampicillin Sodium/ 3,000 MG Q6 08/11 2359 AC 08/18 Sulbactam Sodium IV 1148 Sodium Chloride 100 ML Aspirin Buffered 81 MG DAILY 08/12 1000 AC 08/18 PO 1005 Atorvastatin Calcium 20 MG 1700 08/12 1700 AC 08/17 PO 1652 Benzocaine 1 JUICE Q6P PRN 08/17 1400 AC TOP Enoxaparin Sodium 40 MG DAILY 08/12 1000 AC 08/18 SC 1006 Fluoxetine HCl 20 MG DAILY 08/12 1000 AC 08/18 PO 1005 Ibuprofen 600 MG .STK-MED ONE 08/18 0030 DC PO 08/18 0031 Ibuprofen 600 MG Q6P PRN 08/11 AC 08/18 PO 0946 Insulin Aspart 0 TIDAC 08/12 0800 AC 08/17 SC 1652 Lactobacillus 1 CAP DAILY 08/17 1137 AC 08/18 Acidophilus PO 1005 Losartan Potassium 50 MG DAILY 08/12 1000 AC 08/18 PO 1005 Morphine Sulfate 2 MG Q6-PRN PRN 08/11 211 AC IV Patient Medication 1 ED .STK-MED ONE 08/17 1434 MT Teaching ED 08/17 1435 Tamsulosin HCl 0.4 MG 2200 08/12 2200 AC 08/17 PO 2104 Tiotropium [place] 1 PUF DAILY 08/12 1000 AC 08/18 INH 1005 Trazodone HCl 25 MG QPM 08/110 AC 08/17 PO 2104 Vital Signs Date Time Temp Pulse Resp B/P B/P Pulse O2 O2 Flow FiO2 Mean Ox Delivery Rate 08/18 1005 74 14 118/72 08/18 0830 20 95 Room Air 08/18 0700 97.8 61 20 131/66 93 CPAP 08/18 0040 70 96 08/18 0000 CPAP 08/17 2315 98.2 73 20 140/77 95 CPAP 08/17 2202 81 93 08/17 1600 Room Air 08/17 1442 97.4 70 20 118/71 95 Room Air
[2016-08-18 14:21] VITALS: BP 122/60
[2016-08-18 23:28] VITALS: BP 140/64
[2016-08-19 06:44] VITALS: BP 151/89
--- NOTE | 2016-08-19 07:07 | PN- Housestaff ---
Subjective Follow-up For: RLE cellulitis Subjective: Mr. Sol was seen and examined this morning. He is resting comfortably in bed. Patient states that he feels good and denies any issues overnight. Patient states he continues to experience right sided knee pain. Pain is rated at a 3 out of 10 in severity. Described as sharp. Worse with ambulation. Patient denies any fever, chills, nausea, vomiting. Using CPAP overnight. He is tolerating a by mouth intake well. He states he would like to be discharged. Review of Systems Constitutional: Reports: see HPI. Objective Last 24 Hrs of Vital Signs/I&O Vital Signs Date Time Temp Pulse Resp B/P B/P Pulse O2 O2 Flow FiO2 Mean Ox Delivery Rate 08/19 0644 97.9 66 20 151/89 95 CPAP 08/19 0024 69 96 08/19 0000 93 CPAP 2.0L 08/18 2328 97.9 72 20 140/64 93 Room Air 08/18 2200 78 96 08/18 2120 72 140/64 08/18 1421 97.8 74 16 122/60 95 Room Air 08/18 1005 74 14 118/72 Intake & Output 08/19 1600 08/19 0800 08/19 0000 Intake Total 450 450 Output Total 750 850 Balance -300 -400 Intake, IV 100 Intake, Oral 350 450 Number 1 1 Bowel Movements Output, Urine 750 850 Physical Exam General Appearance: Alert, Oriented X3, Cooperative Cardiovascular: Regular Rate, Normal S1, Normal S2, No Murmurs Lungs: Clear to Auscultation Abdomen: Normal Bowel Sounds, Soft, No Tenderness Neurological: Normal Speech Extremities: Generalized Lower Extremity edema Right Patellar wrapped in bandage. No tenderness. Current Medications: Current Medications Sig/Yenifer Start time Last Medication Dose Route Stop Time Status Admin Acetaminophen 650 MG Q6P PRN 08/11 2115 AC 08/12 PO 0730 Acyclovir 1 JUICE 5 TIMES A DAY 08/17 1400 AC 08/19 TOP 08/21 1001 0553 Albuterol Sulfate 2 PUF Q4-6 PRN PRN 08/11 2100 AC INH Ampicillin Sodium/ 3,000 MG Q6 08/11 2359 AC 08/19 Sulbactam Sodium IV 0551 Sodium Chloride 100 ML Aspirin Buffered 81 MG DAILY 08/12 1000 AC 08/18 PO 1005 Atorvastatin Calcium 20 MG 1700 06/11 1700 AC 08/18 PO 1745 Benzocaine 1 JUICE Q6P PRN 08/17 1400 AC TOP Docusate Sodium 100 MG DAILY PRN 08/19 0915 UNVr PO Enoxaparin Sodium 40 MG DAILY 08/12 1000 AC 08/18 SC 1006 Fluoxetine HCl 20 MG DAILY 08/12 1000 AC 08/18 PO 1005 Ibuprofen 600 MG .STK-MED ONE 08/18 2221 DC PO 08/18 2222 Ibuprofen 600 MG .STK-MED ONE 08/18 0946 DC PO 08/18 0947 Ibuprofen 600 MG Q6P PRN 08/11 2115 AC 08/18 PO 2220 Insulin Aspart 0 TIDAC 08/12 0800 AC 08/18 SC 1746 Lactobacillus 1 CAP DAILY 08/17 1137 AC 08/18 Acidophilus PO 1005 Losartan Potassium 50 MG DAILY 08/12 1000 AC 08/18 PO 1005 Morphine Sulfate 2 MG Q6-PRN PRN 08/11 2115 AC IV Tamsulosin HCl 0.4 MG 2200 08/12 2200 AC 08/18 PO 2120 Tiotropium [place] 1 PUF DAILY 08/12 1000 AC 08/18 INH 1005 Trazodone HCl 25 MG QPM 08/11 2200 AC 08/18 PO 2120 Last 24 Hrs of Lab/Faheem Results Last 24 Hrs of Labs/Mics: Laboratory Tests 08/19/16 0620: Anion Gap 4 L, Estimated GFR > 60, BUN/Creatinine Ratio 22.0 Assessment/Plan Assessment: Mr. Sol is a 75 y/o M with PMHx of non-insulin dependent T2DM, TORI on CPAP and recent I&D and flap closure of complicated laceration of right foot with retained foreign body (07/17) who is admitted for sepsis secondary to right leg cellulitis. #Sepsis - resolved Presented with fever, chills and right leg erythema. Had fever with temperature of 101.8 at home but afebrile here. WBC count 14.5 with 5% bands on admission. Most likely 2/2 right leg cellulitis and bacteremia. Otherwise hemodynamically stable with lactic acid of 1.3. * Vitals per protocol * Management for cellulitis/bacteremia as below # Cellulitis in RLE Recent I&D and flap closure of complicated laceration of right foot with retained foreign body (07/17) followed by 3 weeks of doxycycline. Xray and MRI with no evidence of osteomyelitis. Patient receiving antibiotics with an appropriate response. * Cont Unasyn 3g IV Q6H, ham[place] convert to Augementin as an outpatient. * Follow BCx - growing beta group A strep in both bottles * ID following, appreciate recs * Wound care consulted, appreciate recs # Knee pain Patient endorses excruciating tenderness and effusion in the right knee. Knee xray showed no fracture/dislocation or joint effusion. Moderate prepatellar soft tissue swelling. Most likely bursitis and cellulitis, consistent with U/S finding * S/p arthrocentesis of the patella on 08/15 and suprapatella on 08/16 * Follow aspiraton culture - moderate GPC and WBCs in both fluids * Adequate pain control #Non-insulin dependent T2DM: Takes metformin ER 1000 mg PO daily. * Hold oral hypoglycemic agents while inpatient. * Accu-checks and low-dose sliding scale Novolog TIDAC. * HbA1c - 6.8 * Will convert to Oral Hypoglycemic once discharged. #HTN: * Continue rpdqo-nj-gbaegsqgr losartan 50 mg PO daily. #HLD: Takes simvastatin 40 mg PO daily and daily low-dose aspirin. * Atorvastatin 20 mg PO daily while inpatient. * Continue xagch-ew-ybhuoqhlg aspirin 81 mg PO daily. #COPD: Not on home oxygen. Currently not in exacerbation. Satting well on room air. * Continue ottox-qu-oprwhofak Incruse Ellipta 62.5 mg 1 puff daily and albuterol inhaler PRN. #TORI: * Continue nocturnal CPAP. #BPH: * Continue tamsulosin 0.4 mg PO daily. #Depression: * Continue nirvx-yv-axmoypzuo fluoxetine 20 mg PO daily. #Insomnia: * Continue eyweq-bj-fnzqvxapc trazodone 25 mg PO daily. 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 DVT PPx: Lovenox and ALPs CODE: FULL Problem List: 1. Insomnia 2. Depression 3. TORI on CPAP 4. HTN (hypertension) 5. Cellulitis of right lower extremity 6. HLD (hyperlipidemia) Pain Ratin Pain Location: Right Lower Extremity Pain Goal: Remain pain free Pain Plan: Morphine Tomorrow's Labs & Rationales: No Labs Consulting Request: Consulting Specialty: Orthopedics Consulting Physician: Dr. Brian Reason for Consult: Prepatelar bursa collection for aspiration
--- NOTE | 2016-08-19 08:49 | PN- Att Addend ---
Attending Addendum Attending Brief Note Patient reports improved right knee pain. General Appearance: Alert, No Acute Distress Skin: Cellulitis right knee and leg Cardiovascular: Regular Rate, Normal S1, Normal S2, No Murmurs Lungs: Clear to Auscultation, Normal Air Movement Abdomen: Normal Bowel Sounds, Soft, No Tenderness Neurological: Normal Speech, Strength at 5/5 X4 Ext, Cranial Nerves 3-12 NL, Reflexes 2+ Extremities: Cellulitis right leg extending to right knee with tenderness at prepatellar bursa Assessment 75-year-old with history of diabetes, sleep apnea status post recent glass injury right foot with surgical extraction for Dr. Marr placed on doxycycline for 3 weeks, recently discontinued presented with fever and right leg erythema. He complains of difficulty to bear weight on his right knee resulting in fall injuring his right leg and knee. He now has blood culture positive for beta strep A. He is currently on Unasyn. Status post drainage right prepatellar bursa demonstrating no growth after 2 day and drainage from right suprapatellar bursa has come back positive for beta group A strep. He seemed to have responded on IV Unasyn. He is ready for discharge on Augmentin for total 3 weeks. At this point insurance issues are holding his discharge. Plan Augmentin for 2 more weeks andupon discharge Follow ID and ortho recommendations Switch to oral hyperglycemics Continue other home medication STR placement Current Medications Sig/Yenifer Start time Last Medication Dose Route Stop Time Status Admin Acetaminophen 650 MG Q6P PRN 08/11 2115 AC 08/12 PO 0730 Acyclovir 1 JUICE 5 TIMES A DAY 08/17 1400 AC 08/19 TOP 08/21 1001 0553 Albuterol Sulfate 2 PUF Q4-6 PRN PRN 08/11 2100 AC INH Ampicillin Sodium/ 3,000 MG Q6 08/11 2359 AC 08/19 Sulbactam Sodium IV 0551 Sodium Chloride 100 ML Aspirin Buffered 81 MG DAILY 08/12 1000 AC 08/18 PO 1005 Atorvastatin Calcium 20 MG 1700 08/12 1700 AC 08/18 PO 1745 Benzocaine 1 JUICE Q6P PRN 08/17 1400 AC TOP Enoxaparin Sodium 40 MG DAILY 08/12 1000 AC 08/18 SC 1006 Fluoxetine HCl 20 MG DAILY 08/12 1000 AC 08/18 PO 1005 Ibuprofen 600 MG .STK-MED ONE 06/17 2221 DC PO 08/18 2221 Ibuprofen 600 MG .STK-MED ONE 08/18 0946 DC PO 08/18 0947 Ibuprofen 600 MG Q6P PRN 08/11 2114 AC 08/18 PO 222 Insulin Aspart 0 TIDAC 08/12 0800 AC 08/18 SC 1746 Lactobacillus 1 CAP DAILY 08/17 1137 AC 08/18 Acidophilus PO 1005 Losartan Potassium 50 MG DAILY 08/12 1000 AC 08/18 PO 1005 Morphine Sulfate 2 MG Q6-PRN PRN 08/11 2114 AC IV Tamsulosin HCl 0.4 MG 08/12 AC 08/18 PO 2120 Tiotropium [place] 1 PUF DAILY 08/12 1000 AC 08/18 INH 1005 Trazodone HCl 25 MG QPM 08/11 2199 AC 08/18 PO 2119 Laboratory Tests 08/20 619 Chemistry Sodium (137 - 145 mmol/L) 137 Potassium (3.5 - 5.1 mmol/L) 4.3 Chloride (98 - 107 mmol/L) 101 Carbon Dioxide (22 - 30 mmol/L) 31 H Anion Gap (5 - 16) 4 L BUN (9 - 20 mg/dL) 22 H Creatinine (0.7 - 1.2 mg/dL) 1.0 Estimated GFR (>60 ml/min) > 60 BUN/Creatinine Ratio (7 - 25 %) 22.0 Vital Signs Date Time Temp Pulse Resp B/P B/P Pulse O2 O2 Flow FiO2 Mean Ox Delivery Rate 08/19 0644 97.9 66 20 151/89 95 CPAP 08/19 0024 69 96 08/19 0000 93 CPAP 2.0L 08/188 97.9 72 20 140/64 93 Room Air 08/18 2200 78 96 08/180 72 140/64 08/18 1421 97.8 74 16 122/60 95 Room Air 08/18 1005 74 14 118/72
--- NOTE | 2016-08-19 10:44 | PN- Infect Dx ---
Subjective Subjective: Afebrile. He feels somewhat improved. Objective Last 24 Hrs of Vital Signs/I&O Vital Signs Date Time Temp Pulse Resp B/P B/P Pulse O2 O2 Flow FiO2 Mean Ox Delivery Rate 08/19 1020 73 126/70 08/19 0644 97.9 66 20 151/89 95 CPAP 08/19 0024 69 96 08/19 0000 93 CPAP 2.0L 08/18 2328 97.9 72 20 140/64 93 Room Air 08/18 2200 78 96 08/18 2120 72 140/64 08/18 1421 97.8 74 16 122/60 95 Room Air Intake & Output 08/19 1600 08/19 0800 08/19 0000 Intake Total 450 450 Output Total 750 850 Balance -300 -400 Intake, IV 100 Intake, Oral 350 450 Number 1 1 Bowel Movements Output, Urine 750 850 Physical Exam Other Physical Findings: He is comfortable in no acute distress Extremities decreased swelling and tenderness in the right suprapatellar area; minimal swelling and erythema in the right prepatellar area; decreased erythema in the medial aspect of the right thigh; mild erythema and tenderness persists on the medial aspect of the right calf Results Last 24 Hours of Lab Results: Laboratory Tests 08/19 0620 Chemistry Sodium (137 - 145 mmol/L) 137 Potassium (3.5 - 5.1 mmol/L) 4.3 Chloride (98 - 107 mmol/L) 101 Carbon Dioxide (22 - 30 mmol/L) 31 H Anion Gap (5 - 16) 4 L BUN (9 - 20 mg/dL) 22 H Creatinine (0.7 - 1.2 mg/dL) 1.0 Estimated GFR (>60 ml/min) > 60 BUN/Creatinine Ratio (7 - 25 %) 22.0 Last 24 Hours of Faheem Results: Right prepatellar bursa culture positive for yeast and scant growth of Group A strep Right suprapatellar fluid collection culture August 16 negative Assessment/Plan Impression: Appears to be overall improving with temperatures and white blood cell count remaining normal now Day 8 of Unasyn for Group A strep sepsis secondary to cellulitis, presumably related to the right foot plantar wound, status post aspiration of 1-2 mL of mildly cloudy, serosanguineous fluid from the suprapatellar fluid collection 3 days ago, with gram stain revealing many gram- positive cocci but with culture negative, likely related to the prior antibiotics, and status post drainage of 10 mL of cloudy fluid from the prepatellar bursa 4 days ago, with culture revealing yeast, likely a contamination, and a scant growth of Group A strep. He has persistent inflammation of the right leg but there does appear to be overall improvement. Suggestion: 1. Discontinue Unasyn 2. Begin Amoxicillin 500 mg mg po every 8 hours to complete a 2-3 week course of antibiotics
[2016-08-19 14:50] VITALS: BP 130/70
[2016-08-19 22:41] VITALS: BP 120/70
[2016-08-20 06:18] VITALS: BP 145/77
--- NOTE | 2016-08-20 07:38 | PN- Orthopedic ---
Subjective Subjective: feeling better, no fever, mild pain to R proximal knee region although improving. Objective Vital Signs and I&Os Vital Signs Date Time Temp Pulse Resp B/P B/P Pulse O2 O2 Flow FiO2 Mean Ox Delivery Rate 08/20 617 97.5 64 20 145/77 96 08/20 0026 74 94 08/20 0000 Nasal 2.0L Cannula 08/19 2241 98.0 70 20 120/70 93 Room Air 08/19 2147 72 94 08/19 2127 120/70 08/19 1450 97.4 74 20 130/70 96 08/19 1020 73 126/70 08/19 0800 94 CPAP 2.0L Intake & Output 08/20 0800 08/20 0000 08/19 1600 08/19 0800 08/19 0000 08/18 1600 Intake Total 240 510 932 883 3124 Output Total 1175 175 600 750 850 850 Balance -935 -175 -90 -300 -400 150 Intake, IV 10 100 100 Intake, Oral 240 500 350 450 900 Number 2 1 1 1 Bowel Movements Output, Urine 1175 175 600 750 850 850 Physical Exam: wdwn aox3, nad no resp distress RLE- mild swelling and erythema to medial knee and lower leg, much improved. R suprapatella region of induration, warmth and tenderness. no effusion. no fluctuance. no suspected collection. Assessment/Plan Assessment/Plan cellulitis RLE with suprapatella collection sp needle aspiration and subsequent IR drainage. abx per ID no need for formal I and D at this time however, would follow closely as out pt since there is still moderate induration at the suprapatella region. Fup with Dr Brian in 5-7 days after DC.
[2016-08-20] MEDS ORDERED: AUGMENTIN 875-1 EACH PO (08:51)
[2016-08-20] MEDS ORDERED: AMOXICILLIN500 M2 PO (08:59)
--- NOTE | 2016-08-20 09:48 | PN- Att Addend ---
Attending Addendum Attending Brief Note Patient reports improved right knee pain. General Appearance: Alert, No Acute Distress Skin: Cellulitis right knee and leg Cardiovascular: Regular Rate, Normal S1, Normal S2, No Murmurs Lungs: Clear to Auscultation, Normal Air Movement Abdomen: Normal Bowel Sounds, Soft, No Tenderness Neurological: Normal Speech, Strength at 5/5 X4 Ext, Cranial Nerves 3-12 NL, Reflexes 2+ Extremities: Cellulitis right leg extending to right knee with tenderness at prepatellar bursa Assessment 75-year-old with history of diabetes, sleep apnea status post recent glass injury right foot with surgical extraction for Dr. Marr placed on doxycycline for 3 weeks, recently discontinued presented with fever and right leg erythema. He complains of difficulty to bear weight on his right knee resulting in fall injuring his right leg and knee. He now has blood culture positive for beta strep A. He is currently on Unasyn. Status post drainage right prepatellar bursa demonstrating no growth and drainage from right suprapatellar bursa has come back positive for beta group A strep. He seemed to have responded on IV Unasyn. He is ready for discharge on Augmentin for total 3 weeks. At this point insurance issues are holding his discharge. Plan Augmentin for 2 more weeks upon discharge Follow ID and ortho recommendations Switch to oral hyperglycemics Continue other home medication STR placement Current Medications Sig/Yenifer Start time Last Medication Dose Route Stop Time Status Admin Acetaminophen 650 MG .STK-MED ONE 08/19 1855 DC PO 08/19 1856 Acetaminophen 650 MG Q6P PRN 08/11 2115 AC 08/19 PO 1857 Acyclovir 1 JUICE 5 TIMES A DAY 08/17 1400 AC 08/20 TOP 08/21 1001 0453 Albuterol Sulfate 2 PUF Q4-6 PRN PRN 08/11 2100 AC INH Amoxicillin 500 MG 0030,1230,1830 08/19 1830 AC 08/20 PO 0006 Amoxicillin 500 MG TID 08/19 1120 DC 08/19 PO 1230 Ampicillin Sodium/ 3,000 MG Q6 08/11 2359 DC 08/19 Sulbactam Sodium IV 0551 Sodium Chloride 100 ML Aspirin Buffered 81 MG DAILY 08/12 1000 AC 08/19 PO 1021 Atorvastatin Calcium 20 MG 1700 08/12 1700 AC 08/19 PO 1716 Benzocaine 1 JUICE Q6P PRN 08/17 1400 AC TOP Docusate Sodium 100 MG DAILY PRN 08/19 0915 AC PO Enoxaparin Sodium 40 MG DAILY 08/12 1000 AC 08/19 SC 1021 Fluoxetine HCl 20 MG DAILY 08/12 1000 AC 08/19 PO 1021 Ibuprofen 600 MG .STK-MED ONE 08/19 1700 DC PO 08/19 1701 Ibuprofen 600 MG Q6P PRN 08/11 2115 AC 08/19 PO 1717 Insulin Aspart 0 TIDAC 08/12 0800 AC 08/19 SC 1717 Lactobacillus 1 CAP DAILY 08/17 1137 AC 08/19 Acidophilus PO 1021 Losartan Potassium 50 MG DAILY 08/12 1000 AC 08/19 PO 1020 Morphine Sulfate 2 MG Q6-PRN PRN 08/11 2114 AC IV Tamsulosin HCl 0.4 MG 2200 08/12 2200 AC 08/19 PO 2127 Tiotropium [place] 1 PUF DAILY 08/12 1000 AC 08/19 INH 1021 Trazodone HCl 25 MG QPM 08/11 2200 AC 08/19 PO 2126 Vital Signs Date Time Temp Pulse Resp B/P B/P Pulse O2 O2 Flow FiO2 Mean Ox Delivery Rate 08/20 617 97.5 64 20 145/77 96 08/20 0026 74 94 08/20 0000 Nasal 2.0L Cannula 08/19 2240 98.0 70 20 120/70 93 Room Air 08/197 72 94 08/19 2126 120/70 08/19 1450 97.4 74 20 130/70 96 08/19 1020 73 126/70
--- NOTE | 2016-08-20 10:20 | PN- Housestaff ---
Subjective Follow-up For: Right lower extremity cellulitis Right knee bursitis Cold sores (oral mucosa) Subjective: I saw and examined the patient today morning He is sitting comfortably on the chair, reports feeling 2/10 pain in the right knee region. He feels his leg erythema is improving but not back to baseline. No significant overnight events. Review of Systems Constitutional: Reports: see HPI. Comments: ROS negative except the above Objective Last 24 Hrs of Vital Signs/I&O Vital Signs Date Time Temp Pulse Resp B/P B/P Pulse O2 O2 Flow FiO2 Mean Ox Delivery Rate 08/20 0618 97.5 64 20 145/77 96 08/20 0026 74 94 08/20 0000 Nasal 2.0L Cannula 08/19 2241 98.0 70 20 120/70 93 Room Air 08/19 2147 72 94 08/19 2127 120/70 08/19 1450 97.4 74 20 130/70 96 08/19 1020 73 126/70 Intake & Output 08/20 1600 08/20 0800 08/20 0000 Intake Total 240 Output Total 1175 175 Balance -935 -175 Intake, Oral 240 Output, Urine 1175 175 Physical Exam General Appearance: Alert, Oriented X3, Cooperative Skin: dressing present in the right knee region. Erythema over the feet and legs - improving HEENT: Atraumatic, PERRLA, EOMI Neck: Supple Cardiovascular: Normal S1, Normal S2 Lungs: Clear to Auscultation, Normal Air Movement Abdomen: Normal Bowel Sounds, Soft, No Tenderness Extremities: No Clubbing, No Cyanosis Assessment/Plan Assessment: Mr. Sol is a 75 y/o M with PMHx of non-insulin dependent T2DM, TORI on CPAP and recent I&D and flap closure of complicated laceration of right foot with retained foreign body (07/17) who is admitted for sepsis secondary to right leg cellulitis. #Sepsis - resolved Presented with fever, chills and right leg erythema. Had fever with temperature of 101.8 at home but afebrile here. WBC count 14.5 with 5% bands on admission. Most likely 2/2 right leg cellulitis and bacteremia. Otherwise hemodynamically stable with lactic acid of 1.3. * Vitals per protocol * Management for cellulitis/bacteremia as below # Cellulitis in RLE Recent I&D and flap closure of complicated laceration of right foot with retained foreign body (07/17) followed by 3 weeks of doxycycline. Xray and MRI with no evidence of osteomyelitis. Patient receiving antibiotics with an appropriate response. * Continue amoxicillin 500mg TID for a total of 3 weeks (till september 01 2016) * BCx - growing beta group A strep in both bottles * ID following, appreciate recs * Wound care consulted, appreciate recs * stable for discharge today # Knee pain Patient endorses excruciating tenderness and effusion in the right knee. Knee xray showed no fracture/dislocation or joint effusion. Moderate prepatellar soft tissue swelling. Most likely bursitis and cellulitis, consistent with U/S finding * S/p arthrocentesis of the patella on 08/15 and suprapatella on 08/16 * aspiraton culture - moderate GPC and WBCs in both fluids * Adequate pain control #Non-insulin dependent T2DM: Takes metformin ER 1000 mg PO daily. * Hold oral hypoglycemic agents while inpatient. * Accu-checks and low-dose sliding scale Novolog TIDAC. * HbA1c - 6.8 * Will convert to Oral Hypoglycemic once discharged. #HTN: * Continue fegun-sv-yeigrewpq losartan 50 mg PO daily. #HLD: Takes simvastatin 40 mg PO daily and daily low-dose aspirin. * Atorvastatin 20 mg PO daily while inpatient. * Continue wzjge-pl-ovdgcqgqt aspirin 81 mg PO daily. #COPD: Not on home oxygen. Currently not in exacerbation. Satting well on room air. * Continue dgpqc-ma-ejqvbmlkm Incruse Ellipta 62.5 mg 1 puff daily and albuterol inhaler PRN. #TORI: * Continue nocturnal CPAP. #BPH: * Continue tamsulosin 0.4 mg PO daily. #Depression: * Continue khvqz-zs-lsulxokee fluoxetine 20 mg PO daily. #Insomnia: * Continue amnuy-qw-yltaadgsc trazodone 25 mg PO daily. Diet: Consistent Carbohydrate 3 DVT PPx: Lovenox and ALPs CODE: FULL Problem List: 1. Cellulitis of right lower extremity Pain Ratin Pain Location: right knee Pain Goal: Pain 4 or less Pain Plan: tylenol Tomorrow's Labs & Rationales: none Consulting Request: Consulting Specialty: Orthopedics Consulting Physician: Dr. Brian Reason for Consult: Prepatelar bursa collection for aspiration
[2016-08-20 14:33] VITALS: BP 142/82
--- NOTE | 2016-08-20 14:47 | PN- Infect Dx ---
Subjective Subjective: Afebrile. He feels overall improved. Objective Last 24 Hrs of Vital Signs/I&O Vital Signs Date Time Temp Pulse Resp B/P B/P Pulse O2 O2 Flow FiO2 Mean Ox Delivery Rate 08/20 1433 99.1 74 20 142/82 95 Room Air 08/20 1029 78 125/78 08/20 0618 97.5 64 20 145/77 96 08/20 0026 74 94 08/20 0000 Nasal 2.0L Cannula 08/19 2241 98.0 70 20 120/70 93 Room Air 08/19 2147 72 94 08/19 2127 120/70 08/19 1450 97.4 74 20 130/70 96 Intake & Output 08/20 1600 08/20 0800 08/20 0000 Intake Total 240 Output Total 900 1175 175 Balance -900 935 -175 Intake, Oral 240 Output, Urine 900 1175 175 Physical Exam Other Physical Findings: He appears comfortable in no acute distress Extremities persistent swelling of the right leg below the knee, with mild erythema and minimal tenderness on palpation on the medial aspect; mild swelling and erythema in the right suprapatellar area persists, with slight tenderness on palpation; no further erythema or swelling of the right prepatellar area Results Last 24 Hours of Lab Results: No labs from today Last 24 Hours of Faheem Results: No recent cultures Assessment/Plan Impression: Stable with temperatures remaining normal and with his last white blood cell count also normal now on Amoxicillin Day 9 of treatment for Group A strep sepsis secondary to cellulitis, presumably related to the right foot plantar wound, with right suprapatellar and right prepatellar inflammation, both of which have improved status post drainage of purulent material from both the superficial suprapatellar collection and the prepatellar bursa. Suggestion: 1. Continue Amoxicillin for 12 more days to complete a 3 week course of antibiotics
[2016-08-20 17:04] VITALS: BP 142/82
== END 2016-08-20 17:15 | DRG 862 ==
LOC: ERH 16:40 → 2NB 18:49 → ERHI 18:49 → 2NB 18:49 → ENRESERV 19:41 → ENTRNSPT 20:18 → 2NB 20:53 → CMPTRNSPT 21:07 → ENPENDDIS 08-20 15:28 → 2NB 08-20 17:15
PROVIDERS: Physical Medicine & Rehabilitation; Physician Assistant Medical; Preventive Medicine Public Health & General Preventive Medicine; ADMIT Internal Medicine
PROC: 0S9C3ZX Drainage of Right Knee Joint, Percutaneous Approach, Diagnostic (ICD-10-PCS; principal; 2016-08-14)
DX: T81.4XXA Infection following a procedure, initial encounter (principal); A40.0 Sepsis due to streptococcus, group A; J96.11 Chronic respiratory failure with hypoxia; T81.31XA Disruption of external operation (surgical) wound, not elsewhere classified, initial encounter; E11.621 Type 2 diabetes mellitus with foot ulcer; L03.115 Cellulitis of right lower limb; J44.1 Chronic obstructive pulmonary disease with (acute) exacerbation; L97.411 Non-pressure chronic ulcer of right heel and midfoot limited to breakdown of skin; I10 Essential (primary) hypertension; E78.5 Hyperlipidemia, unspecified; G47.33 Obstructive sleep apnea (adult) (pediatric); N40.0 Benign prostatic hyperplasia without lower urinary tract symptoms; Z79.84 Long term (current) use of oral hypoglycemic drugs; W18.30XA Fall on same level, unspecified, initial encounter; Z79.82 Long term (current) use of aspirin; F32.9 Major depressive disorder, single episode, unspecified; G47.00 Insomnia, unspecified; Y83.4 Other reconstructive surgery as the cause of abnormal reaction of the patient, or of later complication, without mention of misadventure at the time of the procedure; D64.9 Anemia, unspecified; M71.161 Other infective bursitis, right knee; Z87.891 Personal history of nicotine dependence; Z96.641 Presence of right artificial hip joint
CPT/HCPCS: 2NBSP; 75654; 75657; 87075; 36415; 73560-RT; 73590-RT; 73630-RT; 76881; 82436; 87040; 87071; 87147; 89060; 93005; 93010; 96360; 96361; 97110-GO; 97116-GO; 97162-GP; 97530-GO; J0690; J0713; J1650; J3370; J3490; J7040